=== PATIENT | female | born 1940 | race Caucasian/White ===

== ENCOUNTER 2017-03-29 04:22 | Inpatient (IN) | payer MEDICARE, OTHER ==
[2017-03-29] MEDS: traMADol 50 MG Tab PO PRN ×3 (06:32→18:13)
--- NOTE | 2017-03-29 09:06 | PCM.HP ---
H&P History of Present Illness - General Date of Service: 03/29/17 Admit Problem/Dx: Admission Diagnosis/Problem Admission Diagnosis/Problem Knee pain Source of Information: Patient, Old Records History Limitations: Reports: No Limitations - History of Present Illness Initial Comments - Free Text/Narative: 76-year-old female fell last night. She landed on left knee and complains of left knee swelling and pain. Pain is severe to the point that she is unable to bear any weight. Is associated with redness and stiffness. No fever or chills. She has a history of polymyositis, this has been stable on methotrexate and prednisone. She also has a history of PEs but recently was taken off anticoagulation. She denies any head injury chest pain or shortness of breath. Left Knee Pain Score (Numeric/FACES): 6 - Related Data Allergies/Adverse Reactions: Allergies Allergy/AdvReac Type Severity Reaction Status Date / Time ketorolac [From Toradol] Allergy Hives Verified 03/29/17 04:33 Bee Stings Allergy Hives Uncoded 03/29/17 04:33 Home Medications: Home Meds Folic Acid 800 mcg PO DAILY 05/19/16 [History] Glucosamine & Chonroitin Chewable 2 tab PO DAILY 05/19/16 [History] predniSONE [Prednisone] 5 mg PO DAILY 05/19/16 [History] EPINEPHrine [Epipen] 0.3 mg IM ONETIME PRN 06/28/16 [History] Calcium Carb/Vitamin D3/Vit K1 [Viactiv Soft Chew] 1 tab PO DAILY 03/29/17 [ History] Cholecalciferol (Vitamin D3) [Vitamin D3] 1,000 unit PO DAILY 03/29/17 [History] Methotrexate 10 mg PO WE@,18 03/29/17 [History] Multivitamin [Multivitamins] 2 tab PO DAILY 03/29/17 [History] Past Medical History HEENT History: Reports: Impaired Vision Cardiovascular History: Reports: Other (See Below) Other Cardiovascular History: June 2016: Presently has blood clot between toes on right foot. 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 Genitourinary History: Reports: None [employer] WORK[employer] History: Reports: , Other (See Below) Other OB/BYN History: total hysterectomy Musculoskeletal History: Reports: Other (See Below) Other Musculoskeletal History: IBM - Past Surgical History GI Surgical History: Reports: Appendectomy, Colonoscopy, EGD, Esophageal Dilatation Female Surgical History: Reports: Hysterectomy, Salpingo-Oophorectomy Musculoskeletal Surgical History: Reports: Hip Replacement Social & Family History - Family History Family Medical History: Noncontributory Cardiac: Reports: CAD Neurological: Reports: CVA Oncologic: Reports: Breast, Colon - Tobacco Use Smoking Status *Q: Never Smoker Second Hand Smoke Exposure: No - Caffeine Use Caffeine Use: Reports: Coffee Other Caffeine Use: 8 cups per day - Recreational Drug Use Recreational Drug Use: No H&P Review of Systems - Review of Systems: Review Of Systems: ROS reveals no pertinent complaints other than HPI. Exam - Exam Exam: See Below - Vital Signs Vital Signs: Last Vital Signs Temp 97.4 F 03/29/17 06:00 Pulse 72 03/29/17 06:00 Resp 16 03/29/17 06:00 BP 94/57 L 03/29/17 06:00 Pulse Ox 97 03/29/17 06:00 Weight: 47.4 kg - Exam General: Alert, Oriented, 4 HEENT: PERRLA, Hearing Intact, Mucosa Moist & [place], Nares Patent, Normal Nasal Septum, Posterior Pharynx Clear, Conjunctiva Clear, EOMI, EACs Clear, TMs Clear Neck: Supple, Trachea Midline, 2 Lungs: Clear to Auscultation, Normal Respiratory Effort Cardiovascular: Regular Rate, Regular Rhythm Abdomen: Normal Bowel Sounds, Soft (Female) Exam: Deferred Rectal (Female) Exam: Deferred Back Exam: Normal Inspection, Full Range of Motion, NT Extremities: Other (left knee effusion.tense.Tender.Decreased ROM) Skin: Warm, Dry, Intact Neurological: Cranial Nerves Intact, Reflexes Equal Bilateral Neuro Extensive - Mental Status: Alert, Oriented x3, Normal Mood/Affect, Normal Cognition Neuro Extensive - Motor, Sensory, Reflexes: CN II-XII Intact, Normal Gait, Normal Reflexes Psychiatric: Alert, Normal Affect, Normal Mood - Patient Data Result Diagrams: 03/30/17 05:50 03/30/17 05:50 *Q Meaningful Use (ADM) - VTE *Q VTE Criteria *Q: - Stroke *Q Stroke Criteria *Q: - AMI *Q AMI Criteria *Q: - Problem List (1) Hemarthrosis SNOMED Code(s): 70763418 ICD Code: M25.00 - HEMARTHROSIS, UNSPECIFIED JOINT Status: Acute Current Visit: Yes (2) Polymyositis SNOMED Code(s): 73347779 ICD Code: M33.20 - POLYMYOSITIS, ORGAN INVOLVEMENT UNSPECIFIED Status: Acute Current Visit: Yes (3) IBM (inclusion body myositis) SNOMED Code(s): 50648853 ICD Code: G72.41 - INCLUSION BODY MYOSITIS [IBM] Status: Acute Current Visit: Yes (4) Anemia SNOMED Code(s): 892882503 ICD Code: D64.9 - ANEMIA, UNSPECIFIED Status: Acute Current Visit: Yes (5) H/O venous thrombosis and embolism SNOMED Code(s): 096548733, 535084058 ICD Code: Z86.718 - PERSONAL HISTORY OF OTHER VENOUS THROMBOSIS AND EMBOLISM Status: Acute Current Visit: Yes Problem List Initiated/Reviewed/Updated: Yes Orders Last 24hrs: Medication Orders Enoxaparin Sodium (Lovenox) 30 mg SUBCUT DAILY EWA Tramadol HCl (Ultram) 50 mg PO Q6H PRN PRN Reason: Breakthrough Pain Last Admin: 03/29/17 06:32 Dose: 50 mg Assessment/Plan Comment:: I have consulted Dr. Chaidez, to determine further treatment options. I believe rest elevation ice might help we'll also use tramadol when necessary for pain. I 've asked physical outpatient therapy for evaluation to determine ambulation and disposition. I'll keep an eye on the anemia with a check of hemoglobin daily. We'll give her Lovenox in view of recent PE's for DVT and VTE prophylaxis
--- NOTE | 2017-03-29 14:51 | CR ---
INDICATION: Swollen knee. COMPARISON: None. LEFT KNEE SERIES: Mild degenerative osteoarthritis change tricompartmental regions. Mild suprapatellar joint effusion. No acute fracture, dislocation, destructive change otherwise. Heterotopic calcific nodular foci with lucent centers may represent phleboliths in the anterior prepatellar, suprapatellar region. Marked increased thickening, with lobular margins of the soft tissues of the medial compartment distal thigh, knee region anteriorly. IMPRESSION: 1. Mild degenerative osteoarthritis change with no other evidence of acute osseous pathology. 2. Lobular increased soft tissue thickening anterior medial compartment distal thigh, knee region, which may represent diffuse edema, inflammatory change from posttraumatic or inflammatory process versus possible large mass-like region which may represent fluid collection such as hematoma or seroma or other mass etiologies. If clinical suspicion exists for a fluctuant or a mass process in this region, then at least correlation with ultrasound would be recommended for further evaluation. MTDD
[2017-03-29] MEDS: Acetaminophen 325 MG Tab PO PRN ×2 (17:28→21:56)
[2017-03-29] MEDS: Enoxaparin 30 MG/0.3 ML Syringe SUBCUT SCH (17:30)
--- NOTE | 2017-03-29 22:04 | CONS ---
DATE OF CONSULTATION: 03/29/2017 PROBLEM: Left knee pain. HISTORY OF PRESENT ILLNESS: This pleasant 76-year-old white female began having problems with the lower extremities approximately 3 years ago. She was diagnosed with inclusion-body polymyositis and has noted progressive weakening in both legs during ambulation. She currently uses a walker and walks approximately half a mile per day. This last Wednesday, this patient was walking and tripped on a sidewalk and fell. She landed directly on her left knee. She noted pain, was unable to get up, and was brought to the emergency room and examined. She could not bear weight and was noted to have a significant hematoma of the left knee, and therefore, was admitted. Dr. Mejia requested consultation this morning on this pleasant lady. In visiting with her today, she states that she has noted moderate swelling and developing ecchymosis on the anterior aspect of the left knee. She reports it is painful for her to move her knee and describes most of her pain in the suprapatellar area right above the patella. She denies any previous injuries to the knee or any knee problems other than muscular weakness. On further visiting with this patient, she states that approximately a year ago, she was hit by a door and fell to the floor. She had pain in both shoulders, but primarily the right one. It was examined and felt to have "ligament tears." An MRI apparently was taken and apparently, the comment made that she may need another one. Since her fall on the right shoulder, she reports that she has been left with difficulty with active abduction and has difficulty starting about 40 degrees of abduction. She has significant weakness. No pain on palpation over the AC joint. There is no deformity. She has good passive range of motion. No swelling. Empty water glass test is positive. PHYSICAL EXAMINATION: Examination of the patient's left knee reveals moderate hematoma, early bruising, and some abrasions to be present. There is no evidence of infection at this time. She has no instability in the AP or mediolateral dimensions when tested at 0 and 30 degrees. The patient has marked pain on palpation in the suprapatellar area of the left knee, but also with medial Meli's testing of the knee. Sensation is intact. She moves her toes well and peripheral pulses +1/4. ASSESSMENT: Rotator cuff tear, right shoulder, chronic. PLAN: I will proceed with a shoulder series to see if there is underlying osteoarthritis and/or superior migration of the humeral head. I have also ordered an MRI. I believe, it is important to evaluate her right shoulder since she has a lower extremity weakness, she will need shoulder strength for assisted ambulation with her walker. Concerning her left knee, I am concerned that she has a distal quadriceps tendon tear that may necessitate surgery. Since she also has a positive medial Meli's, the MRI will evaluate the menisci as well. The patient understands our treatment plan, agrees, and therefore, radiological studies will be performed today with further discussion tomorrow based upon these radiological findings. I thank Dr. Finn for this interesting consult. Respectfully, /[id number] NIKHIL/TERRELL
[2017-03-30] MEDS: traMADol 50 MG Tab PO PRN ×3 (04:15→20:21)
--- NOTE | 2017-03-30 08:42 | ER ---
DATE SEEN: 03/29/2017 CHIEF COMPLAINT: Fall. HISTORY OF PRESENT ILLNESS: A 76-year-old female who fell on the left knee yesterday evening, comes back because of increasing swelling and pain. Moderate pain, associated with any movement and is spreading. She has a history of polymyositis and uses a walker. PAST MEDICAL HISTORY: DVT and PE. MEDICATIONS: Reviewed. ALLERGIES: Reviewed. PHYSICAL EXAMINATION: GENERAL: She is not in distress. VITAL SIGNS: Blood pressure is normal. Pulse 80 and temperature is 98. MUSCULOSKELETAL: Left knee moderate hip arthrosis, tenderness around the patella, decreased range of motion. LABORATORY DATA: Pending. IMAGING: Lot of soft tissue swelling, but no fracture noted. IMPRESSION: Hemarthrosis of the left knee. PLAN: Admit the patient. Involve Physical and Occupational Therapy, and Dr. Chaidez. Control pain. /[id number] FANTA/TERRELL
[2017-03-30] MEDS: Calcium Carbonate/Vitamin D3 1250 MG-200 Unit Tab PO SCH (08:56)
[2017-03-30] MEDS: predniSONE 5 MG Tab PO SCH (08:56)
[2017-03-30] MEDS: Multivitamin, Childrens Tab.Chew PO SCH (08:56)
[2017-03-30] MEDS: Cholecalciferol (Vitamin D3) 1,000 Unit Tab PO SCH (08:56)
[2017-03-30] MEDS: Folic Acid 0.8 MG Tab PO SCH (08:56)
[2017-03-30] MEDS: Enoxaparin 30 MG/0.3 ML Syringe SUBCUT SCH (08:57)
[2017-03-30] MEDS: CHONDROITIN PO SCH (08:59)
[2017-03-30] MEDS: GLUCOSAMINE PO SCH (08:59)
[2017-03-30] MEDS ORDERED: [UNRECOGNIZED DRUG - OTHER] PO SCH (09:00)
--- NOTE | 2017-03-30 11:52 | PN ---
DATE SEEN: 03/30/2017 CHIEF COMPLAINT: Knee pain. HISTORY OF PRESENT ILLNESS: This is a 76-year-old female admitted for knee pain and chronic right shoulder pain. The pain in the knee is better, swelling has slightly improved, but she is not able to bear any weight. REVIEW OF SYSTEMS: No fever or chills. PAST MEDICAL HISTORY: [facility]. PHYSICAL EXAMINATION: GENERAL: Well nourished. VITAL SIGNS: Blood pressure 109/59. She is afebrile. MUSCULOSKELETAL: Left knee moderate effusion, slightly fluctuant, better range of motion than yesterday. Normal peripheral pulses. IMAGING: MRI of the right knee showed effusion, possible small meniscal tear. IMPRESSION: 1. Left knee pain and hemarthrosis. 2. Anemia. Hemoglobin is 8.3 today. 3. Right shoulder pain, chronic. PLAN: Continue with treatment with ice, elevation, and ibuprofen. I will repeat a CBC tomorrow morning. I appreciate the wisdom and consultation from Dr. Chaidez, who will see her later today. /[id number] FANTA/TERRELL
[2017-03-30] MEDS: Acetaminophen 325 MG Tab PO PRN (21:55)
[2017-03-30] MEDS ORDERED: Ondansetron 4 MG/2 ML SDV IVPUSH PRN (22:16)
[2017-03-30] MEDS: Morphine 2 MG/ML Syringe IVPUSH PRN (22:29)
[2017-03-30] MEDS: Sodium Chloride 0.9% 10 ML Syringe FLUSH PRN (22:41)
[2017-03-31] MEDS: Sodium Chloride 0.9% 10 ML Syringe FLUSH PRN ×6 (00:27→18:52)
[2017-03-31] MEDS: Morphine 4 MG/ML Syringe IVPUSH PRN ×8 (00:27→23:37)
[2017-03-31] MEDS: Morphine 2 MG/ML Syringe IVPUSH PRN (04:47)
[2017-03-31] MEDS: Methotrexate 2.5 MG Tab PO SCH ×2 (07:46→17:54)
[2017-03-31] MEDS ORDERED: METHOTREXATE 10 MG PO SCH (08:00)
[2017-03-31] MEDS: Multivitamin, Childrens Tab.Chew PO SCH (08:04)
[2017-03-31] MEDS: predniSONE 5 MG Tab PO SCH (08:04)
[2017-03-31] MEDS: Calcium Carbonate/Vitamin D3 1250 MG-200 Unit Tab PO SCH (08:04)
[2017-03-31] MEDS: Cholecalciferol (Vitamin D3) 1,000 Unit Tab PO SCH (08:04)
[2017-03-31] MEDS: Folic Acid 0.8 MG Tab PO SCH (08:04)
[2017-03-31] MEDS: CHONDROITIN PO SCH (08:06)
[2017-03-31] MEDS: GLUCOSAMINE PO SCH (08:06)
[2017-03-31] MEDS ORDERED: Sodium Chloride 0.9% 250 ML IV SCH (08:15)
[2017-03-31] MEDS: Acetaminophen/HYDROcodone 325-5 MG Tab PO SCH ×3 (08:48→20:02)
--- NOTE | 2017-03-31 12:28 | PN ---
DATE SEEN: 03/31/2017 CHIEF COMPLAINT: Left knee pain. HISTORY OF PRESENT ILLNESS: This is a 76-year-old female, who was here yesterday. She had fallen the day before and injured the left knee. She complains of pain overnight that was uncontrollable. She got 4 mg of morphine, that apparently helped around 0300 hours. The swelling has worsened. PAST MEDICAL HISTORY: IBM, hypertension. ALLERGIES: Ketoralac. REVIEW OF SYSTEMS: No fever, chest pain, or shortness of breath. PHYSICAL EXAMINATION: VITAL SIGNS: Blood pressure is 111/50 and temperature is 97.6. CARDIOVASCULAR: Normal. EXTREMITIES: Revealed marked swelling of the knee, fluctuant, extremely tender, and stiff. There is also swelling extending up to the midthigh area. LABORATORY DATA: Hemoglobin 7.3 this morning. Sodium is 131. IMPRESSION: 1. Hemarthrosis and hematoma left knee and left thigh. 2. Anemia from blood loss. 3. IBM, stable, chronic. PLAN: 1. Discontinue Lovenox. 2. Start hydrocodone 1 tablet every 6 hours scheduled, use morphine p.r.n. 3. Type and cross transfuse 1 unit of PRBCs. Repeat a CBC in the morning. 4. Continue elevation and ice. /[id number] FANTA/TERRELL
--- NOTE | 2017-03-31 13:14 | CR ---
INDICATION: Rule out possible patellar tendon disruption. (MRI may be inconclusive.) KNEES, 2 VIEWS: Both lateral views show good position and alignment without any significant variation of patellar height on both lateral views. MTDD
[2017-03-31] MEDS: Docusate Sodium 100 MG Cap PO SCH ×2 (14:05→20:02)
--- NOTE | 2017-03-31 16:18 | PN ---
DATE SEEN: 03/31/2017 PROBLEM: 1. Hematoma, left knee. 2. Meniscal tear medial meniscus, left knee. SUBJECTIVE: The patient states that she had a very uncomfortable night and has some pain when she tries to move her leg. She is concerned about the ecchymosis developing around it as well. OBJECTIVE: Today, her vital signs are stable except her blood pressure is 92/47. The patient's hemoglobin is also down to 7.9. Her neurovascular integrity is intact. The swelling is less pronounced around the knee. No evidence of infection. In trying to put a brace on her leg today, she stated it was too uncomfortable, therefore we did not do it. She does not want to get up and try ambulation today. Dr. Finn has discontinued physical therapy today. ASSESSMENT: 1. Hematoma, left knee. 2. Meniscal tear medial meniscus, left knee. 3. Anemia. PLAN: 1. Orthopedically, we will delay her physical therapy today because of her discomfort. When she is up, she can weight bear as tolerated with the brace on. Brace is to be off while she is in bed. 2. The patient will restart her aspirin as antithrombotic agent 325 mg p.o. b.i.d. 3. Dr. Finn will continue to follow medically and address her anemia (the patient states she is receiving transfusion today). /[id number] NIKHIL/TERRELL
[2017-03-31] MEDS: Aspirin 325 MG Tab.EC PO SCH (20:02)
[2017-04-01] MEDS: Acetaminophen/HYDROcodone 325-5 MG Tab PO SCH ×2 (01:49→07:41)
[2017-04-01] MEDS: Morphine 4 MG/ML Syringe IVPUSH PRN (06:04)
[2017-04-01] MEDS: Sodium Chloride 0.9% 10 ML Syringe FLUSH PRN (07:32)
[2017-04-01] MEDS: GLUCOSAMINE PO SCH (08:52)
[2017-04-01] MEDS: CHONDROITIN PO SCH (08:52)
[2017-04-01] MEDS: predniSONE 5 MG Tab PO SCH (08:53)
[2017-04-01] MEDS: Aspirin 325 MG Tab.EC PO SCH (08:53)
[2017-04-01] MEDS: Folic Acid 0.8 MG Tab PO SCH (08:53)
[2017-04-01] MEDS: Docusate Sodium 100 MG Cap PO SCH (08:53)
[2017-04-01] MEDS: Cholecalciferol (Vitamin D3) 1,000 Unit Tab PO SCH (08:53)
[2017-04-01] MEDS: Calcium Carbonate/Vitamin D3 1250 MG-200 Unit Tab PO SCH (08:53)
[2017-04-01] MEDS: Multivitamin, Childrens Tab.Chew PO SCH (08:53)
[2017-04-01 09:36] VITALS: BP 100/60
--- NOTE | 2017-04-01 09:55 | PN ---
DATE SEEN: 04/01/2017 CHIEF COMPLAINT: Leg and knee pain. HISTORY OF PRESENT ILLNESS: A 76-year-old female with soft tissue injury to the left knee causing hemarthrosis and hematoma. Pain is better. She slept well last night. REVIEW OF SYSTEMS: She feels weak. Denies chest pain or shortness of breath. ALLERGIES: Reviewed. MEDICATIONS: Reviewed. PHYSICAL EXAMINATION: VITAL SIGNS: Blood pressure is 119/69 and pulse is 82. She is afebrile. CARDIOVASCULAR: Normal. RESPIRATIONS: Clear. MUSCULOSKELETAL: Revealed marked swelling of the left thigh and knee. Mildly tender to palpation and warm. Extremities have normal peripheral pulses. LABORATORY DATA: Labs today; hemoglobin is up to 8.6. Electrolytes are normal with the exception of sodium which is 132. FINAL IMPRESSION: 1. Hematoma, left thigh. 2. Hemarthrosis of the left knee. 3. Anemia from blood loss. 4. Inclusion body myositis, chronic. 5. History of pulmonary embolism. PLAN: The patient might go to swing bed for rehab today with continuation of conservative measures, pain control, and a repeat hemoglobin. /[id number] FANTA/TERRELL
--- NOTE | 2017-04-02 09:22 | DISCH ---
DISCHARGE DATE: 04/01/2017 REASON FOR ADMISSION: Hemarthrosis of the left knee. DISCHARGE DIAGNOSES: Hemarthrosis, left knee; hematoma, left thigh; anemia of blood loss; inclusion body myositis; and history of pulmonary embolisms. PROCEDURES: None. CONSULTATIONS: Dr. Chaidez and Physical Therapy. BRIEF HISTORY: A 76-year-old female who fell, landed on the left knee, came in with pain and inability to bear any weight and swelling. She was found to have a huge swelling and effusion to the left knee. She was admitted for pain control and a consultation with Dr. Chaidez, who did an MRI that did not show any significant surgical findings. Her hemoglobin dropped to 7.3, necessitating 1 unit of PRBCs. Her pain was controlled initially by oral tramadol, but later by morphine and hydrocodone as needed. She was deemed unable to go back home because she is not able to bear weight right away. As such, she is being discharged to swing bed for physical strengthening and disposition. DISCHARGE MEDICATIONS: She will use hydrocodone p.r.n. for pain and continue the home doses of methotrexate and prednisone. Please note that I spent more than 35 minutes in the discharge of the patient. /[id number] FANTA/TERRELL
--- NOTE | 2017-05-11 15:01 | CR ---
INDICATION: Osteoarthritis. RIGHT SHOULDER, 3 VIEWS: Three views of the right shoulder revealed no evidence of fracture or dislocation. Mild osteoarthritis is noted. MTDD
== END 2017-04-01 09:20 | disposition swing bed (61) | DRG 554 ==
LOC: FB.ED 04:22 → FB.MS 05:29 → OBSVTOIN 17:09
PROVIDERS: ADMIT Family Medicine; ATTEND Family Medicine
DX: M25.062 Hemarthrosis, left knee (principal); D62 Acute posthemorrhagic anemia; M25.552 Pain in left hip; M33.20 Polymyositis, organ involvement unspecified; S70.12XA Contusion of left thigh, initial encounter; W19.XXXA Unspecified fall, initial encounter; G72.41 Inclusion body myositis [IBM]; Z86.711 Personal history of pulmonary embolism; M25.512 Pain in left shoulder; M75.121 Complete rotator cuff tear or rupture of right shoulder, not specified as traumatic
CPT/HCPCS: 36415; 73030; 73221; 73562; 73721; 80048; 85025; 99285; A9270 ×2; 36430; 73560-50; 80053; 86850; 86900; 86901; 86920; 86922; 97165-GO; 99283; J1650; J2270; J7050; J8610; P9016

== ENCOUNTER 2017-04-01 09:24 | Inpatient (IN) | payer MEDICARE, OTHER ==
[2017-04-01] MEDS: Acetaminophen/HYDROcodone 325-5 MG Tab PO PRN ×2 (19:02→22:39)
[2017-04-01] MEDS: Docusate Sodium 100 MG Cap PO SCH (20:41)
[2017-04-01] MEDS: Enoxaparin 40 MG/0.4 ML Syringe SUBCUT SCH (20:42)
[2017-04-02] MEDS: Acetaminophen/HYDROcodone 325-5 MG Tab PO PRN ×2 (04:49→09:30)
--- NOTE | 2017-04-02 08:28 | PN ---
DATE SEEN: 04/01/2017 A 76-year-old white female. DIAGNOSES: 1. Hematoma, left knee. 2. Contusion, left knee. 3. Medial meniscal tear, left knee. 4. Polymyositis with bilateral thigh atrophy. SUBJECTIVE: The patient states that she is doing better today. She feels, however, that the brace is uncomfortable, but does very well with an Phong wrap according to her description today, as well as the physical therapist. She has been transferred to swing bed with stable vital signs and neurovascular integrity intact. Resolving ecchymosis and swelling of the left knee is noted. Since she is progressing well, we will continue. She has had a pulmonary embolism in the past, so we will restart the Lovenox at 40 mg subcu daily since the time for continued bleeding into her left knee has passed. Her platelets on admission were over 400,000. Current vital signs are stable. /[id number] NIKHIL/TERRELL
[2017-04-02] MEDS ORDERED: GLUCOSAMINE PO SCH (09:00)
[2017-04-02] MEDS ORDERED: CHONDROITIN PO SCH (09:00)
[2017-04-02] MEDS: Docusate Sodium 100 MG Cap PO SCH ×2 (09:27→21:52)
[2017-04-02] MEDS: Calcium Carbonate/Vitamin D3 1250 MG-200 Unit Tab PO SCH (09:28)
[2017-04-02] MEDS: predniSONE 5 MG Tab PO SCH (09:28)
[2017-04-02] MEDS: Cholecalciferol (Vitamin D3) 1,000 Unit Tab PO SCH (09:28)
[2017-04-02] MEDS: Multivitamin, Childrens Tab.Chew PO SCH (09:28)
[2017-04-02] MEDS: Folic Acid 0.8 MG Tab PO SCH (09:28)
[2017-04-02] MEDS ORDERED: Acetaminophen/Codeine 300-30 MG Tab PO PRN (10:55)
[2017-04-02] MEDS: fentaNYL 12 MCG/HR Transdermal Patch TRDERM SCH (14:00)
--- NOTE | 2017-04-02 15:28 | PN ---
DATE SEEN: 04/02/2017 HISTORY: Elsa is a 76-year-old woman from [place], [place] with a history of severe myopathy and leg weakness. She has been managed by Dr. Pozo at [facility] with prednisone and methotrexate. The patient fell sustaining an injury to her left knee on 03/29/2017. She was admitted to [place]. X-ray and MRI of the knee were read as negative for fracture. She has been followed conservatively with physical therapy, Phong wrap, and pain medications. Since that time, she states that she was taking morphine 4 mg IV every 2 hours for the pain until she was switched to swing bed and her IV was taken out. She is wondering about getting a patch for pain. She is comfortable while laying. She is not having symptoms of infection, fever, chills, cough, dyspnea, chest pain, abdominal pain, or nausea. She still states that she is having pain in the left knee and the therapy has only progressed to up pulling herself with her feet in a wheelchair. PHYSICAL EXAMINATION: GENERAL: She is alert. She is a good historian. VITAL SIGNS: Blood pressure 108/74, pulse 87 and regular, respirations 18, O2 temperature 98.6, O2 saturation 98% on room air. SKIN. Anicteric. She has extensive ecchymoses centered at the left knee that extends up to the groin and onto her pubic tubercle area. This also extends down to the ankle on the left. She has no pubic area tenderness but marked tenderness to palpation of the knee. She does have extension to 180 degrees and flexion to greater than 90 degrees that is fairly comfortable and no pain on varus valgus stress of the knee. HEENT: Shows her mouth to be dry. Pupils are equal and reactive. Lungs are clear. HEART: Regular without murmur or gallop. ABDOMEN: Soft and nontender. EXTREMITIES: Showed ecchymotic and tender knee and leg as described above. She does have slight edema in the left foot, no edema in the right foot, and she is generally weak. LABORATORY DATA: Hemoglobin 8.0, MCV 83, and platelets 364 with creatinine 0.3. ASSESSMENT: 1. Contusion of left knee with large ecchymosis. 2. Severe myopathy with weakness on the immunosuppressive therapy. 3. History of pulmonary embolism. Currently on thrombosis prophylaxis with enoxaparin. 4. Anemia exacerbated by recent blood loss into the knee injury. PLAN: We will add oral iron, we will place a Duragesic 12 patch, and supplement her with p.r.n. Tylenol with codeine. She will continue physical therapy with increasing weightbearing as tolerated with plans to go home. In addition to this intervention, we will provide her palliative care for the pain and discomfort and ambulatory difficulty. I anticipate another 4 to 5 days of swing bed stay prior to returning home. /[id number] MARGARITA/MODL
[2017-04-02] MEDS: Acetaminophen/Codeine 300-30 MG Tab PO PRN ×2 (16:12→21:53)
[2017-04-02] MEDS: Ferrous Sulfate 325 MG Tab PO SCH (17:37)
[2017-04-02] MEDS: Enoxaparin 40 MG/0.4 ML Syringe SUBCUT SCH (21:52)
[2017-04-03] MEDS: Acetaminophen/Codeine 300-30 MG Tab PO PRN ×3 (07:41→19:41)
[2017-04-03] MEDS: Multivitamin, Childrens Tab.Chew PO SCH (08:49)
[2017-04-03] MEDS: Calcium Carbonate/Vitamin D3 1250 MG-200 Unit Tab PO SCH (08:49)
[2017-04-03] MEDS: predniSONE 5 MG Tab PO SCH (08:49)
[2017-04-03] MEDS: Folic Acid 0.8 MG Tab PO SCH (08:49)
[2017-04-03] MEDS: Cholecalciferol (Vitamin D3) 1,000 Unit Tab PO SCH (08:50)
[2017-04-03] MEDS: Docusate Sodium 100 MG Cap PO SCH ×2 (08:50→21:51)
[2017-04-03] MEDS: Ferrous Sulfate 325 MG Tab PO SCH ×2 (08:50→18:17)
[2017-04-03] MEDS: Enoxaparin 40 MG/0.4 ML Syringe SUBCUT SCH (21:51)
[2017-04-04] MEDS: Acetaminophen/Codeine 300-30 MG Tab PO PRN ×3 (01:31→21:51)
[2017-04-04] MEDS: Ferrous Sulfate 325 MG Tab PO SCH ×2 (08:35→17:11)
[2017-04-04] MEDS: predniSONE 5 MG Tab PO SCH (08:35)
[2017-04-04] MEDS: Cholecalciferol (Vitamin D3) 1,000 Unit Tab PO SCH (08:35)
[2017-04-04] MEDS: Calcium Carbonate/Vitamin D3 1250 MG-200 Unit Tab PO SCH (08:36)
[2017-04-04] MEDS: Multivitamin, Childrens Tab.Chew PO SCH (08:36)
[2017-04-04] MEDS: Folic Acid 0.8 MG Tab PO SCH (08:36)
[2017-04-04] MEDS: Docusate Sodium 100 MG Cap PO SCH ×2 (08:36→21:36)
--- NOTE | 2017-04-04 10:53 | PN ---
DATE SEEN: 04/04/2017 SUBJECTIVE: Elsa is a 76-year-old woman with severe generalized myopathy and leg weakness. She fell on March 29, sustained an injury to her left knee, and was seen at the emergency room at [place]. MRI was negative and she was admitted for pain control and rehab. She is in swing bed now for recuperation. She is getting physical therapy to the knee, but still has significant pain in the knee with ecchymosis. She was transfused for her anemia and is now on twice per day oral iron. PAST MEDICAL HISTORY: Also is positive for pulmonary embolism, so she is being prophylaxed with daily Lovenox. She is getting better pain control with her current Duragesic patch supplemented with Tylenol and codeine. OBJECTIVE: GENERAL: She is alert. She is a good historian. LUNGS: Clear. HEART: Regular. EXTREMITIES: Knee exam reveals ecchymoses that extends up to her upper groin and down to the mid leg, left side. She is able to lift the heel up off the bed with difficulty, but she reports pain with movement of the knee. LABORATORY DATA: Laboratory done 2 days ago showed a hemoglobin of 8 g, MCV 83, white count 5500, and platelets 364. ASSESSMENT: 1. Left knee contusion. No indication of occult fracture. The formal radiology reading of the MRI is still pending, however. 2. Underlying generalized myopathy, on immunosuppressive therapy. 3. History of pulmonary embolism. 4. Chronic anemia with additional blood loss anemia. PLAN: We will continue to provide physical therapy and analgesia for her acute knee injury as well as maintain her medications for the myopathy. We will provide palliative care for symptoms of pain, but anticipate she will return to home again independently. I will recheck labs again in 48 hours and hope for discharge to home within 1-2 weeks. /[id number] MARGARITA/TERRELL
[2017-04-04] MEDS: Enoxaparin 40 MG/0.4 ML Syringe SUBCUT SCH (21:36)
[2017-04-05] MEDS: Folic Acid 0.8 MG Tab PO SCH (08:44)
[2017-04-05] MEDS: Multivitamin, Childrens Tab.Chew PO SCH (08:44)
[2017-04-05] MEDS: predniSONE 5 MG Tab PO SCH (08:44)
[2017-04-05] MEDS: Cholecalciferol (Vitamin D3) 1,000 Unit Tab PO SCH (08:44)
[2017-04-05] MEDS: Ferrous Sulfate 325 MG Tab PO SCH ×2 (08:44→17:21)
[2017-04-05] MEDS: Calcium Carbonate/Vitamin D3 1250 MG-200 Unit Tab PO SCH (08:44)
[2017-04-05] MEDS: Docusate Sodium 100 MG Cap PO SCH ×2 (08:44→21:25)
[2017-04-05] MEDS: fentaNYL 12 MCG/HR Transdermal Patch TRDERM SCH (12:58)
[2017-04-05] MEDS: Magnesium Hydroxide 400 MG/5 ML Susp 30 ML Cup PO PRN (13:24)
[2017-04-05] MEDS: Acetaminophen/Codeine 300-30 MG Tab PO PRN ×2 (17:21→23:21)
[2017-04-05] MEDS: Enoxaparin 40 MG/0.4 ML Syringe SUBCUT SCH (21:24)
[2017-04-06] MEDS: Acetaminophen/Codeine 300-30 MG Tab PO PRN ×3 (07:32→22:27)
[2017-04-06] MEDS: predniSONE 5 MG Tab PO SCH (08:52)
[2017-04-06] MEDS: Multivitamin, Childrens Tab.Chew PO SCH (08:52)
[2017-04-06] MEDS: Ferrous Sulfate 325 MG Tab PO SCH ×2 (08:52→17:36)
[2017-04-06] MEDS: Calcium Carbonate/Vitamin D3 1250 MG-200 Unit Tab PO SCH (08:52)
[2017-04-06] MEDS: Folic Acid 0.8 MG Tab PO SCH (08:52)
[2017-04-06] MEDS: Cholecalciferol (Vitamin D3) 1,000 Unit Tab PO SCH (08:52)
[2017-04-06] MEDS: Docusate Sodium 100 MG Cap PO SCH ×2 (08:52→21:07)
--- NOTE | 2017-04-06 11:17 | PN ---
DATE SEEN: 04/06/2017 PROBLEMS: 1. Contusion of left knee with hematoma. 2. Left medial meniscal tear per MRI. 3. Irreparable rotator cuff tear, right shoulder. SUBJECTIVE: This pleasant patient states that she is making good progress with ambulation. She continues to work diligently with physical and occupational therapy. OBJECTIVE: Today, she has a resolving ecchymosis over the left knee. She does have some bullae superior medial to the knee. The largest one is about the size of a 50 cent piece and then about 5 mm in height. There is no evidence of infection. She moves her knee well. She continues with the positive medial Meli's. This patient denies any pain with ambulation, getting up out of a chair or twisting or turning, but does have the positive medial Meli's. If she is able to do daily living activities, I would not recommend arthroscopy. If she does have problems with stairs twisting, turning, getting up from a chair or squatting with the positive medial Meli's, then I would recommend diagnostic and operative arthroscopy. The patient will continue with PT and OT and further care for her other medical problems including chronic anemia with her primary care provider. /[id number] NIKHIL/TERRELL
--- NOTE | 2017-04-06 12:05 | PN ---
DATE SEEN: 04/06/2017 SUBJECTIVE: Elsa is a 76-year-old woman with severe myopathy and osteopenia who fell injuring her left knee. She was admitted to acute care on 03/29, consulted by Dr. Chaidez from Orthopedics and admitted to swing bed on 04/01/2017 for continued recuperation. She also injured her shoulder and has had prior shoulder pain as well limiting her ability to use crutches, walker, etc. The patient states she is feeling okay. She feels like the rehab is going very slowly and she has pain with movement of her knee. OBJECTIVE: VITAL SIGNS: Blood pressure 95/50, pulse 76 and regular, respirations 16, temp 97.9, O2 saturation 95% on room air. SKIN: Shows ecchymosis extending from the midthigh down to the ankle, left knee. There are two blood blisters overlying the knee. HEENT: Shows her to be alert, oriented, and a good historian. Respirations are easy. Pulses regular. EXTREMITIES: Edema of the left leg. Right leg is clear. LABORATORY DATA: Hemoglobin 8.1 g. MCV 86. Electrolytes normal. Review of the MRI report showed rotator cuff tear, right shoulder; medial meniscus injury, left knee; and probable patellar fracture, left knee. ASSESSMENT: 1. Left knee injury and right shoulder injury, healing slowly with rehab. 2. Chronic myopathy, on methotrexate and prednisone. 3. Anemia. 4. History of pulmonary embolism, on Lovenox prophylaxis. PLAN: We will continue rehab and analgesia as necessary. We will continue her iron therapy and anticipate at least another week of rehab with the plans to go home after that. /[id number] RO/MODL
[2017-04-06] MEDS: Enoxaparin 40 MG/0.4 ML Syringe SUBCUT SCH (21:07)
[2017-04-07] MEDS: Ferrous Sulfate 325 MG Tab PO SCH ×2 (09:01→17:56)
[2017-04-07] MEDS: Methotrexate 2.5 MG Tab PO SCH ×2 (09:02→17:56)
[2017-04-07] MEDS: Calcium Carbonate/Vitamin D3 1250 MG-200 Unit Tab PO SCH (09:03)
[2017-04-07] MEDS: Multivitamin, Childrens Tab.Chew PO SCH (09:03)
[2017-04-07] MEDS: Docusate Sodium 100 MG Cap PO SCH ×2 (09:03→20:38)
[2017-04-07] MEDS: Cholecalciferol (Vitamin D3) 1,000 Unit Tab PO SCH (09:04)
[2017-04-07] MEDS: predniSONE 5 MG Tab PO SCH (09:04)
[2017-04-07] MEDS: Acetaminophen/Codeine 300-30 MG Tab PO PRN ×3 (09:04→22:32)
[2017-04-07] MEDS: Folic Acid 0.8 MG Tab PO SCH (09:04)
[2017-04-07] MEDS: Enoxaparin 40 MG/0.4 ML Syringe SUBCUT SCH (20:38)
[2017-04-08] MEDS: Acetaminophen/Codeine 300-30 MG Tab PO PRN ×3 (05:57→21:40)
[2017-04-08] MEDS: Ferrous Sulfate 325 MG Tab PO SCH ×2 (08:39→19:29)
[2017-04-08] MEDS: Calcium Carbonate/Vitamin D3 1250 MG-200 Unit Tab PO SCH (08:39)
[2017-04-08] MEDS: Docusate Sodium 100 MG Cap PO SCH ×2 (08:40→20:58)
[2017-04-08] MEDS: Multivitamin, Childrens Tab.Chew PO SCH (08:40)
[2017-04-08] MEDS: predniSONE 5 MG Tab PO SCH (08:40)
[2017-04-08] MEDS: Folic Acid 0.8 MG Tab PO SCH (08:40)
[2017-04-08] MEDS: Cholecalciferol (Vitamin D3) 1,000 Unit Tab PO SCH (08:40)
--- NOTE | 2017-04-08 13:08 | PN ---
DATE SEEN: 04/08/2017 PROBLEMS: 1. Chronic rotator cuff tear, right shoulder. 2. Contusion, left knee, with hematoma. 3. Medial meniscal tear, left knee. SUBJECTIVE: The patient states she is doing well, but at times when she is walking, she will get a sharp pain in her knee. As discussed with her, this could possibly be related to her torn medial meniscus. OBJECTIVE: VITAL SIGNS: Today, the patient's vital signs are stable. MUSCULOSKELETAL: The patient's knee is healing well. There is no evidence of infection. She has 2 large bullae, and the bullae are punctured with an 18- gauge sterile needle. All fluid removed. Then, Xeroform, 4x4s, Phong wrap applied. PLAN: The patient will start warm soapy soaks on her knee twice a day. Continue with physical therapy. We will observe her progress and possible need for operative arthroscopy. /[id number] NIKHIL/TERRELL
--- NOTE | 2017-04-08 15:22 | PN ---
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 She fell and sustained an injury to her left knee consisting of medial meniscal tear and a likely nondisplaced patellar fracture. She has been treated with conservative therapy with physical therapy and analgesics since she had a significant hemoglobin drop with extensive ecchymosis about the left leg and knee. She has been progressing slowly in physical therapy. She still reports pain with movement. She has been on a Duragesic patch and I have just discontinued this. She is hoping to return to her home next week if therapy progresses adequately. PHYSICAL EXAMINATION: GENERAL: She is alert and comfortable. VITAL SIGNS: Blood pressure 122/40, pulse 80 and regular, respirations 18, temperature 97.5, and 93% O2 saturation on room air. SKIN: Clear except for the large ecchymosis from the left groin to the left ankle. She has a compression wrap in place about the knee. Her pulse is regular. NEUROLOGIC: Mental status exam is intact and other than the limitations from her left knee, she has symmetric extremity motion but generalized weakness. LABORATORY: Last hemoglobin 8.1 g, MCV 86, white count 4800, platelets 385, reticulocyte count 237. Electrolytes normal. Creatinine 0.2. ASSESSMENT: 1. Left knee injury post fall due to generalized idiopathic myopathy. 2. Anemia, chronic, with superimposed blood loss anemia. 3. Remote history of pulmonary embolism, now on enoxaparin prophylaxis. 4. Chronic idiopathic myopathy, on methotrexate and prednisone. PLAN: I have discussed with her staying off the Duragesic patch now and managing her pain with just oral medication. We have also had discussion about her potential return to home. I have encouraged her to consider assisted living as she does have stairs in her house and has to go up and down a flight of steps to go to the bathroom and to her shower every day. I have also discussed with her that she is not to be doing any driving. She will have her routine followup with Dr. Pozo regarding the myopathy once she has recuperated adequately from her knee injury. /[id number] RO/MODL
[2017-04-08] MEDS: Enoxaparin 40 MG/0.4 ML Syringe SUBCUT SCH (20:58)
[2017-04-09] MEDS: Acetaminophen/Codeine 300-30 MG Tab PO PRN ×2 (06:28→15:11)
[2017-04-09] MEDS: Ferrous Sulfate 325 MG Tab PO SCH ×2 (09:13→18:11)
[2017-04-09] MEDS: Calcium Carbonate/Vitamin D3 1250 MG-200 Unit Tab PO SCH (09:13)
[2017-04-09] MEDS: Multivitamin, Childrens Tab.Chew PO SCH (09:15)
[2017-04-09] MEDS: Folic Acid 0.8 MG Tab PO SCH (09:16)
[2017-04-09] MEDS: Docusate Sodium 100 MG Cap PO SCH ×2 (09:16→21:30)
[2017-04-09] MEDS: Cholecalciferol (Vitamin D3) 1,000 Unit Tab PO SCH (09:16)
[2017-04-09] MEDS: predniSONE 5 MG Tab PO SCH (09:16)
[2017-04-09] MEDS: Enoxaparin 40 MG/0.4 ML Syringe SUBCUT SCH (21:30)
[2017-04-10] MEDS: Acetaminophen/Codeine 300-30 MG Tab PO PRN ×3 (05:08→20:32)
[2017-04-10] MEDS: Ferrous Sulfate 325 MG Tab PO SCH ×2 (09:00→17:58)
[2017-04-10] MEDS: Multivitamin, Childrens Tab.Chew PO SCH (09:01)
[2017-04-10] MEDS: Cholecalciferol (Vitamin D3) 1,000 Unit Tab PO SCH (09:01)
[2017-04-10] MEDS: Folic Acid 0.8 MG Tab PO SCH (09:01)
[2017-04-10] MEDS: Docusate Sodium 100 MG Cap PO SCH ×2 (09:01→20:28)
[2017-04-10] MEDS: predniSONE 5 MG Tab PO SCH (09:01)
[2017-04-10] MEDS: Calcium Carbonate/Vitamin D3 1250 MG-200 Unit Tab PO SCH (09:01)
[2017-04-10] MEDS: Enoxaparin 40 MG/0.4 ML Syringe SUBCUT SCH (20:28)
[2017-04-11] MEDS: Acetaminophen/Codeine 300-30 MG Tab PO PRN ×3 (05:31→21:30)
[2017-04-11] MEDS: Calcium Carbonate/Vitamin D3 1250 MG-200 Unit Tab PO SCH (09:18)
[2017-04-11] MEDS: Docusate Sodium 100 MG Cap PO SCH ×2 (09:18→21:00)
[2017-04-11] MEDS: Multivitamin, Childrens Tab.Chew PO SCH (09:18)
[2017-04-11] MEDS: Ferrous Sulfate 325 MG Tab PO SCH ×2 (09:18→18:51)
[2017-04-11] MEDS: Folic Acid 0.8 MG Tab PO SCH (09:19)
[2017-04-11] MEDS: Cholecalciferol (Vitamin D3) 1,000 Unit Tab PO SCH (09:19)
[2017-04-11] MEDS: predniSONE 5 MG Tab PO SCH (09:19)
--- NOTE | 2017-04-11 17:07 | PCM.PN ---
- General Info Date of Service: 04/11/17 Admission Dx/Problem (Free Text): Patient states left knee still causes pain. He says Tylenol 3 helps with doesn' t take it away. She would like no pain but she understands that that she will have some and this is okay with her at this time. She lots of bruising. She states she was anemic was requesting if she hemoglobin to make sure her anemia is better. She had blood transfusions in the hospitalization. - Patient Data Vitals - Most Recent: Last Vital Signs Temp 97.9 F 04/11/17 08:00 Pulse 79 04/11/17 08:00 Resp 16 04/11/17 08:00 BP 91/55 L 04/11/17 08:00 Pulse Ox 98 04/11/17 08:00 Weight - Most Recent: 104 lb 9.6 oz I&O - Last 24 Hours: Intake & Output 04/11/17 04/11/17 04/11/17 06:59 14:59 22:59 Intake Total 200 Balance 200 Med Orders - Current: Current Medications Acetaminophen/Codeine Phosphate (Tylenol With Codeine No.3 300mg/30mg) 2 tab PO Q6H PRN PRN Reason: Pain Last Admin: 04/11/17 13:16 Dose: 2 tab Calcium Carbonate (Calcium Carbonate/Vitamin D 1250 Mg-200 Unit) 1 tab PO DAILY [facility] Last Admin: 04/11/17 09:18 Dose: 1 tab Cholecalciferol (Vitamin D3) 1,000 units PO DAILY [facility] Last Admin: 04/11/17 09:19 Dose: 1,000 units Docusate Sodium (Colace) 100 mg PO BID [facility] Last Admin: 04/11/17 09:18 Dose: 100 mg Enoxaparin Sodium (Lovenox) 40 mg SUBCUT DAILY@2100 [facility] Last Admin: 04/10/17 20:28 Dose: 40 mg Ferrous Sulfate (Ferrous Sulfate) 325 mg PO BIDMEALS [facility] Last Admin: 04/11/17 09:18 Dose: 325 mg Folic Acid (Folic Acid) 0.8 mg PO DAILY [facility] Last Admin: 04/11/17 09:19 Dose: 0.8 mg Magnesium Hydroxide (Milk Of Magnesia) 30 ml PO DAILY PRN PRN Reason: Constipation Last Admin: 04/05/17 13:24 Dose: 30 ml Methotrexate (Methotrexate) 10 mg PO WE@08,18 [facility] Last Admin: 04/07/17 17:56 Dose: 10 mg Multivitamins/Minerals/Vitamin C (Childrens Chewable Vitamin) 2 tab PO DAILY [facility] Last Admin: 04/11/17 09:18 Dose: 2 tab Prednisone (Prednisone) 5 mg PO DAILY [facility] Last Admin: 04/11/17 09:19 Dose: 5 mg Discontinued Medications Acetaminophen/Codeine Phosphate (Tylenol With Codeine No.3 300mg/30mg) 1 tab PO Q6H PRN PRN Reason: Pain Hydrocodone Bitart/Acetaminophen ([place] 325-5 Mg) 1 tab PO Q4H PRN PRN Reason: Breakthrough Pain Last Admin: 04/02/17 09:30 Dose: 1 tab Fentanyl (Duragesic) 12 mcg TRDERM Q72H [facility] Stop: 04/08/17 06:00 Last Admin: 04/05/17 12:58 Dose: 12 mcg Miscellaneous Information (Remove Patch) 1 ea TRDERM ONETIME ONE Stop: 04/08/17 06:01 Last Admin: 04/08/17 05:54 Dose: 1 ea Non-Formulary Medication (Glucosamine & Chonroitin Chewable) 2 tab PO DAILY [facility] Last Admin: 04/02/17 09:32 Dose: Not Given - Exam Neck: Supple Lungs: Normal Respiratory Effort Extremities: Other (Left knee I did not examine other than its mildly swollen I did not move it today.) Skin: Ecchymosis (Left leg with hematoma medial thigh) - Problem List & Annotations (1) Contusion of left knee SNOMED Code(s): 09544216, 252909400 Code(s): S80.02XA - CONTUSION OF LEFT KNEE, INITIAL ENCOUNTER Status: Acute Current Visit: Yes (2) Hematoma SNOMED Code(s): 666845177 Code(s): T14.8 - OTHER INJURY OF UNSPECIFIED BODY REGION Status: Acute Current Visit: Yes (3) Anemia SNOMED Code(s): 511146998 Code(s): D64.9 - ANEMIA, UNSPECIFIED Status: Acute Current Visit: No - Problem List Review Problem List Initiated/Reviewed/Updated: Yes - My Orders Last 24 Hours: My Active Orders 04/12/17 05:11 HEMOGLOBIN/HEMATOCRIT,HH [HEME] AM - Plan Plan:: 1. H/H in the a.m. 2. Continue PT/OT 3. Continue current care.
[2017-04-11] MEDS: Enoxaparin 40 MG/0.4 ML Syringe SUBCUT SCH (21:00)
[2017-04-11] MEDS: Magnesium Hydroxide 400 MG/5 ML Susp 30 ML Cup PO PRN (21:00)
[2017-04-12] MEDS: Acetaminophen/Codeine 300-30 MG Tab PO PRN ×2 (05:26→15:01)
[2017-04-12] MEDS: Ferrous Sulfate 325 MG Tab PO SCH ×2 (07:49→18:26)
[2017-04-12] MEDS: Cholecalciferol (Vitamin D3) 1,000 Unit Tab PO SCH (08:07)
[2017-04-12] MEDS: predniSONE 5 MG Tab PO SCH (08:08)
[2017-04-12] MEDS: Calcium Carbonate/Vitamin D3 1250 MG-200 Unit Tab PO SCH (08:08)
[2017-04-12] MEDS: Folic Acid 0.8 MG Tab PO SCH (08:08)
[2017-04-12] MEDS: Docusate Sodium 100 MG Cap PO SCH ×2 (08:08→20:50)
[2017-04-12] MEDS: Multivitamin, Childrens Tab.Chew PO SCH (08:08)
--- NOTE | 2017-04-12 16:32 | PN ---
DATE SEEN: 04/12/2017 PROBLEM: 1. Traumatic hematoma, left knee. 2. Medial meniscal tear, left knee. 3. Irreparable chronic rotator cuff tear, right shoulder. SUBJECTIVE: The patient states she still has some discomfort. OBJECTIVE: Today, the knee is looking better, but she does have a hematoma along the medial aspect of her left thigh. This is a moderate hematoma. There is no evidence of infection. Eschars are noted. Moderate bruising and discoloration around the medial aspect of the thigh is noted. ASSESSMENT: As above. PLAN: We reiterated importance of warm soapy soaks to help these eschars heal and to reduce any chance of infection. We will continue to monitor progress in physical therapy. /[id number] NIKHIL/TERRELL
[2017-04-12] MEDS: Magnesium Hydroxide 400 MG/5 ML Susp 30 ML Cup PO PRN (20:50)
[2017-04-12] MEDS: Enoxaparin 40 MG/0.4 ML Syringe SUBCUT SCH (20:50)
[2017-04-12] MEDS: traMADol 50 MG Tab PO PRN (20:50)
[2017-04-13] MEDS: Ferrous Sulfate 325 MG Tab PO SCH ×2 (08:04→17:16)
[2017-04-13] MEDS: Calcium Carbonate/Vitamin D3 1250 MG-200 Unit Tab PO SCH (08:04)
[2017-04-13] MEDS: traMADol 50 MG Tab PO PRN ×3 (08:04→23:52)
[2017-04-13] MEDS: Cholecalciferol (Vitamin D3) 1,000 Unit Tab PO SCH (08:05)
[2017-04-13] MEDS: Folic Acid 0.8 MG Tab PO SCH (08:05)
[2017-04-13] MEDS: Docusate Sodium 100 MG Cap PO SCH ×2 (08:05→20:44)
[2017-04-13] MEDS: Multivitamin, Childrens Tab.Chew PO SCH (08:05)
[2017-04-13] MEDS: predniSONE 5 MG Tab PO SCH (08:05)
[2017-04-13] MEDS: Enoxaparin 40 MG/0.4 ML Syringe SUBCUT SCH (20:44)
[2017-04-14] MEDS: Methotrexate 2.5 MG Tab PO SCH ×2 (08:55→18:07)
[2017-04-14] MEDS: Ferrous Sulfate 325 MG Tab PO SCH ×2 (08:55→18:07)
[2017-04-14] MEDS: Multivitamin, Childrens Tab.Chew PO SCH (08:56)
[2017-04-14] MEDS: predniSONE 5 MG Tab PO SCH (08:56)
[2017-04-14] MEDS: Cholecalciferol (Vitamin D3) 1,000 Unit Tab PO SCH (08:56)
[2017-04-14] MEDS: Folic Acid 0.8 MG Tab PO SCH (08:56)
[2017-04-14] MEDS: Calcium Carbonate/Vitamin D3 1250 MG-200 Unit Tab PO SCH (08:56)
[2017-04-14] MEDS: Docusate Sodium 100 MG Cap PO SCH (09:00)
[2017-04-14] MEDS: traMADol 50 MG Tab PO PRN ×3 (09:01→21:06)
[2017-04-14] MEDS ORDERED: Docusate Sodium 100 MG Cap PO PRN (10:14)
[2017-04-14] MEDS: Enoxaparin 40 MG/0.4 ML Syringe SUBCUT SCH (21:02)
[2017-04-15] MEDS: Acetaminophen/Codeine 300-30 MG Tab PO PRN (03:39)
[2017-04-15] MEDS: traMADol 50 MG Tab PO PRN ×2 (03:43→09:44)
[2017-04-15 07:37] VITALS: BP 102/64
--- NOTE | 2017-04-15 07:37 | PCM.PN ---
- General Info Date of Service: 04/15/17 Admission Dx/Problem (Free Text): Patient doing well. She says as she takes the tramadol amazes her knee is relatively comfortable. She will be going home today with PT/OT/home health. - Patient Data Vitals - Most Recent: Last Vital Signs Temp 97.9 F 04/14/17 08:00 Pulse 79 04/14/17 08:00 Resp 18 04/14/17 08:00 BP 97/61 04/14/17 08:00 Pulse Ox 95 04/14/17 08:00 Weight - Most Recent: 104 lb 9.6 oz Med Orders - Current: Current Medications Acetaminophen/Codeine Phosphate (Tylenol With Codeine No.3 300mg/30mg) 2 tab PO Q6H PRN PRN Reason: Pain Last Admin: 04/12/17 15:01 Dose: 2 tab Calcium Carbonate (Calcium Carbonate/Vitamin D 1250 Mg-200 Unit) 1 tab PO DAILY [facility] Last Admin: 04/14/17 08:56 Dose: 1 tab Cholecalciferol (Vitamin D3) 1,000 units PO DAILY [facility] Last Admin: 04/14/17 08:56 Dose: 1,000 units Docusate Sodium (Colace) 100 mg PO BID PRN PRN Reason: Constipation Enoxaparin Sodium (Lovenox) 40 mg SUBCUT DAILY@2100 [facility] Last Admin: 04/14/17 21:02 Dose: 40 mg Ferrous Sulfate (Ferrous Sulfate) 325 mg PO BIDMEALS [facility] Last Admin: 04/14/17 18:07 Dose: 325 mg Folic Acid (Folic Acid) 0.8 mg PO DAILY [facility] Last Admin: 04/14/17 08:56 Dose: 0.8 mg Magnesium Hydroxide (Milk Of Magnesia) 30 ml PO DAILY PRN PRN Reason: Constipation Last Admin: 04/12/17 20:50 Dose: 30 ml Methotrexate (Methotrexate) 10 mg PO WE@18 [facility] Last Admin: 04/14/17 18:07 Dose: 10 mg Multivitamins/Minerals/Vitamin C (Childrens Chewable Vitamin) 2 tab PO DAILY [facility] Last Admin: 04/14/17 08:56 Dose: 2 tab Prednisone (Prednisone) 5 mg PO DAILY [facility] Last Admin: 04/14/17 08:56 Dose: 5 mg Tramadol HCl (Ultram) 50 mg PO Q6H PRN PRN Reason: Pain Last Admin: 04/15/17 03:43 Dose: 50 mg Discontinued Medications Acetaminophen/Codeine Phosphate (Tylenol With Codeine No.3 300mg/30mg) 1 tab PO Q6H PRN PRN Reason: Pain Hydrocodone Bitart/Acetaminophen ([place] 325-5 Mg) 1 tab PO Q4H PRN PRN Reason: Breakthrough Pain Last Admin: 04/02/17 09:30 Dose: 1 tab Docusate Sodium (Colace) 100 mg PO BID [facility] Last Admin: 04/14/17 09:00 Dose: Not Given Fentanyl (Duragesic) 12 mcg TRDERM Q72H [facility] Stop: 04/08/17 06:00 Last Admin: 04/05/17 12:58 Dose: 12 mcg Miscellaneous Information (Remove Patch) 1 ea TRDERM ONETIME ONE Stop: 04/08/17 06:01 Last Admin: 04/08/17 05:54 Dose: 1 ea Non-Formulary Medication (Glucosamine & Chonroitin Chewable) 2 tab PO DAILY [facility] Last Admin: 04/02/17 09:32 Dose: Not Given - Exam General: Alert, Oriented Extremities: Other (Left knee less swelling. She has ecchymosis around it and above it.) - Problem List & Annotations (1) Contusion of left knee SNOMED Code(s): 35962927, 996022465 Code(s): S80.02XA - CONTUSION OF LEFT KNEE, INITIAL ENCOUNTER Status: Acute Current Visit: Yes (2) Hematoma SNOMED Code(s): 261891645 Code(s): T14.8 - OTHER INJURY OF UNSPECIFIED BODY REGION Status: Acute Current Visit: Yes (3) Anemia SNOMED Code(s): 964772548 Code(s): D64.9 - ANEMIA, UNSPECIFIED Status: Acute Current Visit: No Qualifiers: Other causes of anemia: acute posthemorrhagic - Problem List Review Problem List Initiated/Reviewed/Updated: Yes - My Orders Last 24 Hours: My Active Orders 04/14/17 10:14 Docusate Sodium [Colace] 100 mg PO BID PRN - Plan Plan:: 1. DC to home on home health, PT/OT. 2. Recheck with Dr. Chaidez in the hospital in 7-10 days.
--- NOTE | 2017-04-15 07:50 | PCM.DCSUM1 ---
Discharge Summary - Hospital Course Free Text/Narrative:: Hospital course-patient had rehabilitation and did really well. Her pain was not well-controlled on Tylenol No. 3 and we switch her to tramadol and that helped in combination with ice. She will be discharged with home health, PT/OT. Brief History: 76-year-old had a fall and hurt her left knee and had a hematoma possible fracture of the patella. Was admitted because she couldn't ambulate and had excruciating pain. And then was admitted to swing bed for rehabilitation. Dr. Chaidez orthopedic following. - Discharge Data Discharge Date: 04/15/17 Discharge Disposition: Home, W Home Health Agency Condition: Good - Discharge Diagnosis/Problem(s) (1) Contusion of left knee SNOMED Code(s): 72448283, 748744728 ICD Code: S80.02XA - CONTUSION OF LEFT KNEE, INITIAL ENCOUNTER Status: Acute Current Visit: Yes (2) Hematoma SNOMED Code(s): 205272675 ICD Code: T14.8 - OTHER INJURY OF UNSPECIFIED BODY REGION Status: Acute Current Visit: Yes (3) Anemia SNOMED Code(s): 152819377 ICD Code: D64.9 - ANEMIA, UNSPECIFIED Status: Acute Current Visit: No Qualifiers: Other causes of anemia: acute posthemorrhagic - Patient Summary/Data Consults: Consultations 04/01/17 09:48 OT Evaluation and Treatment [CONS] Routine Please Evaluate and Treat. OT Reason for Consult: Discharge Planning This query below is only for informational purposes and is not editable. PT Evaluation and Treatment [CONS] Routine Please Evaluate and Treat. PT Reason for Consult: Ambulation This query below is only for informational purposes and is not editable. - Patient Instructions Diet: Heart Healthy Diet Activity: As Tolerated Driving: Do Not Drive Showering/Bathing: May Shower Notify Provider of: Fever, Increased Pain, Swelling and Redness, Drainage Other/Special Instructions: 1. Recheck with Dr. Blandon and Dr. Chaidez 7-10 days. - Discharge Plan Prescriptions/Med Rec: traMADol [Ultram] 50 mg PO Q6H PRN #90 tablet PRN Reason: Pain Home Medications: Home Meds Folic Acid 800 mcg PO DAILY 05/19/16 [History] Glucosamine & Chonroitin Chewable 2 tab PO DAILY 05/19/16 [History] predniSONE [Prednisone] 5 mg PO DAILY 05/19/16 [History] EPINEPHrine [Epipen] 0.3 mg IM ONETIME PRN 06/28/16 [History] Calcium Carb/Vitamin D3/Vit K1 [Viactiv Soft Chew] 1 tab PO DAILY 03/29/17 [ History] Cholecalciferol (Vitamin D3) [Vitamin D3] 1,000 unit PO DAILY 03/29/17 [History] Methotrexate 10 mg PO WE@18 03/29/17 [History] Multivitamin [Multivitamins] 2 tab PO DAILY 03/29/17 [History] Acetaminophen/HYDROcodone [[place] 325-5 MG] 1 tab PO Q4H PRN #30 tab 04/01/17 [Rx ] traMADol [Ultram] 50 mg PO Q6H PRN #90 tablet 04/15/17 [Rx] - Discharge Summary/Plan Comment DC Time >30 min.: No - Patient Data Vitals - Most Recent: Last Vital Signs Temp 98.9 F 04/15/17 07:35 Pulse 85 04/15/17 07:35 Resp 16 04/15/17 07:35 BP 102/64 04/15/17 07:35 Pulse Ox 95 04/15/17 07:35 Weight - Most Recent: 104 lb 9.6 oz Med Orders - Current: Current Medications Acetaminophen/Codeine Phosphate (Tylenol With Codeine No.3 300mg/30mg) 2 tab PO Q6H PRN PRN Reason: Pain Last Admin: 04/12/17 15:01 Dose: 2 tab Calcium Carbonate (Calcium Carbonate/Vitamin D 1250 Mg-200 Unit) 1 tab PO DAILY [facility] Last Admin: 04/14/17 08:56 Dose: 1 tab Cholecalciferol (Vitamin D3) 1,000 units PO DAILY [facility] Last Admin: 04/14/17 08:56 Dose: 1,000 units Docusate Sodium (Colace) 100 mg PO BID PRN PRN Reason: Constipation Enoxaparin Sodium (Lovenox) 40 mg SUBCUT DAILY@2100 [facility] Last Admin: 04/14/17 21:02 Dose: 40 mg Ferrous Sulfate (Ferrous Sulfate) 325 mg PO BIDMEALS [facility] Last Admin: 04/14/17 18:07 Dose: 325 mg Folic Acid (Folic Acid) 0.8 mg PO DAILY [facility] Last Admin: 04/14/17 08:56 Dose: 0.8 mg Magnesium Hydroxide (Milk Of Magnesia) 30 ml PO DAILY PRN PRN Reason: Constipation Last Admin: 04/12/17 20:50 Dose: 30 ml Methotrexate (Methotrexate) 10 mg PO WE@08,18 [facility] Last Admin: 04/14/17 18:07 Dose: 10 mg Multivitamins/Minerals/Vitamin C (Childrens Chewable Vitamin) 2 tab PO DAILY [facility] Last Admin: 04/14/17 08:56 Dose: 2 tab Prednisone (Prednisone) 5 mg PO DAILY [facility] Last Admin: 04/14/17 08:56 Dose: 5 mg Tramadol HCl (Ultram) 50 mg PO Q6H PRN PRN Reason: Pain Last Admin: 04/15/17 03:43 Dose: 50 mg Discontinued Medications Acetaminophen/Codeine Phosphate (Tylenol With Codeine No.3 300mg/30mg) 1 tab PO Q6H PRN PRN Reason: Pain Hydrocodone Bitart/Acetaminophen ([place] 325-5 Mg) 1 tab PO Q4H PRN PRN Reason: Breakthrough Pain Last Admin: 04/02/17 09:30 Dose: 1 tab Docusate Sodium (Colace) 100 mg PO BID [facility] Last Admin: 04/14/17 09:00 Dose: Not Given Fentanyl (Duragesic) 12 mcg TRDERM Q72H [facility] Stop: 04/08/17 06:00 Last Admin: 04/05/17 12:58 Dose: 12 mcg Miscellaneous Information (Remove Patch) 1 ea TRDERM ONETIME ONE Stop: 04/08/17 06:01 Last Admin: 04/08/17 05:54 Dose: 1 ea Non-Formulary Medication (Glucosamine & Chonroitin Chewable) 2 tab PO DAILY [facility] Last Admin: 04/02/17 09:32 Dose: Not Given *Q Meaningful Use (DIS) - VTE *Q VTE Criteria *Q: - Stroke *Q Stroke Criteria *Q: - AMI *Q AMI Criteria *Q:
[2017-04-15] MEDS: Ferrous Sulfate 325 MG Tab PO SCH (08:23)
[2017-04-15] MEDS: Folic Acid 0.8 MG Tab PO SCH (08:24)
[2017-04-15] MEDS: predniSONE 5 MG Tab PO SCH (08:24)
[2017-04-15] MEDS: Calcium Carbonate/Vitamin D3 1250 MG-200 Unit Tab PO SCH (08:24)
[2017-04-15] MEDS: Multivitamin, Childrens Tab.Chew PO SCH (08:24)
[2017-04-15] MEDS: Cholecalciferol (Vitamin D3) 1,000 Unit Tab PO SCH (08:24)
== END 2017-04-15 16:00 | disposition home health service (06) | DRG 554 ==
LOC: FB.MS 09:24
PROVIDERS: ADMIT Family Medicine; ATTEND Family Medicine
DX: M25.062 Hemarthrosis, left knee (principal); D50.0 Iron deficiency anemia secondary to blood loss (chronic); S80.02XD Contusion of left knee, subsequent encounter; Z51.5 Encounter for palliative care; Z86.711 Personal history of pulmonary embolism; G72.89 Other specified myopathies; S83.242D Other tear of medial meniscus, current injury, left knee, subsequent encounter; M75.121 Complete rotator cuff tear or rupture of right shoulder, not specified as traumatic
CPT/HCPCS: 36415; 80048; 82550; 85014; 85018; 85025; 85045; 97110-GP; 97116-GP; 97161-GP; 97530-GO; 97530-GO-KX; 97530-GP; 97535-GO; A9270-GY; J1650; J8610

== ENCOUNTER 2017-04-26 14:05 | Inpatient (IN) | payer MEDICARE, OTHER ==
[2017-04-26] MEDS ORDERED: Lactated Ringers 1,000 ML IV SCH (14:30)
[2017-04-26] MEDS ORDERED: ceFAZolin 1 GM Vial IM ONE (14:33)
--- NOTE | 2017-04-26 14:35 | EDM.PDOC ---
ED HPI GENERAL MEDICAL PROBLEM - General Chief Complaint: Laceration Stated Complaint: RT LEG Time Seen by Provider: 04/26/17 14:20 Source of Information: Reports: Patient, Old Records History Limitations: Reports: No Limitations - History of Present Illness INITIAL COMMENTS - FREE TEXT/NARRATIVE: 76 yo female was walking with a walker with her therapist today and fell in her driveway incurring a large wound to the distal, anterior L thigh. Here for eval and repair. Tetanus is UTD. Onset: Today Onset Date: 04/26/17 Onset Time: 13:55 Duration: Minutes:, Constant Location: Reports: Lower Extremity, Left Quality: Reports: Burning Severity: Severe Improves with: Reports: Rest Worsens with: Reports: Movement Context: Reports: Trauma Associated Symptoms: Reports: Weakness (chronic) Treatments HEAD NURSE: Reports: Other (see below) (none) left knee Pain Score (Numeric/FACES): 5 - Related Data Allergies Allergy/AdvReac Type Severity Reaction Status Date / Time ketorolac [From Toradol] Allergy Hives Verified 04/26/17 14:20 Bee Stings Allergy Hives Uncoded 04/26/17 14:20 Home Meds: Home Meds Folic Acid 800 mcg PO DAILY 05/19/16 [History] Glucosamine & Chonroitin Chewable 2 tab PO DAILY 05/19/16 [History] predniSONE [Prednisone] 5 mg PO DAILY 05/19/16 [History] EPINEPHrine [Epipen] 0.3 mg IM ONETIME PRN 06/28/16 [History] Calcium Carb/Vitamin D3/Vit K1 [Viactiv Soft Chew] 1 tab PO DAILY 03/29/17 [ History] Cholecalciferol (Vitamin D3) [Vitamin D3] 1,000 unit PO DAILY 03/29/17 [History] Methotrexate 10 mg PO WE@,18 03/29/17 [History] Multivitamin [Multivitamins] 2 tab PO DAILY 03/29/17 [History] Acetaminophen/HYDROcodone [[place] 325-5 MG] 1 tab PO Q4H PRN #30 tab 04/01/17 [Rx ] traMADol [Ultram] 50 mg PO Q6H PRN #90 tablet 04/15/17 [Rx] Past Medical History HEENT History: Reports: Impaired Vision Cardiovascular History: Reports: Other (See Below) Other Cardiovascular History: June 2016: Presently has blood clot between toes on right foot. 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 Genitourinary History: Reports: None HEALTHCARE LIAISON History: Reports: , Other (See Below) Other OB/BYN History: Total hysterectomy. Musculoskeletal History: Reports: Other (See Below) Other Musculoskeletal History: IBM - Past Surgical History GI Surgical History: Reports: Appendectomy, Colonoscopy, EGD, Esophageal Dilatation Female Surgical History: Reports: Hysterectomy, Salpingo-Oophorectomy Musculoskeletal Surgical History: Reports: Hip Replacement Social & Family History - Family History Family Medical History: Noncontributory Cardiac: Reports: CAD Neurological: Reports: CVA Oncologic: Reports: Breast, Colon - Tobacco Use Smoking Status *Q: Never Smoker Second Hand Smoke Exposure: No - Caffeine Use Caffeine Use: Reports: Coffee Other Caffeine Use: 8 cups per day Caffeine Use Comment: 8 cups per day - Recreational Drug Use Recreational Drug Use: No ED ROS GENERAL - Review of Systems Review Of Systems: See Below Constitutional: Reports: No Symptoms HEENT: Reports: No Symptoms Respiratory: Reports: No Symptoms Cardiovascular: Reports: No Symptoms GI/Abdominal: Reports: No Symptoms : Reports: No Symptoms Musculoskeletal: Reports: Other (generalized chronic weakness.) Skin: Reports: Wound (Large, deep laceration into muscle transversely across the distal thigh on the left. ) Neurological: Reports: No Symptoms Psychiatric: Reports: No Symptoms ED EXAM, SKIN/RASH Exam: See Below Exam Limited By: No Limitations General Appearance: Alert, No Apparent Distress, Thin Eye Exam: Bilateral Eye: Normal Inspection Ears: Normal External Exam, Normal Canal, Hearing Grossly Normal, Normal TMs Nose: Normal Inspection, Normal Mucosa, No Blood Throat/Mouth: Normal Inspection, Normal Lips, Normal Voice, No Airway Compromise Head: Atraumatic, Normocephalic Neck: Normal Inspection, Supple, Non-Tender Respiratory/Chest: No Respiratory Distress, Lungs Clear, No Accessory Muscle Use Cardiovascular: Regular Rate, Rhythm, No Edema Extremities: Normal Range of Motion, No Pedal Edema Neurological: Alert, Oriented, CN II-XII Intact, Normal Cognition, No Motor/ Sensory Deficits Psychiatric: Normal Affect, Normal Mood Skin: Warm, Dry, Normal Color, No Rash, Wound/Incision (Large, deep transverse laceration of the distal L thigh that extends into muscle. Clotted blood present. No current bleeding. Length of wound approx. 14 cm and width approx. 4 cm.) Location, Skin: Lower Extremity, Left Characteristics: Linear Lymphatic: No Adenopathy Course - Vital Signs Text/Narrative:: IV of LR at 150 ml/h, Ancef 1 gm IV L knee X-ray-no fx L femur X-ray-no fx Dr. Chaidez consulted, to take to the OR for repair. Last Recorded V/S: Last Vital Signs Temp 36.6 C 04/26/17 14:05 Pulse 82 04/26/17 14:05 Resp 17 04/26/17 14:05 BP 121/69 04/26/17 14:05 Pulse Ox 99 04/26/17 14:05 - Orders/Labs/Meds Orders: Active Orders 24 hr Category Date Time Status Femur Min 2V Lt [CR] Stat Exams 04/26/17 15:01 Taken Lactated Ringers [Ringers, Lactated] 1,000 ml Med 04/26/17 14:30 Active IV ASDIRECTED Medication Orders Lactated Ringer's (Ringers, Lactated) 1,000 mls @ 150 mls/hr IV ASDIRECTED EWA Last Admin: 04/26/17 14:51 Dose: 150 mls/hr Meds: Medications Generic Name Dose Route Start Last Admin Trade Name Freq PRN Reason Stop Dose Admin Lactated Ringer's 1,000 mls @ 150 mls/hr 04/26/17 14:30 04/26/17 14:51 Ringers, Lactated IV 150 mls/hr ASDIRECTED EWA Administration Discontinued Medications Generic Name Dose Route Start Last Admin Trade Name Freq PRN Reason Stop Dose Admin Cefazolin Sodium 1 gm 04/26/17 14:33 04/26/17 15:02 Ancef IM 04/26/17 14:34 Not Given ONETIME ONE Cefazolin Sodium 1 gm/ Sodium 50 mls @ 200 mls/hr 04/26/17 14:55 04/26/17 15: 07 Chloride IV 04/26/17 15:09 200 mls/hr ONETIME ONE Administration Departure - Departure Time of Disposition: 15:35 Disposition: Admitted As Inpatient 65 Condition: Fair Clinical Impression: Laceration of thigh, left, complicated Qualifiers: Encounter type: initial encounter Qualified Code(s): S71.112A - Laceration without foreign body, left thigh, initial encounter - Discharge Information Forms: ED Department Discharge - My Orders Last 24 Hours: My Active Orders 04/26/17 14:30 Lactated Ringers [Ringers, Lactated] 1,000 ml IV ASDIRECTED 04/26/17 15:01 Femur Min 2V Lt [CR] Stat - Assessment/Plan Last 24 Hours: My Active Orders 04/26/17 14:30 Lactated Ringers [Ringers, Lactated] 1,000 ml IV ASDIRECTED 04/26/17 15:01 Femur Min 2V Lt [CR] Stat
[2017-04-26] MEDS ORDERED: ceFAZolin 1 GM in Sodium Chloride 0.9% 50 ML IV ONE (14:55)
[2017-04-26] MEDS ORDERED: Hydrocortisone Sodium Succinate 100 MG/2 ML SDV IV ONE (16:00)
[2017-04-26] MEDS ORDERED: fentaNYL 100 MCG/2 ML SDV IV ONE (16:00)
[2017-04-26] MEDS ORDERED: Propofol 200 MG/20 ML SDV IV ONE (16:00)
[2017-04-26] MEDS ORDERED: Lactated Ringers 1,000 ML IV ONE (16:00)
[2017-04-26] MEDS ORDERED: Midazolam 1 MG/ML 2 ML SDV IV ONE (16:00)
[2017-04-26] MEDS ORDERED: Docusate Sodium 100 MG Cap PO PRN (16:12)
--- NOTE | 2017-04-26 16:14 | CR ---
INDICATION: Injury. LEFT FEMUR: Three views of the femur were obtained and revealed evidence of a joint effusion. Severe soft tissue injury is noted anteriorly at the level of the distal shaft of the femur. A definite fracture or dislocation was not identified. Mild degenerative changes are noted at the patellofemoral joint. Mild hypertrophic change is also noted at the medial intercondylar spine. IMPRESSION: 1. Marked soft tissue injury anteriorly and apparently extending medially at the level of the distal shaft of the femur. 2. Mild osteoarthritis. 3. No acute fracture or dislocation. MTDD
[2017-04-26] MEDS: Sodium Chloride 0.9% 250 ML IV SCH (18:45)
[2017-04-26] MEDS: cefTRIAXone 1,000 MG in Sodium Chloride 0.9% 50 ML IV SCH (18:45)
[2017-04-26] MEDS: traMADol 50 MG Tab PO PRN (20:20)
--- NOTE | 2017-04-26 22:03 | CONS ---
DATE OF CONSULTATION: 04/26/2017 PROBLEM: Large laceration, suprapatellar area, left knee. 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 The patient has a history of falling and was recently discharged for similar problem to the left knee approximately 12 days ago. She was hospitalized here 18 days for a fall where she sustained a hematoma to the left knee as well as numerous abrasions around the knee. The patient was discharged from the hospital and was working outside with the physical therapist walking when she fell and landed directly on her left knee. She had pain, bleeding, and a large laceration and therefore was transferred to [facility] via ambulance. The patient was evaluated by Dr. Fahad Angulo and consult for Orthopedics was made. In visiting with the patient today, she denies hitting her head or losing consciousness. She denies any pain except for superficially around her knee. She denies any hip pain. She is able to flex her knee without discomfort to about 75 degrees. Keeping her leg stiff and straight she can do a straight leg raise test. The patient moves her toes well and has good sensation. In viewing the laceration today, it appears to be about 10 to 11 inch laceration superior and then going slightly inferior upon the medial femoral condyle. This large laceration having occurred outside I feel should be treated in the operating room with thorough irrigation, debridement, and closure with insertion of a drain and then admission for observation for possible infection. The patient and her son understand the risks, complications, prognosis, expectations, and the postoperative course. The patient is not very happy about being hospitalized and wants to go home, but this large laceration should be monitored for healing properly and possible infection. The patient last ate at 1130 hours. /[id number] NIKHIL/TERRELL ADORNO
--- NOTE | 2017-04-26 23:43 | OR ---
DATE OF OPERATION: 04/26/2017 SURGEON: Luis Chaidez MD PREOPERATIVE DIAGNOSES: 1. Large laceration, left knee, distal femur. 2. Large preop hematoma from previous injury. POSTOPERATIVE DIAGNOSES: 1. Large laceration, left knee, distal femur. 2. Large preop hematoma from previous injury. PROCEDURE PERFORMED: Irrigation and debridement of laceration with evacuation of hematoma. Lacerations were 4 inches in length and approximately 6 inches in length. INDICATION: This pleasant lady had been in the hospital approximately 12 days ago with a bad bruise to her knee and secondary hematoma in the thigh. She has polymyositis, which makes it difficult for her to have good quad strength. She slipped and fell outside while walking with physical therapist and sustained a large laceration. Prior to surgery, I talked with the patient as well as her son and they understand the risks, complications, prognosis, expectations, and the postoperative course. The concern is with healing of this tissue since she only weighs 99 pounds and is 76 years of age and lacerated an area where she had contused her distal thigh with a large hematoma previously. They agreed to have us proceed with irrigation, debridement, and evacuation of hematoma and admission. DESCRIPTION OF PROCEDURE: The patient was taken to the operating room and placed on the operating room table in a supine position. Prior to her arrival, she did receive 1 g of Ancef in the emergency room. The patient did not have a tourniquet placed around the left thigh because of the condition of the skin from her previous injury and would have interfered with the hematoma itself. The patient prior to being placed in the supine position had a spinal anesthetic administered and Solu-Medrol 100 mg was given per Anesthesia request. The patient was on preoperative cortisone and we felt that it would be prudent in this traumatic situation to make sure her cortisol levels were adequate. After the patient was in the supine position after the sterile technique utilized to administer a spinal anesthetic, she had a sterile ChloraPrep performed from the mid proximal thigh down to the tip of the toes. Sterile draping procedure was then carried out. The patient had 2 areas of skin necrosis that actually had a large eschar about the size of a 50 cent piece of silver dollar in 2 areas. Both of these had basically come off during the fall and exposed a large hole underneath. Extruding through the large openings was hematoma. With the use of 2000 mL of sterile normal saline with bacitracin, we liberally irrigated and removed all the hematoma. We then closed the skin incisions and all areas were closed without any significant difficulty. The some of the areas of the skin were a little questionable from her previous injury. A Hemovac drain was inserted. Following the closure of the open lacerations and debridement, we placed her in a well-padded posterior splint. ESTIMATED BLOOD LOSS: Approximately 10 mL with removal of approximately one pint of hematoma from her prior injury sustained approximately 3 weeks ago. COMPLICATIONS: None. /[id number] NIKHIL/TERRELL
[2017-04-27] MEDS: traMADol 50 MG Tab PO PRN ×4 (00:27→14:25)
[2017-04-27] MEDS: Lactated Ringers 1,000 ML IV SCH ×2 (00:38→08:43)
[2017-04-27] MEDS ORDERED: traMADol 50 MG Tab PO PRN (12:04)
--- NOTE | 2017-04-27 13:36 | PN ---
DATE SEEN: 04/27/2017 PROBLEMS: 1. Laceration, left knee. 2. Status post contusion and hematoma, left knee, 3 weeks. SUBJECTIVE: The patient states that she is having some moderate pain at times. She would like a little increase in her tramadol. She denies any chest pain or shortness of breath. OBJECTIVE: Today, vital signs are reviewed and they are stable. She is moving her toes well. She has no pain in the resting position. Minimal output in the drain. LABORATORY DATA: The patient has no significant abnormalities in the lab work. ASSESSMENT: As above, doing well. PLAN: 1. Continue Rocephin. 2. Increase tramadol to 100 mg every 6 hours. 3. Continue with ice, that gives her comfort, as needed. 4. Removal of Santiago catheter today. 5. The patient may go from bed to commode with assistance and weightbearing as tolerated. /[id number] NIKHIL/TERRELL
[2017-04-27] MEDS: cefTRIAXone 1,000 MG in Sodium Chloride 0.9% 50 ML IV SCH (16:12)
[2017-04-27] MEDS: Sodium Chloride 0.9% 250 ML IV SCH (16:12)
[2017-04-28] MEDS: traMADol 50 MG Tab PO PRN (02:14)
--- NOTE | 2017-04-28 08:56 | PCM.HP ---
H&P History of Present Illness - General Date of Service: 04/28/17 Admit Problem/Dx: Admission Diagnosis/Problem Admission Diagnosis/Problem Laceration of left lower extremity Source of Information: Patient History Limitations: Reports: No Limitations - History of Present Illness Initial Comments - Free Text/Narative: Tory 76-year-old female brought in because of a laceration to the left knee area. She was undergoing physical therapy at home 2 days ago when she fell landing on the knee was brought to the ER. Dr. Chaidez to go to the OR where he repaired the knee drained a large hematoma with a drain She is now being admitted for physical strengthening pain control and I ve been consulted to help with medical management of chronic medical problems. This morning she has no complaints of pain except on movement of left knee,or weight bearing.Denies any chest pain or shortness of breath or fever. She has a history of IBM, stable , a recent admission for Knee hemarthrosis of the left knee,and anemia. left knee Pain Score (Numeric/FACES): 5 - Related Data Allergies/Adverse Reactions: Allergies Allergy/AdvReac Type Severity Reaction Status Date / Time ketorolac [From Toradol] Allergy Hives Verified 04/26/17 14:20 Bee Stings Allergy Hives Uncoded 04/26/17 14:20 Home Medications: Home Meds Folic Acid 800 mcg PO DAILY 05/19/16 [History] Glucosamine & Chonroitin Chewable 2 tab PO DAILY 05/19/16 [History] predniSONE [Prednisone] 5 mg PO DAILY 05/19/16 [History] EPINEPHrine [Epipen] 0.3 mg IM ONETIME PRN 06/28/16 [History] Calcium Carb/Vitamin D3/Vit K1 [Viactiv Soft Chew] 1 tab PO DAILY 03/29/17 [ History] Cholecalciferol (Vitamin D3) [Vitamin D3] 1,000 unit PO DAILY 03/29/17 [History] Methotrexate 10 mg PO WE@,18 03/29/17 [History] Multivitamin [Multivitamins] 2 tab PO DAILY 03/29/17 [History] Acetaminophen/HYDROcodone [[place]obb 325-5 MG] 1 tab PO Q4H PRN #30 tab 04/01/17 [Rx ] Iron 18 mg PO DAILY 04/26/17 [History] Iron Bis-Gly/FA/C/B12/Ca/Succ [Iron / Tablet] 1 each PO DAILY 04/26/17 [ History] Past Medical History HEENT History: Reports: Impaired Vision Cardiovascular History: Reports: Other (See Below) Other Cardiovascular History: June 2016: Presently has blood clot between toes on right foot. 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 Musculoskeletal History: Reports: Other (See Below) Other Musculoskeletal History: IBM - Past Surgical History GI Surgical History: Reports: Appendectomy, Colonoscopy, EGD, Esophageal Dilatation Female Surgical History: Reports: Hysterectomy, Salpingo-Oophorectomy Musculoskeletal Surgical History: Reports: Hip Replacement Social & Family History - Family History Family Medical History: Noncontributory Cardiac: Reports: CAD Neurological: Reports: CVA Oncologic: Reports: Breast, Colon - Tobacco Use Smoking Status *Q: Never Smoker Second Hand Smoke Exposure: No - Caffeine Use Caffeine Use: Reports: Coffee Other Caffeine Use: 8 cups per day Caffeine Use Comment: 8 cups per day - Recreational Drug Use Recreational Drug Use: No H&P Review of Systems - Review of Systems: Review Of Systems: ROS reveals no pertinent complaints other than HPI. Exam - Exam Exam: See Below - Vital Signs Vital Signs: Last Vital Signs Temp 98.6 F 04/28/17 02:05 Pulse 84 04/28/17 02:05 Resp 18 04/28/17 02:05 BP 122/58 L 04/28/17 02:05 Pulse Ox 93 L 04/28/17 02:05 Weight: 43.998 kg - Exam General: Alert, Oriented, 4 HEENT: PERRLA, Hearing Intact, Mucosa Moist & Lindsey, Nares Patent, Normal Nasal Septum, Posterior Pharynx Clear, Conjunctiva Clear, EOMI, EACs Clear, TMs Clear Neck: Supple, Trachea Midline, 2 Lungs: Clear to Auscultation, Normal Respiratory Effort Cardiovascular: Regular Rate, Regular Rhythm GI/Abdominal Exam: Normal Bowel Sounds, Soft, Non-Tender, No Organomegaly, No Distention, No Abnormal Bruit, No Mass, Pelvis Stable (Female) Exam: Deferred Rectal (Female) Exam: Deferred Back Exam: Normal Inspection, Full Range of Motion, NT Extremities: Normal Inspection, Normal Range of Motion, Non-Tender, No Pedal Edema, Normal Capillary Refill Skin: Warm, Dry, Intact Neurological: Cranial Nerves Intact, Reflexes Equal Bilateral Neuro Extensive - Mental Status: Alert, Oriented x3, Normal Mood/Affect, Normal Cognition Neuro Extensive - Motor, Sensory, Reflexes: CN II-XII Intact, Normal Gait, Normal Reflexes Psychiatric: Alert, Normal Affect, Normal Mood - Patient Data Result Diagrams: 04/27/17 06:25 04/27/17 06:25 *Q Meaningful Use (ADM) - VTE *Q VTE Criteria *Q: - Stroke *Q Stroke Criteria *Q: - AMI *Q AMI Criteria *Q: - Problem List (1) Laceration of thigh, left, complicated SNOMED Code(s): 98441539 ICD Code: S71.112A - LACERATION WITHOUT FOREIGN BODY, LEFT THIGH, INIT ENCNTR Status: Acute Current Visit: Yes Qualifiers: Encounter type: initial encounter Qualified Code(s): S71.112A - Laceration without foreign body, left thigh, initial encounter (2) Anemia SNOMED Code(s): 383211591 ICD Code: D64.9 - ANEMIA, UNSPECIFIED Status: Acute Current Visit: No Qualifiers: Other causes of anemia: acute posthemorrhagic (3) H/O venous thrombosis and embolism SNOMED Code(s): 805089391, 665462793 ICD Code: Z86.718 - PERSONAL HISTORY OF OTHER VENOUS THROMBOSIS AND EMBOLISM Status: Chronic Current Visit: No (4) IBM (inclusion body myositis) SNOMED Code(s): 86361652 ICD Code: G72.41 - INCLUSION BODY MYOSITIS [IBM] Status: Chronic Current Visit: No Problem List Initiated/Reviewed/Updated: Yes Orders Last 24hrs: Active Orders 24 hr Category Date Time Status Communication Order [RC] Per Unit Routine Care 04/27/17 12:51 Active Notify Provider Consults [RC] ASDIRECTED Care 04/27/17 15:28 Active Consult to Physician [CONS] Routine Cons 04/27/17 15:25 Ordered traMADol [Ultram] Med 04/27/17 12:27 Active 100 mg PO Q6H PRN Convert IV to Saline Lock [OM.PC] Routine Oth 04/27/17 12:51 Ordered Medication Orders Docusate Sodium (Colace) 100 mg PO BID PRN PRN Reason: Constipation Last Admin: 04/27/17 00:27 Dose: 100 mg Ceftriaxone Sodium 1,000 mg/ (Sodium Chloride) 50 mls @ 100 mls/hr IV Q24H [facility] Last Admin: 04/27/17 16:12 Dose: 100 mls/hr Admin: 04/26/17 18:45 Dose: 100 mls/hr Sodium Chloride (Normal Saline) 250 mls @ 100 mls/hr IV ASDIRECTED [facility] Last Admin: 04/27/17 16:12 Dose: 100 mls/hr Admin: 04/26/17 18:45 Dose: 100 mls/hr Tramadol HCl (Ultram) 100 mg PO Q6H PRN PRN Reason: PAIN Last Admin: 04/28/17 02:14 Dose: 100 mg Admin: 04/27/17 14:25 Dose: 100 mg Assessment/Plan Comment:: Continue current management as per Dr. Chaidez. I will resume her home medications.
[2017-04-28] MEDS ORDERED: CHONDROITIN PO SCH (09:00)
[2017-04-28] MEDS ORDERED: Multivitamin, Childrens Tab.Chew PO SCH (09:00)
[2017-04-28] MEDS ORDERED: GLUCOSAMINE PO SCH (09:00)
[2017-04-28] MEDS ORDERED: [UNRECOGNIZED DRUG - OTHER] PO SCH (09:00)
[2017-04-28] MEDS ORDERED: traMADol 50 MG Tab PO PRN ×2 (09:15)
[2017-04-28] MEDS: Methotrexate 2.5 MG Tab PO SCH ×2 (10:21→18:49)
[2017-04-28] MEDS: Folic Acid 0.8 MG Tab PO SCH (10:21)
[2017-04-28] MEDS: Calcium Carbonate/Vitamin D3 1250 MG-200 Unit Tab PO SCH (10:21)
[2017-04-28] MEDS: predniSONE 5 MG Tab PO SCH (10:22)
[2017-04-28] MEDS: Ferrous Sulfate 325 MG Tab PO SCH (10:22)
[2017-04-28] MEDS: Cholecalciferol (Vitamin D3) 1,000 Unit Tab PO SCH (10:22)
--- NOTE | 2017-04-28 14:48 | PN ---
DATE SEEN: 04/28/2017 PROBLEM: Status post laceration and evacuation of the previous hematoma from a contusion approximately 3 weeks prior to the emergency room presentation. SUBJECTIVE: The patient states she has some moderate pain. She denies any shortness of breath or chest pain. OBJECTIVE: Today, the patient's vital signs are stable. Her drain is removed and there is minimal output in the drain. The patient has lacerations that had been repaired and are healing well although there is one superior to the patella about 2 to 3 fingerbreadths where there is a flap of skin measuring approximately 4 inches x 2 inches that is very suspect of viability. There is no evidence of any localized infection. The swelling is not present. The drain is removed without difficulty. Area was cleansed with alcohol and redressed and splint applied. Since this area of tissue viability is a suspect, we will proceed with a wound VAC since there is still a little drainage from the incision sites and continue to monitor this very closely. The patient may need further surgery. We are also concerned about infection in this area. The patient will continue on Rocephin. /[id number] NIKHIL/TERRELL
[2017-04-28] MEDS ORDERED: Ondansetron 4 MG/2 ML SDV IVPUSH PRN (15:54)
[2017-04-28] MEDS: cefTRIAXone 1,000 MG in Sodium Chloride 0.9% 50 ML IV SCH (16:47)
[2017-04-28] MEDS ORDERED: Morphine 2 MG/ML Syringe IVPUSH PRN (17:10)
[2017-04-28] MEDS ORDERED: hydrOXYzine HCl 50 MG/ML SDV IM PRN (17:10)
[2017-04-29] MEDS: predniSONE 5 MG Tab PO SCH (08:36)
[2017-04-29] MEDS: Folic Acid 0.8 MG Tab PO SCH (08:36)
[2017-04-29] MEDS: Ferrous Sulfate 325 MG Tab PO SCH (08:36)
[2017-04-29] MEDS: Calcium Carbonate/Vitamin D3 1250 MG-200 Unit Tab PO SCH (08:36)
[2017-04-29] MEDS: Cholecalciferol (Vitamin D3) 1,000 Unit Tab PO SCH (08:37)
--- NOTE | 2017-04-29 10:16 | PN ---
DATE SEEN: 04/29/2017 REASON FOR VISIT: Laceration of the knee. SUBJECTIVE: This is a 76-year-old female who was admitted for repair of laceration, complex on the left knee area. She has had a hemarthrosis of that knee previously. Last night, she complained of nausea and inability to keep anything down, dry heaving. It was thought that maybe the tramadol might cause it. This was stopped in favor of morphine, which seems to have controlled her symptoms now. She slept well. REVIEW OF SYSTEMS: No chest pain. Denies any diarrhea. No shortness of breath. No fever. MEDICATIONS: Reviewed. ALLERGIES: Reviewed. OBJECTIVE: VITAL SIGNS: Blood pressure is normal. She is afebrile. ABDOMEN: Soft. MENTAL STATUS: Alert. EXTREMITIES: No edema. LABORATORY DATA: No new labs today. ASSESSMENT: 1. Complex laceration, left knee. 2. History of hemarthrosis. 3. History of IBM. 4. History of pulmonary embolism. PLAN: My plan is to continue p.r.n. morphine, advance her diet as tolerated, repeat a basic metabolic panel and CBC in the morning. Dr. Chaidez is directing her care regarding disposition. /[id number] FANTA/TERRELL
[2017-04-29] MEDS: cefTRIAXone 1,000 MG in Sodium Chloride 0.9% 50 ML IV SCH (16:27)
--- NOTE | 2017-04-29 19:08 | PN ---
DATE SEEN: 04/29/2017 PROBLEM: Multiple lacerations in superior aspect of the left knee, status post a previous fall with significant contusion, hematoma formation, approximately 1 month before admission this time. SUBJECTIVE: The patient is unchanged today. Appetite is slightly suppressed. She is having pain on a scale of 0 to 10 is about a 4 occasionally. She has been up in a chair and transfers well with assistance only. Since she has such weak quads, she needs assistance. OBJECTIVE: Today, her vital signs are stable and the incision appears to be making some progress. It has not completely delineated itself fully. We will continue with the wound VAC since there is still a small amount of drainage through the incision site. It is our expectation that we can reduce some of the swelling with the wound VAC and promote healing. I believe by Wednesday, we will have a better delineation of what tissue is viable and which is not. At this time, it is still a little early to tell with a 100% accuracy. We are trying to avoid any unnecessary surgery or any grafting that has to be done or muscle transfers to this area. /[id number] NIKHIL/TERRELL
--- NOTE | 2017-04-30 09:12 | PCM.PN ---
- General Info Date of Service: 04/30/17 Admission Dx/Problem (Free Text): Patient states that she still has trouble bearing weight on her left leg. It's covered right now. Dr. Chaidez checked yesterday. - Patient Data Vitals - Most Recent: Last Vital Signs Temp 98.0 F 04/29/17 23:47 Pulse 82 04/29/17 23:47 Resp 18 04/29/17 23:47 BP 132/76 04/29/17 23:47 Pulse Ox 95 04/29/17 23:47 Weight - Most Recent: 97 lb I&O - Last 24 Hours: Intake & Output 04/29/17 04/30/17 04/30/17 22:59 06:59 14:59 Intake Total 110 Balance 110 Lab Results Last 24 Hours: Laboratory Results - last 24 hr 04/30/17 04/30/17 Range/Units 06:45 06:45 WBC 7.5 (4.5-12.0) X10-3/uL RBC 4.05 (3.23-5.20) x10(6)uL Hgb 11.6 (11.5-15.5) g/dL Hct 35.5 (30.0-51.3) % MCV 87.7 (80-96) fL MCH 28.6 (27.7-33.6) pg MCHC 32.7 (32.2-35.4) g/dL RDW 19.5 H (11.5-15.5) % Plt Count 459 H (125-369) X10(3)uL MPV 6.6 L (7.4-10.4) fL Neut % (Auto) 71.3 (46-82) % Lymph % (Auto) 18.1 (13-37) % Tyrrell % (Auto) 8.3 (4-12) % Eos % (Auto) 2 (1.0-5.0) % Baso % (Auto) 1 (0-2) % Neut # (Auto) 5.4 (1.6-8.3) # Lymph # (Auto) 1.4 (0.6-5.0) # Tyrrell # (Auto) 0.6 (0.0-1.3) # Eos # (Auto) 0.1 (0.0-0.8) # Baso # (Auto) 0.0 (0.0-0.2) # Sodium 136 (135-145) mmol/L Potassium 3.1 L (3.5-5.3) mmol/L Chloride 100 (100-110) mmol/L Carbon Dioxide 25 (23-29) mmol/L BUN 8 (8-23) mg/dL Creatinine 0.3 L (0.6-1.3) mg/dL Est Cr Clr Drug Dosing 109.08 mL/min Estimated GFR (MDRD) > 60 (>60) BUN/Creatinine Ratio 26.7 H (9-20) Glucose 71 L (80-116) mg/dL Calcium 8.3 L (8.6-10.2) mg/dL Med Orders - Current: Current Medications Calcium Carbonate (Calcium Carbonate/Vitamin D 1250 Mg-200 Unit) 1 tab PO DAILY [facility] Last Admin: 04/29/17 08:36 Dose: 1 tab Cholecalciferol (Vitamin D3) 1,000 units PO DAILY [facility] Last Admin: 04/29/17 08:37 Dose: 1,000 units Docusate Sodium (Colace) 100 mg PO BID PRN PRN Reason: Constipation Last Admin: 04/27/17 00:27 Dose: 100 mg Ferrous Sulfate (Ferrous Sulfate) 325 mg PO DAILY [facility] Last Admin: 04/29/17 08:36 Dose: 325 mg Folic Acid (Folic Acid) 0.8 mg PO DAILY [facility] Last Admin: 04/29/17 08:36 Dose: 0.8 mg Hydroxyzine HCl (Vistaril) 50 mg IM Q6H PRN PRN Reason: Nausea Last Admin: 04/28/17 17:52 Dose: 50 mg Ceftriaxone Sodium 1,000 mg/ (Sodium Chloride) 50 mls @ 100 mls/hr IV Q24H [facility] Last Admin: 04/29/17 16:27 Dose: 100 mls/hr Sodium Chloride (Normal Saline) 250 mls @ 100 mls/hr IV ASDIRECTED [facility] Last Admin: 04/27/17 16:12 Dose: 100 mls/hr Methotrexate (Methotrexate) 10 mg PO WE@ [facility] Last Admin: 04/28/17 18:49 Dose: Not Given Morphine Sulfate (Morphine) 1 mg IVPUSH Q4H PRN PRN Reason: Breakthrough Pain Last Admin: 04/28/17 17:52 Dose: 1 mg Ondansetron HCl (Zofran) 4 mg IVPUSH Q6H PRN PRN Reason: Nausea/Vomiting Last Admin: 04/28/17 16:08 Dose: 4 mg Prednisone (Prednisone) 5 mg PO DAILY [facility] Last Admin: 04/29/17 08:36 Dose: 5 mg Tramadol HCl (Ultram) 100 mg PO TID PRN PRN Reason: PAIN Discontinued Medications Bacitracin (Bacitracin) 50,000 units .XX .STK-MED ONE Stop: 04/26/17 17:21 Last Admin: 04/26/17 17:20 Dose: 50,000 units Cefazolin Sodium (Ancef) 1 gm IM ONETIME ONE Stop: 04/26/17 14:34 Last Admin: 04/26/17 15:02 Dose: Not Given Fentanyl (Sublimaze) 100 mcg IV .STK-MED ONE Stop: 04/26/17 16:01 Hydrocortisone Sodium Succinate (Solu-Cortef) 100 mg IV .STK-MED ONE Stop: 04/26/17 16:01 Lactated Ringer's (Ringers, Lactated) 1,000 mls @ 150 mls/hr IV ASDIRECTED [facility] Stop: 04/27/17 00:18 Last Admin: 04/26/17 14:51 Dose: 150 mls/hr Cefazolin Sodium 1 gm/ Sodium (Chloride) 50 mls @ 200 mls/hr IV ONETIME ONE Stop: 04/26/17 15:09 Last Admin: 04/26/17 15:07 Dose: 200 mls/hr Lactated Ringer's (Ringers, Lactated) 1,000 mls @ 125 mls/hr IV ASDIRECTED [facility] Last Admin: 04/27/17 08:43 Dose: 125 mls/hr Lactated Ringer's (Ringers, Lactated) 1,000 mls @ as directed IV .STK-MED ONE Stop: 04/26/17 16:01 Midazolam HCl (Versed 1 Mg/Ml) 2 mg IV .STK-MED ONE Stop: 04/26/17 16:01 Multivitamins/Minerals/Vitamin C (Childrens Chewable Vitamin) 2 tab PO DAILY [facility] Last Admin: 04/28/17 10:28 Dose: Not Given Non-Formulary Medication (Glucosamine & Chonroitin Chewable) 2 tab PO DAILY [facility] Last Admin: 04/28/17 10:28 Dose: Not Given Non-Formulary Medication (Iron Bis-Gly/Fa/C/B12/Ca/Succ [Iron 21/7 Tablet]) 1 each PO DAILY [facility] Last Admin: 04/28/17 10:28 Dose: Not Given Propofol (Diprivan 20 Ml) 220 mg IV .STK-MED ONE Stop: 04/26/17 16:01 Tramadol HCl (Ultram) 50 mg PO Q4H PRN PRN Reason: Pain Last Admin: 04/27/17 09:28 Dose: 50 mg Tramadol HCl (Ultram) 100 mg PO Q4H PRN PRN Reason: Pain Tramadol HCl (Ultram) 100 mg PO Q6H PRN PRN Reason: PAIN Last Admin: 04/28/17 02:14 Dose: 100 mg Tramadol HCl (Ultram) 50 mg PO TID PRN PRN Reason: PAIN Last Admin: 04/28/17 10:34 Dose: 50 mg - Exam General: Alert, Oriented, Cooperative Extremities: Other (Leg is completely wrapped up. Wound not to be checked today. ) - Problem List & Annotations (1) Laceration of thigh, left, complicated SNOMED Code(s): 91439259 Code(s): S71.112A - LACERATION WITHOUT FOREIGN BODY, LEFT THIGH, INIT ENCNTR Status: Acute Current Visit: Yes Qualifiers: Encounter type: initial encounter Qualified Code(s): S71.112A - Laceration without foreign body, left thigh, initial encounter - Problem List Review Problem List Initiated/Reviewed/Updated: Yes - Plan Plan:: Continue current care. Following the patient for Dr. Chaidez wants the patient and over the weekend.
[2017-04-30] MEDS: Calcium Carbonate/Vitamin D3 1250 MG-200 Unit Tab PO SCH (09:16)
[2017-04-30] MEDS: Cholecalciferol (Vitamin D3) 1,000 Unit Tab PO SCH (09:17)
[2017-04-30] MEDS: Ferrous Sulfate 325 MG Tab PO SCH (09:17)
[2017-04-30] MEDS: Folic Acid 0.8 MG Tab PO SCH (09:17)
[2017-04-30] MEDS: predniSONE 5 MG Tab PO SCH (09:17)
[2017-04-30] MEDS: cefTRIAXone 1,000 MG in Sodium Chloride 0.9% 50 ML IV SCH (16:55)
[2017-04-30] MEDS: Sodium Chloride 0.9% 250 ML IV SCH (16:56)
[2017-04-30] MEDS ORDERED: traMADol 50 MG Tab PO PRN (17:12)
[2017-05-01] MEDS: Calcium Carbonate/Vitamin D3 1250 MG-200 Unit Tab PO SCH (08:06)
[2017-05-01] MEDS: Ferrous Sulfate 325 MG Tab PO SCH (08:06)
[2017-05-01] MEDS: predniSONE 5 MG Tab PO SCH (08:07)
[2017-05-01] MEDS: Folic Acid 0.8 MG Tab PO SCH (08:07)
[2017-05-01] MEDS: Cholecalciferol (Vitamin D3) 1,000 Unit Tab PO SCH (08:08)
--- NOTE | 2017-05-01 09:15 | PCM.PN ---
- General Info Date of Service: 05/01/17 Admission Dx/Problem (Free Text): Patient states she still has some discomfort in her knee. She denies drainage. She denies fevers or chills. - Patient Data Vitals - Most Recent: Last Vital Signs Temp 98 F 05/01/17 08:00 Pulse 80 05/01/17 08:00 Resp 16 05/01/17 08:00 BP 136/76 05/01/17 08:00 Pulse Ox 96 05/01/17 08:00 Weight - Most Recent: 97 lb I&O - Last 24 Hours: Intake & Output 04/30/17 05/01/17 05/01/17 22:59 06:59 14:59 Intake Total 572 Balance 572 Med Orders - Current: Current Medications Calcium Carbonate (Calcium Carbonate/Vitamin D 1250 Mg-200 Unit) 1 tab PO DAILY [facility] Last Admin: 05/01/17 08:06 Dose: 1 tab Cholecalciferol (Vitamin D3) 1,000 units PO DAILY [facility] Last Admin: 05/01/17 08:08 Dose: 1,000 units Docusate Sodium (Colace) 100 mg PO BID PRN PRN Reason: Constipation Last Admin: 04/27/17 00:27 Dose: 100 mg Ferrous Sulfate (Ferrous Sulfate) 325 mg PO DAILY [facility] Last Admin: 05/01/17 08:06 Dose: 325 mg Folic Acid (Folic Acid) 0.8 mg PO DAILY [facility] Last Admin: 05/01/17 08:07 Dose: 0.8 mg Hydroxyzine HCl (Vistaril) 50 mg IM Q6H PRN PRN Reason: Nausea Last Admin: 04/28/17 17:52 Dose: 50 mg Ceftriaxone Sodium 1,000 mg/ (Sodium Chloride) 50 mls @ 100 mls/hr IV Q24H [facility] Last Admin: 04/30/17 16:55 Dose: 100 mls/hr Sodium Chloride (Normal Saline) 250 mls @ 100 mls/hr IV ASDIRECTED [facility] Last Admin: 04/30/17 16:56 Dose: 100 mls/hr Methotrexate (Methotrexate) 10 mg PO WE@ [facility] Last Admin: 04/28/17 18:49 Dose: Not Given Prednisone (Prednisone) 5 mg PO DAILY [facility] Last Admin: 05/01/17 08:07 Dose: 5 mg Tramadol HCl (Ultram) 50 mg PO Q6H PRN PRN Reason: Pain Discontinued Medications Bacitracin (Bacitracin) 50,000 units .XX .STK-MED ONE Stop: 04/26/17 17:21 Last Admin: 04/26/17 17:20 Dose: 50,000 units Cefazolin Sodium (Ancef) 1 gm IM ONETIME ONE Stop: 04/26/17 14:34 Last Admin: 04/26/17 15:02 Dose: Not Given Fentanyl (Sublimaze) 100 mcg IV .STK-MED ONE Stop: 04/26/17 16:01 Hydrocortisone Sodium Succinate (Solu-Cortef) 100 mg IV .STK-MED ONE Stop: 04/26/17 16:01 Lactated Ringer's (Ringers, Lactated) 1,000 mls @ 150 mls/hr IV ASDIRECTED [facility] Stop: 04/27/17 00:18 Last Admin: 04/26/17 14:51 Dose: 150 mls/hr Cefazolin Sodium 1 gm/ Sodium (Chloride) 50 mls @ 200 mls/hr IV ONETIME ONE Stop: 04/26/17 15:09 Last Admin: 04/26/17 15:07 Dose: 200 mls/hr Lactated Ringer's (Ringers, Lactated) 1,000 mls @ 125 mls/hr IV ASDIRECTED [facility] Last Admin: 04/27/17 08:43 Dose: 125 mls/hr Lactated Ringer's (Ringers, Lactated) 1,000 mls @ as directed IV .STK-MED ONE Stop: 04/26/17 16:01 Midazolam HCl (Versed 1 Mg/Ml) 2 mg IV .STK-MED ONE Stop: 04/26/17 16:01 Morphine Sulfate (Morphine) 1 mg IVPUSH Q4H PRN PRN Reason: Breakthrough Pain Last Admin: 04/28/17 17:52 Dose: 1 mg Multivitamins/Minerals/Vitamin C (Childrens Chewable Vitamin) 2 tab PO DAILY [facility] Last Admin: 04/28/17 10:28 Dose: Not Given Non-Formulary Medication (Glucosamine & Chonroitin Chewable) 2 tab PO DAILY [facility] Last Admin: 04/28/17 10:28 Dose: Not Given Non-Formulary Medication (Iron Bis-Gly/Fa/C/B12/Ca/Succ [Iron 21/7 Tablet]) 1 each PO DAILY [facility] Last Admin: 04/28/17 10:28 Dose: Not Given Ondansetron HCl (Zofran) 4 mg IVPUSH Q6H PRN PRN Reason: Nausea/Vomiting Last Admin: 04/28/17 16:08 Dose: 4 mg Propofol (Diprivan 20 Ml) 220 mg IV .STK-MED ONE Stop: 04/26/17 16:01 Tramadol HCl (Ultram) 50 mg PO Q4H PRN PRN Reason: Pain Last Admin: 04/27/17 09:28 Dose: 50 mg Tramadol HCl (Ultram) 100 mg PO Q4H PRN PRN Reason: Pain Tramadol HCl (Ultram) 100 mg PO Q6H PRN PRN Reason: PAIN Last Admin: 04/28/17 02:14 Dose: 100 mg Tramadol HCl (Ultram) 50 mg PO TID PRN PRN Reason: PAIN Last Admin: 04/28/17 10:34 Dose: 50 mg Tramadol HCl (Ultram) 100 mg PO TID PRN PRN Reason: PAIN - Exam General: Alert, Oriented, Cooperative Skin: Other (Left knee-sutures are in place with no drainage. There is an open area healing by secondary intention with good healing. There is a lot of tension on this wound due to pulling the skin together and around the knee.) - Problem List & Annotations (1) Laceration of thigh, left, complicated SNOMED Code(s): 22142672 Code(s): S71.112A - LACERATION WITHOUT FOREIGN BODY, LEFT THIGH, INIT ENCNTR Status: Acute Current Visit: Yes Qualifiers: Encounter type: initial encounter Qualified Code(s): S71.112A - Laceration without foreign body, left thigh, initial encounter - Problem List Review Problem List Initiated/Reviewed/Updated: Yes - My Orders Last 24 Hours: My Active Orders 04/30/17 17:12 traMADol [Ultram] 50 mg PO Q6H PRN - Assessment Assessment:: Continue current care. Orthopedic surgeon wants her in at least on Wednesday. - Plan Plan:: Continue current care. Following the patient for Dr. Chaidez wants the patient and over the weekend.
[2017-05-01] MEDS: cefTRIAXone 1,000 MG in Sodium Chloride 0.9% 50 ML IV SCH (15:30)
--- NOTE | 2017-05-02 08:25 | PCM.PN ---
- General Info Date of Service: 05/02/17 Admission Dx/Problem (Free Text): Patient without complaints. She is wondering how long she'll have to have her stitches on. She is currently tiptoed transfer. - Patient Data Vitals - Most Recent: Last Vital Signs Temp 98.4 F 05/01/17 16:00 Pulse 88 05/01/17 18:00 Resp 18 05/02/17 00:00 BP 135/82 05/01/17 16:00 Pulse Ox 98 05/01/17 16:00 Weight - Most Recent: 97 lb I&O - Last 24 Hours: Intake & Output 05/01/17 05/02/17 05/02/17 22:59 06:59 14:59 Intake Total 280 250 Output Total 100 Balance 180 250 Med Orders - Current: Current Medications Calcium Carbonate (Calcium Carbonate/Vitamin D 1250 Mg-200 Unit) 1 tab PO DAILY [facility] Last Admin: 05/01/17 08:06 Dose: 1 tab Cholecalciferol (Vitamin D3) 1,000 units PO DAILY [facility] Last Admin: 05/01/17 08:08 Dose: 1,000 units Docusate Sodium (Colace) 100 mg PO BID PRN PRN Reason: Constipation Last Admin: 04/27/17 00:27 Dose: 100 mg Ferrous Sulfate (Ferrous Sulfate) 325 mg PO DAILY [facility] Last Admin: 05/01/17 08:06 Dose: 325 mg Folic Acid (Folic Acid) 0.8 mg PO DAILY [facility] Last Admin: 05/01/17 08:07 Dose: 0.8 mg Hydroxyzine HCl (Vistaril) 50 mg IM Q6H PRN PRN Reason: Nausea Last Admin: 04/28/17 17:52 Dose: 50 mg Ceftriaxone Sodium 1,000 mg/ (Sodium Chloride) 50 mls @ 100 mls/hr IV Q24H [facility] Last Admin: 05/01/17 15:30 Dose: 100 mls/hr Sodium Chloride (Normal Saline) 250 mls @ 100 mls/hr IV ASDIRECTED [facility] Last Admin: 04/30/17 16:56 Dose: 100 mls/hr Methotrexate (Methotrexate) 10 mg PO WE@ [facility] Last Admin: 04/28/17 18:49 Dose: Not Given Prednisone (Prednisone) 5 mg PO DAILY [facility] Last Admin: 05/01/17 08:07 Dose: 5 mg Tramadol HCl (Ultram) 50 mg PO Q6H PRN PRN Reason: Pain Discontinued Medications Bacitracin (Bacitracin) 50,000 units .XX .STK-MED ONE Stop: 04/26/17 17:21 Last Admin: 04/26/17 17:20 Dose: 50,000 units Cefazolin Sodium (Ancef) 1 gm IM ONETIME ONE Stop: 04/26/17 14:34 Last Admin: 04/26/17 15:02 Dose: Not Given Fentanyl (Sublimaze) 100 mcg IV .STK-MED ONE Stop: 04/26/17 16:01 Hydrocortisone Sodium Succinate (Solu-Cortef) 100 mg IV .STK-MED ONE Stop: 04/26/17 16:01 Lactated Ringer's (Ringers, Lactated) 1,000 mls @ 150 mls/hr IV ASDIRECTED [facility] Stop: 04/27/17 00:18 Last Admin: 04/26/17 14:51 Dose: 150 mls/hr Cefazolin Sodium 1 gm/ Sodium (Chloride) 50 mls @ 200 mls/hr IV ONETIME ONE Stop: 04/26/17 15:09 Last Admin: 04/26/17 15:07 Dose: 200 mls/hr Lactated Ringer's (Ringers, Lactated) 1,000 mls @ 125 mls/hr IV ASDIRECTED [facility] Last Admin: 04/27/17 08:43 Dose: 125 mls/hr Lactated Ringer's (Ringers, Lactated) 1,000 mls @ as directed IV .STK-MED ONE Stop: 04/26/17 16:01 Midazolam HCl (Versed 1 Mg/Ml) 2 mg IV .STK-MED ONE Stop: 04/26/17 16:01 Morphine Sulfate (Morphine) 1 mg IVPUSH Q4H PRN PRN Reason: Breakthrough Pain Last Admin: 04/28/17 17:52 Dose: 1 mg Multivitamins/Minerals/Vitamin C (Childrens Chewable Vitamin) 2 tab PO DAILY [facility] Last Admin: 04/28/17 10:28 Dose: Not Given Non-Formulary Medication (Glucosamine & Chonroitin Chewable) 2 tab PO DAILY [facility] Last Admin: 04/28/17 10:28 Dose: Not Given Non-Formulary Medication (Iron Bis-Gly/Fa/C/B12/Ca/Succ [Iron 21/7 Tablet]) 1 each PO DAILY [facility] Last Admin: 04/28/17 10:28 Dose: Not Given Ondansetron HCl (Zofran) 4 mg IVPUSH Q6H PRN PRN Reason: Nausea/Vomiting Last Admin: 04/28/17 16:08 Dose: 4 mg Propofol (Diprivan 20 Ml) 220 mg IV .STK-MED ONE Stop: 04/26/17 16:01 Tramadol HCl (Ultram) 50 mg PO Q4H PRN PRN Reason: Pain Last Admin: 04/27/17 09:28 Dose: 50 mg Tramadol HCl (Ultram) 100 mg PO Q4H PRN PRN Reason: Pain Tramadol HCl (Ultram) 100 mg PO Q6H PRN PRN Reason: PAIN Last Admin: 04/28/17 02:14 Dose: 100 mg Tramadol HCl (Ultram) 50 mg PO TID PRN PRN Reason: PAIN Last Admin: 04/28/17 10:34 Dose: 50 mg Tramadol HCl (Ultram) 100 mg PO TID PRN PRN Reason: PAIN - Exam General: Alert, Oriented, Cooperative Skin: Other (Left leg sutures in place without erythema or drainage. Open wound is healing nicely. No signs of infection.) - Problem List & Annotations (1) Laceration of thigh, left, complicated SNOMED Code(s): 24609235 Code(s): S71.112A - LACERATION WITHOUT FOREIGN BODY, LEFT THIGH, INIT ENCNTR Status: Acute Current Visit: Yes Qualifiers: Encounter type: initial encounter Qualified Code(s): S71.112A - Laceration without foreign body, left thigh, initial encounter - Problem List Review Problem List Initiated/Reviewed/Updated: Yes - Plan Plan:: Continue current care. Following the patient for Dr. Chaidez wants the patient and over the weekend. Dr. Chaidez to take over in the a.m.
[2017-05-02] MEDS: Ferrous Sulfate 325 MG Tab PO SCH (08:57)
[2017-05-02] MEDS: Cholecalciferol (Vitamin D3) 1,000 Unit Tab PO SCH (08:57)
[2017-05-02] MEDS: predniSONE 5 MG Tab PO SCH (08:57)
[2017-05-02] MEDS: Folic Acid 0.8 MG Tab PO SCH (08:57)
[2017-05-02] MEDS: Calcium Carbonate/Vitamin D3 1250 MG-200 Unit Tab PO SCH (08:57)
[2017-05-02] MEDS: cefTRIAXone 1,000 MG in Sodium Chloride 0.9% 50 ML IV SCH (16:46)
[2017-05-03] MEDS: Sodium Chloride 0.9% 10 ML Syringe FLUSH PRN (07:58)
[2017-05-03] MEDS: Calcium Carbonate/Vitamin D3 1250 MG-200 Unit Tab PO SCH (08:12)
[2017-05-03] MEDS: Ferrous Sulfate 325 MG Tab PO SCH (08:12)
[2017-05-03] MEDS: predniSONE 5 MG Tab PO SCH (08:12)
[2017-05-03] MEDS: Cholecalciferol (Vitamin D3) 1,000 Unit Tab PO SCH (08:12)
[2017-05-03] MEDS: Folic Acid 0.8 MG Tab PO SCH (08:12)
[2017-05-03] MEDS: cefTRIAXone 1,000 MG in Sodium Chloride 0.9% 50 ML IV SCH (17:29)
[2017-05-03] MEDS: Sodium Chloride 0.9% 250 ML IV SCH (17:29)
--- NOTE | 2017-05-04 07:24 | PN ---
DATE SEEN: 05/03/2017 PROBLEMS: 1. Complex laceration, left distal femur secondary to fall in an area of skin damage, which occurred approximately one month prior to admission. 2. Retained hematoma. SUBJECTIVE: The patient states she is having some minimal discomfort, but this only happens when we try to bend the knee to 90 degrees or so, when we are changing the dressing. MEDICATIONS: The patient currently is on ceftriaxone 1 g every 24 hours. OBJECTIVE: Her vital signs remain stable. Her C-reactive protein, however, was 6.9. On examination of the incisions today, they appear to be healing well. There is one area that looks like it is going to be about the size of a silver dollar where it will be necrotic, but it does look much better than it did last . There is no evidence of any infection at this time. No swelling, no erythema. PLAN: I did visit with her today about her needing a usp or assisted living. She obviously, like most people, did not want to hear this. I will discuss this more again tomorrow. Her quadriceps bilaterally are so weak that she has already had 2 falls, and I am afraid that she could fracture her femur or the C-spine, and I think that her days of living at home alone are not going to work. Even with long-leg knee braces, I do not think she has the strength really to even walk with them in upright position with the drop locks at the knee locked. We will visit again tomorrow about this, and then I will visit with our staff about the possible usp placement. Social Service consult will be entered in today. /[id number] NIHKIL/TERRELL
[2017-05-04] MEDS: Sodium Chloride 0.9% 10 ML Syringe FLUSH PRN (08:05)
[2017-05-04] MEDS: Ferrous Sulfate 325 MG Tab PO SCH (08:20)
[2017-05-04] MEDS: Calcium Carbonate/Vitamin D3 1250 MG-200 Unit Tab PO SCH (08:20)
[2017-05-04] MEDS: Cholecalciferol (Vitamin D3) 1,000 Unit Tab PO SCH (08:20)
[2017-05-04] MEDS: Folic Acid 0.8 MG Tab PO SCH (08:20)
[2017-05-04] MEDS: predniSONE 5 MG Tab PO SCH (08:20)
[2017-05-04 08:53] VITALS: BP 110/72
--- NOTE | 2017-05-05 03:12 | DISCH ---
DISCHARGE DATE: 05/04/2017 Discharge from Med-Surg to swing bed. HISTORY AND HOSPITAL COURSE: This patient was admitted for her second fall within 4 weeks. Her first fall 4 weeks ago she contused the left knee significantly with large hematoma. At the time of discharge, she had 2 areas, 1 on the knee and 1 around the knee about the size of 50 cent piece that appeared to be developing eschar with skin underneath. When she fell prior to this admission, the patient tore open both of those areas, which indeed did show a vascular skin and sustained several other large lacerations in the area that was already contused. Moderate amount of hematoma was removed at the time of surgery for irrigation, debridement, and closure. While in the operative suite, we trimmed back any tissue, and any tissue that was thought to be viable was going to be left to declare itself. The goal was to get this closed without any infection and to hopefully refrain from having to do a flap to get adequate coverage. At the time of discharge, the patient's vital signs are stable, and she will be fitted with long-leg brace with strengthening by the therapist, as well as visitation by occupational therapy. It is explained to her that I am not optimistic about her returning home, and she is very adamant on trying to return home; therefore, family conference will be convened on May 06 to discuss the risk that this poses to her. 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 CONSULTATIONS: The patient was followed by Dr. Finn and Dr. Garcia, hospitalists during her stay. COMPLICATIONS: The patient had no operative or medical complications, but again we are concerned about the healing area to her knee and around the knee. ACTIVITY: The patient will work with Physical Therapy and Occupational Therapy, but we will have a long leg knee brace on when she is up. Dressing will be changed again on Wednesday for re-evaluation of progressive healing. MEDICATIONS: The patient will resume her current medications, including her ceftriaxone 1 g every 24 hours while in the swing bed. DIET: Regular. /[id number] NIKHIL/TERRELL MTDD
--- NOTE | 2017-05-06 20:34 | PN ---
DATE SEEN: 05/06/2017 PROBLEM: Multiple complex lacerations, left knee, status post previous fall with contusion and large hematoma, left knee. SUBJECTIVE: The patient states she is asymptomatic today. Her vital signs are stable, and the incision actually looks about 30%-40% better than it did last week at this time. Some of the areas that we thought that would be developing tissue actually now are healing well. She still has an area about the 4 cm x 2.5 cm, that is very questionable. There is no evidence of infection. The other parts of the laceration appear to be healing well. We did have a care conference and the patient refuses to go to a halfway. She cannot do stairs because of her weakness in the quad. She has trouble standing alone on balance, and due to the fact that her last fall occurred while she was being cared for in attendance by the therapist, makes her very large risk for going home, and that is why I cannot recommend that. During the conference, her son from [place] stated that she could live with them for a while to see how this goes. I have recommended that she go to the halfway here, so we can keep a close eye on the incision, and we also know that it has been progressing. The area definitely, if it would have been excised down to healthy skin on her last surgical encounter, she would have required a large flap to get this closed. Right now, she is making good progress and I am concerned that if someone who is not familiar with her and does not have patience to let the body to declare its own tissue margins, a surgery would be done probably too early with still the need of a smaller flap. We have elected at the conference to let her continue to try some strengthening and we will continue daily IV antibiotics with daily changes of her dressing. When the dressing is removed, warm soapy soaks will be used for about 10-15 minutes and then dried and then a new dressing applied to help combat infection. We still are concerned about this as a possible problem also. Overall, she is a very complex patient who is not aligning with our recommended treatment protocol. Vital signs are stable. There is no evidence of infection at this time. C- reactive protein to be drawn Wednesday morning. /[id number] NIKHIL/TERRELL
== END 2017-05-04 12:10 | disposition swing bed (61) | DRG 605 ==
LOC: FB.ED 14:05 → FB.MS 15:49
PROVIDERS: ADMIT Emergency Medicine; ATTEND Orthopaedic Surgery
PROC: 0HQLXZZ Repair Left Lower Leg Skin, External Approach (ICD-10-PCS; principal; 2017-04-26)
PROC: 0H9LX0Z Drainage of Left Lower Leg Skin with Drainage Device, External Approach (ICD-10-PCS; 2017-04-26)
DX: S81.012A Laceration without foreign body, left knee, initial encounter (principal); L76.32 Postprocedural hematoma of skin and subcutaneous tissue following other procedure; S71.112A Laceration without foreign body, left thigh, initial encounter; Z91.81 History of falling; G72.41 Inclusion body myositis [IBM]; W01.0XXA Fall on same level from slipping, tripping and stumbling without subsequent striking against object, initial encounter; Y92.007 Garden or yard of unspecified non-institutional (private) residence as the place of occurrence of the external cause; Z86.718 Personal history of other venous thrombosis and embolism; Z86.711 Personal history of pulmonary embolism; H54.7 Unspecified visual loss; Z91.030 Bee allergy status; Z88.8 Allergy status to other drugs, medicaments and biological substances; Z79.52 Long term (current) use of systemic steroids
CPT/HCPCS: 73562; 96361; 96365; 99284 ×2; J0690; J7050; J7120; 36415; 80048; 85014; 85018; 85025; 86140; 94150; A9270-GY; J0696; J1720; J2250; J2270; J2405; J2704; J3010; J3410; J8610

== ENCOUNTER 2017-05-04 12:10 | Inpatient (IN) | payer MEDICARE, OTHER ==
[2017-05-04] MEDS: cefTRIAXone 1,000 MG in Sodium Chloride 0.9% 50 ML IV SCH (17:15)
[2017-05-05] MEDS: predniSONE 5 MG Tab PO SCH (08:13)
[2017-05-05] MEDS: Multivitamin, Childrens Tab.Chew PO SCH (08:13)
[2017-05-05] MEDS: Cholecalciferol (Vitamin D3) 1,000 Unit Tab PO SCH (08:13)
[2017-05-05] MEDS: Ferrous Sulfate 325 MG Tab PO SCH (08:13)
[2017-05-05] MEDS: Methotrexate 2.5 MG Tab PO SCH ×2 (08:13→17:56)
[2017-05-05] MEDS: Folic Acid 0.8 MG Tab PO SCH (08:13)
[2017-05-05] MEDS: Calcium Carbonate/Vitamin D3 1250 MG-200 Unit Tab PO SCH (08:13)
[2017-05-05] MEDS ORDERED: [UNRECOGNIZED DRUG - OTHER] PO SCH (09:00)
[2017-05-05] MEDS: cefTRIAXone 1,000 MG in Sodium Chloride 0.9% 50 ML IV SCH (16:51)
[2017-05-06] MEDS: Cholecalciferol (Vitamin D3) 1,000 Unit Tab PO SCH (09:40)
[2017-05-06] MEDS: Calcium Carbonate/Vitamin D3 1250 MG-200 Unit Tab PO SCH (09:40)
[2017-05-06] MEDS: Folic Acid 0.8 MG Tab PO SCH (09:40)
[2017-05-06] MEDS: predniSONE 5 MG Tab PO SCH (09:40)
[2017-05-06] MEDS: Ferrous Sulfate 325 MG Tab PO SCH (09:40)
[2017-05-06] MEDS: Multivitamin, Childrens Tab.Chew PO SCH (09:40)
[2017-05-06] MEDS: cefTRIAXone 1,000 MG in Sodium Chloride 0.9% 50 ML IV SCH (16:30)
[2017-05-06] MEDS: Sodium Chloride 0.9% 10 ML Syringe FLUSH PRN (16:30)
[2017-05-06] MEDS: Sodium Chloride 0.9% 250 ML IV SCH (16:30)
[2017-05-07] MEDS: predniSONE 5 MG Tab PO SCH (09:56)
[2017-05-07] MEDS: Calcium Carbonate/Vitamin D3 1250 MG-200 Unit Tab PO SCH (09:56)
[2017-05-07] MEDS: Cholecalciferol (Vitamin D3) 1,000 Unit Tab PO SCH (09:56)
[2017-05-07] MEDS: Folic Acid 0.8 MG Tab PO SCH (09:56)
[2017-05-07] MEDS: Ferrous Sulfate 325 MG Tab PO SCH (09:56)
[2017-05-07] MEDS: Multivitamin, Childrens Tab.Chew PO SCH (09:56)
[2017-05-07] MEDS: cefTRIAXone 1,000 MG in Sodium Chloride 0.9% 50 ML IV SCH (16:00)
[2017-05-07] MEDS: Sodium Chloride 0.9% 250 ML IV SCH (16:00)
[2017-05-07] MEDS: Sodium Chloride 0.9% 10 ML Syringe FLUSH PRN (16:00)
[2017-05-08] MEDS: Folic Acid 0.8 MG Tab PO SCH (08:00)
[2017-05-08] MEDS: Ferrous Sulfate 325 MG Tab PO SCH (08:00)
[2017-05-08] MEDS: Calcium Carbonate/Vitamin D3 1250 MG-200 Unit Tab PO SCH (08:00)
[2017-05-08] MEDS: Multivitamin, Childrens Tab.Chew PO SCH (08:00)
[2017-05-08] MEDS: predniSONE 5 MG Tab PO SCH (08:00)
[2017-05-08] MEDS: Cholecalciferol (Vitamin D3) 1,000 Unit Tab PO SCH (08:00)
[2017-05-08] MEDS: cefTRIAXone 1,000 MG in Sodium Chloride 0.9% 50 ML IV SCH (16:50)
[2017-05-09] MEDS: Sodium Chloride 0.9% 10 ML Syringe FLUSH PRN (07:55)
[2017-05-09] MEDS: predniSONE 5 MG Tab PO SCH (08:21)
[2017-05-09] MEDS: Calcium Carbonate/Vitamin D3 1250 MG-200 Unit Tab PO SCH (08:21)
[2017-05-09] MEDS: Folic Acid 0.8 MG Tab PO SCH (08:21)
[2017-05-09] MEDS: Cholecalciferol (Vitamin D3) 1,000 Unit Tab PO SCH (08:21)
[2017-05-09] MEDS: Multivitamin, Childrens Tab.Chew PO SCH (08:21)
[2017-05-09] MEDS: Ferrous Sulfate 325 MG Tab PO SCH (08:21)
[2017-05-09] MEDS: cefTRIAXone 1,000 MG in Sodium Chloride 0.9% 50 ML IV SCH (16:59)
[2017-05-10] MEDS: Ferrous Sulfate 325 MG Tab PO SCH (10:00)
[2017-05-10] MEDS: Calcium Carbonate/Vitamin D3 1250 MG-200 Unit Tab PO SCH (10:00)
[2017-05-10] MEDS: Folic Acid 0.8 MG Tab PO SCH (10:00)
[2017-05-10] MEDS: Cholecalciferol (Vitamin D3) 1,000 Unit Tab PO SCH (10:00)
[2017-05-10] MEDS: Multivitamin, Childrens Tab.Chew PO SCH (10:00)
[2017-05-10] MEDS: predniSONE 5 MG Tab PO SCH (10:00)
[2017-05-10] MEDS: cefTRIAXone 1,000 MG in Sodium Chloride 0.9% 50 ML IV SCH (16:18)
[2017-05-10] MEDS: Sodium Chloride 0.9% 250 ML IV SCH (16:18)
--- NOTE | 2017-05-10 18:37 | PN ---
DATE SEEN: 05/10/2017 PROBLEM: Complex laceration, left knee, with retained hematoma. SUBJECTIVE: Patient states she is asymptomatic. OBJECTIVE: Her vital signs remain stable and her C-reactive protein was drawn and is less than 0.5 today. On inspection of the area today, this wound continues to make good progress healing and I doubt that she will need a muscle flap to close this. She has made good progress. There is no evidence of swelling of the knee. There is no active discharge. There is some eschar and healing tissue that comes off the daily dressing in the area that we were concerned about. This area, however, continues to diminish in size. We will continue with daily dressings, continue with IV antibiotics, and all sutures except 2 are removed today. Those [address] another small area is granulating in. She will be discharged on . Per her request, we will let her go home. I am somewhat worried even though she can get up by herself and she uses a walker and walks well with a knee immobilizer on. She has been instructed how to use the knee immobilizer. Despite her ability to walk, she does have significant thigh atrophy which will get worse with time, and again I am concerned about her falling and hurting her neck or getting a hip fracture, but she is adamant about going home. Dressings will be changed again on Wednesday. Prescription for oral antibiotics then will be started. /[id number] NIKHIL/TERRELL
[2017-05-11] MEDS: Sodium Chloride 0.9% 10 ML Syringe FLUSH PRN (07:59)
[2017-05-11] MEDS: Ferrous Sulfate 325 MG Tab PO SCH (08:00)
[2017-05-11] MEDS: Folic Acid 0.8 MG Tab PO SCH (08:00)
[2017-05-11] MEDS: Calcium Carbonate/Vitamin D3 1250 MG-200 Unit Tab PO SCH (08:00)
[2017-05-11] MEDS: Cholecalciferol (Vitamin D3) 1,000 Unit Tab PO SCH (08:00)
[2017-05-11] MEDS: predniSONE 5 MG Tab PO SCH (08:00)
[2017-05-11] MEDS: Multivitamin, Childrens Tab.Chew PO SCH (08:00)
[2017-05-11] MEDS: cefTRIAXone 1,000 MG in Sodium Chloride 0.9% 50 ML IV SCH (16:08)
[2017-05-11] MEDS: Sodium Chloride 0.9% 250 ML IV SCH (16:08)
[2017-05-12] MEDS: Sodium Chloride 0.9% 10 ML Syringe FLUSH PRN ×2 (07:53→16:57)
[2017-05-12] MEDS: Ferrous Sulfate 325 MG Tab PO SCH (08:19)
[2017-05-12] MEDS: Calcium Carbonate/Vitamin D3 1250 MG-200 Unit Tab PO SCH (08:19)
[2017-05-12] MEDS: predniSONE 5 MG Tab PO SCH (08:19)
[2017-05-12] MEDS: Multivitamin, Childrens Tab.Chew PO SCH (08:19)
[2017-05-12] MEDS: Folic Acid 0.8 MG Tab PO SCH (08:19)
[2017-05-12] MEDS: Cholecalciferol (Vitamin D3) 1,000 Unit Tab PO SCH (08:19)
[2017-05-12] MEDS: Methotrexate 2.5 MG Tab PO SCH ×2 (08:19→18:13)
--- NOTE | 2017-05-12 13:53 | PN ---
DATE SEEN: 05/12/2017 PROBLEMS: 1. Six weeks status post contusion with hematoma, left knee. 2. Approximately 2-1/2 weeks post repeat injury with multiple lacerations of the left knee. SUBJECTIVE: The patient is asymptomatic today. Objectively, the patient is doing very well with no apparent difficulties walking with the brace on. OBJECTIVE: Her vital signs are stable. PLAN: 1. This patient does have some chronic anemia, so we are repeating a CBC today. 2. She will be discharged under the care of Dr. Blackmon who has agreed to follow her laceration and healing process. Return appointment with Dr. Blackmon in approximately 6 days. 3. The patient will be discharged tomorrow and home health will be involved with daily dressing changes. 4. The patient will be placed on Cipro 500 p.o. b.i.d. for 10 days with modifications of antibiotic to be made in the future by Dr. Blackmon. /[id number] NIKHIL/TERRELL
--- NOTE | 2017-05-12 15:39 | PCM.CONS ---
H&P History of Present Illness - General Date of Service: 05/12/17 Admit Problem/Dx: Admission Diagnosis/Problem Admission Diagnosis/Problem Laceration - injury Source of Information: Patient - History of Present Illness Initial Comments - Free Text/Narative: 76 yo wf who is currently in a swing bed. she has sustained a fall with subsequent injury to the lle above the knee. she had a closure in the OR by Dr Chaidez. She has been in swing bed for wound care and iv antibiotics. She has had some eschar formation on the over the wound. This has been responding slowly to the wound care provided by PT. I have been asked to assume the Pt's care as Dr Chaidez is retiring. Pain Pain Score (Numeric/FACES): 0 denies when asked Pain Score (Numeric/FACES): 0 - Related Data Allergies/Adverse Reactions: Allergies Allergy/AdvReac Type Severity Reaction Status Date / Time ketorolac [From Toradol] Allergy Hives Verified 05/04/17 18:44 Bee Stings Allergy Hives Uncoded 05/04/17 18:44 Home Medications: Home Meds Folic Acid 800 mcg PO DAILY 05/19/16 [History] Glucosamine & Chonroitin Chewable 2 tab PO DAILY 05/19/16 [History] Calcium Carb/Vitamin D3/Vit K1 [Viactiv Soft Chew] 1 tab PO DAILY 03/29/17 [ History] Cholecalciferol (Vitamin D3) [Vitamin D3] 1,000 unit PO DAILY 03/29/17 [History] Methotrexate 10 mg PO WE@08,18 03/29/17 [History] Multivitamin [Multivitamins] 2 tab PO DAILY 03/29/17 [History] Iron 18 mg PO DAILY 04/26/17 [History] Iron Bis-Gly/FA/C/B12/Ca/Succ [Iron 21/7 Tablet] 1 each PO DAILY 04/26/17 [ History] predniSONE 5 mg PO DAILY tablet 05/12/17 [Rx] Past Medical History HEENT History: Reports: Impaired Vision Cardiovascular History: Reports: Other (See Below) Other Cardiovascular History: June 2016: Presently has blood clot between toes on right foot. 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 Musculoskeletal History: Reports: Other (See Below) Other Musculoskeletal History: IBM - Past Surgical History GI Surgical History: Reports: Appendectomy, Colonoscopy, EGD, Esophageal Dilatation Female Surgical History: Reports: Hysterectomy, Salpingo-Oophorectomy Musculoskeletal Surgical History: Reports: Hip Replacement Social & Family History - Family History Family Medical History: Noncontributory Cardiac: Reports: CAD GI: Reports: None Neurological: Reports: CVA Oncologic: Reports: Breast, Colon - Tobacco Use Smoking Status *Q: Never Smoker Second Hand Smoke Exposure: No - Caffeine Use Caffeine Use: Reports: Coffee Other Caffeine Use: 8 cups per day Caffeine Use Comment: 8 cups per day - Recreational Drug Use Recreational Drug Use: No H&P Review of Systems - Review of Systems: Review Of Systems: See Below Pulmonary: Reports: No Symptoms Cardiovascular: Reports: No Symptoms Skin: Reports: Wound Exam - Exam Exam: See Below - Vital Signs Vital Signs: Last Vital Signs Temp 36.5 C 05/12/17 07:46 Pulse 77 05/12/17 07:46 Resp 16 05/12/17 07:46 BP 109/66 05/12/17 07:46 Pulse Ox 97 05/12/17 07:46 Weight: 43.998 kg - Exam General: Alert, Oriented Lungs: Clear to Auscultation Cardiovascular: Regular Rate GI/Abdominal Exam: Normal Bowel Sounds Extremities: Other (pt has a [id number] cm area of eschar above the left knee. ) - Patient Data Lab Results Last 24 hrs: Laboratory Results - last 24 hr 05/12/17 Range/Units 14:00 WBC 10.1 (4.5-12.0) X10-3/uL RBC 4.75 (3.23-5.20) x10(6)uL Hgb 12.9 (11.5-15.5) g/dL Hct 40.6 (30.0-51.3) % MCV 85.4 (80-96) fL MCH 27.2 L (27.7-33.6) pg MCHC 31.8 L (32.2-35.4) g/dL RDW 19.0 H (11.5-15.5) % Plt Count 494 H (125-369) X10(3)uL MPV 7.2 L (7.4-10.4) fL Neut % (Auto) 69.6 (46-82) % Lymph % (Auto) 22.5 (13-37) % Curry % (Auto) 5.0 (4-12) % Eos % (Auto) 1 (1.0-5.0) % Baso % (Auto) 2 (0-2) % Neut # (Auto) 7.0 (1.6-8.3) # Lymph # (Auto) 2.3 (0.6-5.0) # Curry # (Auto) 0.5 (0.0-1.3) # Eos # (Auto) 0.1 (0.0-0.8) # Baso # (Auto) 0.2 (0.0-0.2) # Result Diagrams: 05/12/17 14:00 Consult PN Assessment/Plan Procedures: Procedures ASSAY OF NATRIURETIC PEPTIDE (05/18/16) ASSAY OF TROPONIN QUANT (05/18/16) BLOOD TRANSFUSION SERVICE (03/29/17) BLOOD TYPING SEROLOGIC ABO (03/29/17) BLOOD TYPING SEROLOGIC RH(D) (03/29/17) C-REACTIVE PROTEIN (04/26/17) CHEST X-RAY 1 VIEW FRONTAL (05/18/16) COMP SCREEN MAMMOGRAM ADD-ON (08/30/15) COMPATIBILITY TEST ANTIGLOB (03/29/17) COMPATIBILITY TEST SPIN (03/29/17) COMPLETE CBC AUTOMATED (05/18/16) COMPLETE CBC W/AUTO DIFF WBC (04/26/17) COMPREHEN METABOLIC PANEL (03/29/17) CT ANGIOGRAPHY CHEST (05/18/16) CT HEAD/BRAIN W/O DYE (02/27/16) DXA BONE DENSITY AXIAL (12/07/16) ELECTROCARDIOGRAM TRACING (05/18/16) EMERGENCY DEPT VISIT (04/26/17) EMERGENCY DEPT VISIT (03/29/17) EMERGENCY DEPT VISIT (06/28/16) EMERGENCY DEPT VISIT (05/18/16) EMERGENCY DEPT VISIT (05/18/16) EMERGENCY DEPT VISIT (02/27/16) EXTREMITY STUDY (07/15/16) FIBRIN DEGRADATION QUANT (05/18/16) HEMATOCRIT (04/26/17) HEMOGLOBIN (04/26/17) HYDRATE IV INFUSION ADD-ON (04/26/17) MANUAL THERAPY 1/> REGIONS (07/20/14) METABOLIC PANEL TOTAL CA (04/26/17) MRI JNT OF LWR EXTRE W/O DYE (03/29/17) MRI JOINT UPR EXTREM W/O DYE (03/29/17) OCCULT BLOOD FECES (05/18/16) OT EVAL LOW COMPLEX 30 MIN (03/29/17) PHYSICAL MEDICINE PROCEDURE (05/14/16) PROTHROMBIN TIME (05/18/16) PT EVALUATION (05/11/14) RBC ANTIBODY SCREEN (03/29/17) ROUTINE VENIPUNCTURE (04/26/17) THER/PROPH/DIAG IV INF INIT (04/26/17) THROMBOPLASTIN TIME PARTIAL (05/18/16) ULTRASOUND THERAPY (07/20/14) URINALYSIS AUTO W/SCOPE (05/18/16) VITAL CAPACITY TEST (04/26/17) X-RAY EXAM HIP UNI 1 VIEW (06/28/16) X-RAY EXAM OF KNEE 1 OR 2 (03/29/17) X-RAY EXAM OF KNEE 3 (04/26/17) X-RAY EXAM OF SHOULDER (03/29/17) (1) Skin eschar SNOMED Code(s): 283581564 Code(s): R23.4 - CHANGES IN SKIN TEXTURE Current Visit: Yes (2) Laceration of thigh, left, complicated SNOMED Code(s): 91982793 Code(s): S71.112A - LACERATION WITHOUT FOREIGN BODY, LEFT THIGH, INIT ENCNTR Current Visit: No Qualifiers: Encounter type: sequela Qualified Code(s): S71.112S - Laceration without foreign body, left thigh, sequela Problem List Initiated/Reviewed/Updated: Yes Plan: debridement of this area in the am. procedure and risks were explained to the pt to include bleeding infection and the need for repeat operations. She expressed understanding and asks us to proceed.
--- NOTE | 2017-05-12 16:07 | DISCH ---
DISCHARGE DATE: 05/12/2017 PROBLEMS: 1. Contusion left knee with hematoma approximately 6 weeks ago. 2. Repeat contusion and multiple lacerations on left knee, 16 days ago. CONSULTATIONS: 1. Dr. Jak Garcia, hospitalist. 2. Dr. Andreas Blackmon. COMPLICATIONS: None. ACTIVITY: 1. The patient is to be up with a walker and assistance only. 2. The patient is to be utilizing a knee immobilizer when she is up. RETURN APPOINTMENT: The patient will see Dr. Blackmon in 6 days approximately for recheck. SPECIAL CARES: The patient will be examined daily by home health, where dressings will be changed on a daily basis. MEDICATIONS: 1. Resume pre-admission medications, usual dosage and frequency. 2. Cipro 500 p.o. b.i.d. for 10 days. DIET: Regular. /[id number] NIKHIL/TERRELL
[2017-05-12] MEDS: cefTRIAXone 1,000 MG in Sodium Chloride 0.9% 50 ML IV SCH (16:59)
[2017-05-13] MEDS ORDERED: Propofol 200 MG/20 ML SDV IV ONE (08:30)
[2017-05-13] MEDS ORDERED: fentaNYL 100 MCG/2 ML SDV IV ONE (08:30)
[2017-05-13] MEDS ORDERED: Midazolam 1 MG/ML 2 ML SDV IV ONE (08:30)
--- NOTE | 2017-05-13 09:58 | PCM.OPNOTE ---
- General Post-Op/Procedure Note Date of Surgery/Procedure: 05/13/17 Operative Procedure(s): debridement of eschar and fat left thigh wound Findings: necrotic skin and fat debrided back to normal tissue Pre Op Diagnosis: eschar left thigh Post-Op Diagnosis: Same Anesthesia Technique: Local (10 ml 1 % lido with epi / 0.5% buvipicaine), MAC Primary Surgeon: Andreas Blackmon Anesthesia Provider: Mary Beth Meléndez Pathology: tissue for culture Complications: None Condition: Good Free Text/Narrative:: Intake & Output 05/12/17 05/13/17 05/13/17 22:59 06:59 14:59 Intake Total 84 Balance 84 see dictation
[2017-05-13] MEDS: Ferrous Sulfate 325 MG Tab PO SCH (10:06)
[2017-05-13] MEDS: Multivitamin, Childrens Tab.Chew PO SCH (10:06)
[2017-05-13] MEDS: Calcium Carbonate/Vitamin D3 1250 MG-200 Unit Tab PO SCH (10:06)
[2017-05-13] MEDS: Folic Acid 0.8 MG Tab PO SCH (10:07)
[2017-05-13] MEDS: Cholecalciferol (Vitamin D3) 1,000 Unit Tab PO SCH (10:07)
[2017-05-13] MEDS: Acetaminophen/HYDROcodone 325-5 MG Tab PO PRN ×2 (10:09→17:13)
[2017-05-13] MEDS: predniSONE 5 MG Tab PO SCH (10:09)
[2017-05-13] MEDS: traMADol 50 MG Tab PO PRN ×2 (13:48→21:50)
[2017-05-14] MEDS: Acetaminophen/HYDROcodone 325-5 MG Tab PO PRN (03:19)
[2017-05-14] MEDS: Calcium Carbonate/Vitamin D3 1250 MG-200 Unit Tab PO SCH (09:30)
[2017-05-14] MEDS: Cholecalciferol (Vitamin D3) 1,000 Unit Tab PO SCH (09:30)
[2017-05-14] MEDS: Folic Acid 0.8 MG Tab PO SCH (09:30)
[2017-05-14] MEDS: Ferrous Sulfate 325 MG Tab PO SCH (09:30)
[2017-05-14] MEDS: predniSONE 5 MG Tab PO SCH (09:30)
[2017-05-14] MEDS: Multivitamin, Childrens Tab.Chew PO SCH (09:30)
[2017-05-14] MEDS: traMADol 50 MG Tab PO PRN (09:31)
--- NOTE | 2017-05-14 10:20 | PCM.SURGPN ---
- General Info Date of Service: 05/14/17 Functional Status: Reports: Pain Controlled, Ambulating, Urinating - Review of Systems Musculoskeletal: Reports: No Symptoms Skin: Reports: No Symptoms - Patient Data Vitals - Most Recent: Last Vital Signs Temp 37.1 C 05/13/17 11:15 Pulse 72 05/13/17 11:15 Resp 18 05/13/17 11:15 BP 107/56 L 05/13/17 11:15 Pulse Ox 93 L 05/13/17 11:15 Weight - Most Recent: 43.998 kg I&O - Last 24 Hours: Intake & Output 05/13/17 05/14/17 05/14/17 22:59 06:59 14:59 Intake Total 80 0 Balance 80 0 Med Orders - Current: Current Medications Hydrocodone Bitart/Acetaminophen ([place] 325-5 Mg) 1 tab PO Q4H PRN PRN Reason: Pain Last Admin: 05/14/17 03:19 Dose: 1 tab Calcium Carbonate (Calcium Carbonate/Vitamin D 1250 Mg-200 Unit) 1 tab PO DAILY [facility] Last Admin: 05/14/17 09:30 Dose: 1 tab Cholecalciferol (Vitamin D3) 1,000 units PO DAILY [facility] Last Admin: 05/14/17 09:30 Dose: 1,000 units Ferrous Sulfate (Ferrous Sulfate) 325 mg PO DAILY [facility] Last Admin: 05/14/17 09:30 Dose: 325 mg Folic Acid (Folic Acid) 0.8 mg PO DAILY [facility] Last Admin: 05/14/17 09:30 Dose: 0.8 mg Sodium Chloride (Normal Saline) 250 mls @ 125 mls/hr IV ASDIRECTED [facility] Last Admin: 05/11/17 16:08 Dose: 125 mls/hr Methotrexate (Methotrexate) 10 mg PO WE@18 [facility] Last Admin: 05/12/17 18:13 Dose: 10 mg Multivitamins/Minerals/Vitamin C (Childrens Chewable Vitamin) 2 tab PO DAILY [facility] Last Admin: 05/14/17 09:30 Dose: Not Given Prednisone (Prednisone) 5 mg PO DAILY [facility] Last Admin: 05/14/17 09:30 Dose: 5 mg Senna/Docusate Sodium (Senna Plus) 1 tab PO DAILY PRN PRN Reason: Constipation Sodium Chloride (Saline Flush) 10 ml FLUSH ASDIRECTED PRN PRN Reason: IV Use Last Admin: 05/12/17 16:57 Dose: 10 ml Tramadol HCl (Ultram) 50 mg PO Q4H PRN PRN Reason: Pain Last Admin: 05/14/17 09:31 Dose: 50 mg Discontinued Medications Fentanyl (Sublimaze) 25 mcg IV .STK-MED ONE Stop: 05/13/17 08:31 Ceftriaxone Sodium 1,000 mg/ (Sodium Chloride) 50 mls @ 100 mls/hr IV Q24H EWA Last Admin: 05/12/17 16:59 Dose: 100 mls/hr Midazolam HCl (Versed 1 Mg/Ml) 1 mg IV .STK-MED ONE Stop: 05/13/17 08:31 Propofol (Diprivan 20 Ml) 120 mg IV .STK-MED ONE Stop: 05/13/17 08:31 - Exam Wound/Incisions: Other (dressing taken done and aquacel ag removed. no evidence of infection. some ecchymosis on the inf flap. ) General: Alert, Oriented - Problem List & Annotations (1) Skin eschar SNOMED Code(s): 000205299 Code(s): R23.4 - CHANGES IN SKIN TEXTURE Status: Acute Current Visit: Yes (2) Laceration of thigh, left, complicated SNOMED Code(s): 59309349 Code(s): S71.112A - LACERATION WITHOUT FOREIGN BODY, LEFT THIGH, INIT ENCNTR Status: Acute Current Visit: No Qualifiers: Encounter type: sequela Qualified Code(s): S71.112S - Laceration without foreign body, left thigh, sequela - Problem List Review Problem List Initiated/Reviewed/Updated: Yes - My Orders Last 24 Hours: Active Orders 24 hr Category Date Time Status Ready for Discharge [RC] PER UNIT ROUTINE Care 05/13/17 10:00 Inactive Regular Diet [DIET] Diet 05/13/17 Lunch Active Acetaminophen/HYDROcodone [[place] 325-5 MG] Med 05/13/17 09:55 Active 1 tab PO Q4H PRN Wound Vac Management [OM.PC] Routine Oth 05/14/17 10:17 Ordered Medication Orders Hydrocodone Bitart/Acetaminophen ([place] 325-5 Mg) 1 tab PO Q4H PRN PRN Reason: Pain Last Admin: 05/14/17 03:19 Dose: 1 tab Admin: 05/13/17 17:13 Dose: 1 tab Admin: 05/13/17 10:09 Dose: 1 tab Calcium Carbonate (Calcium Carbonate/Vitamin D 1250 Mg-200 Unit) 1 tab PO DAILY [facility] Last Admin: 05/14/17 09:30 Dose: 1 tab Admin: 05/13/17 10:06 Dose: Not Given Admin: 05/12/17 08:19 Dose: 1 tab Admin: 05/11/17 08:00 Dose: 1 tab Admin: 05/10/17 10:00 Dose: 1 tab Admin: 05/09/17 08:21 Dose: 1 tab Admin: 05/08/17 08:00 Dose: 1 tab Admin: 05/07/17 09:56 Dose: 1 tab Admin: 05/06/17 09:40 Dose: 1 tab Admin: 05/05/17 08:13 Dose: 1 tab Cholecalciferol (Vitamin D3) 1,000 units PO DAILY [facility] Last Admin: 05/14/17 09:30 Dose: 1,000 units Admin: 05/13/17 10:07 Dose: Not Given Admin: 05/12/17 08:19 Dose: 1,000 units Admin: 05/11/17 08:00 Dose: 1,000 units Admin: 05/10/17 10:00 Dose: 1,000 units Admin: 05/09/17 08:21 Dose: 1,000 units Admin: 05/08/17 08:00 Dose: 1,000 units Admin: 05/07/17 09:56 Dose: 1,000 units Admin: 05/06/17 09:40 Dose: 1,000 units Admin: 05/05/17 08:13 Dose: 1,000 units Ferrous Sulfate (Ferrous Sulfate) 325 mg PO DAILY [facility] Last Admin: 05/14/17 09:30 Dose: 325 mg Admin: 05/13/17 10:06 Dose: Not Given Admin: 05/12/17 08:19 Dose: 325 mg Admin: 05/11/17 08:00 Dose: 325 mg Admin: 05/10/17 10:00 Dose: 325 mg Admin: 05/09/17 08:21 Dose: 325 mg Admin: 05/08/17 08:00 Dose: 325 mg Admin: 05/07/17 09:56 Dose: 325 mg Admin: 05/06/17 09:40 Dose: 325 mg Admin: 05/05/17 08:13 Dose: 325 mg Folic Acid (Folic Acid) 0.8 mg PO DAILY [facility] Last Admin: 05/14/17 09:30 Dose: 0.8 mg Admin: 05/13/17 10:07 Dose: Not Given Admin: 05/12/17 08:19 Dose: 0.8 mg Admin: 05/11/17 08:00 Dose: 0.8 mg Admin: 05/10/17 10:00 Dose: 0.8 mg Admin: 05/09/17 08:21 Dose: 0.8 mg Admin: 05/08/17 08:00 Dose: 0.8 mg Admin: 05/07/17 09:56 Dose: 0.8 mg Admin: 05/06/17 09:40 Dose: 0.8 mg Admin: 05/05/17 08:13 Dose: 0.8 mg Sodium Chloride (Normal Saline) 250 mls @ 125 mls/hr IV ASDIRECTED [facility] Last Admin: 05/11/17 16:08 Dose: 125 mls/hr Admin: 05/10/17 16:18 Dose: 125 mls/hr Admin: 05/07/17 16:00 Dose: 125 mls/hr Admin: 05/06/17 16:30 Dose: 125 mls/hr Methotrexate (Methotrexate) 10 mg PO WE@,18 [facility] Last Admin: 05/12/17 18:13 Dose: 10 mg Admin: 05/12/17 08:19 Dose: 10 mg Admin: 05/05/17 17:56 Dose: 10 mg Admin: 05/05/17 08:13 Dose: 10 mg Multivitamins/Minerals/Vitamin C (Childrens Chewable Vitamin) 2 tab PO DAILY [facility] Last Admin: 05/14/17 09:30 Dose: Not Given Admin: 05/13/17 10:06 Dose: Not Given Admin: 05/12/17 08:19 Dose: 2 tab Admin: 05/11/17 08:00 Dose: 2 tab Admin: 05/10/17 10:00 Dose: 2 tab Admin: 05/09/17 08:21 Dose: 2 tab Admin: 05/08/17 08:00 Dose: 2 tab Admin: 05/07/17 09:56 Dose: 2 tab Admin: 05/06/17 09:40 Dose: 2 tab Admin: 05/05/17 08:13 Dose: 2 tab Prednisone (Prednisone) 5 mg PO DAILY [facility] Last Admin: 05/14/17 09:30 Dose: 5 mg Admin: 05/13/17 10:09 Dose: 5 mg Admin: 05/12/17 08:19 Dose: 5 mg Admin: 05/11/17 08:00 Dose: 5 mg Admin: 05/10/17 10:00 Dose: 5 mg Admin: 05/09/17 08:21 Dose: 5 mg Admin: 05/08/17 08:00 Dose: 5 mg Admin: 05/07/17 09:56 Dose: 5 mg Admin: 05/06/17 09:40 Dose: 5 mg Admin: 05/05/17 08:13 Dose: 5 mg Senna/Docusate Sodium (Senna Plus) 1 tab PO DAILY PRN PRN Reason: Constipation Sodium Chloride (Saline Flush) 10 ml FLUSH ASDIRECTED PRN PRN Reason: IV Use Last Admin: 05/12/17 16:57 Dose: 10 ml Admin: 05/12/17 07:53 Dose: 10 ml Admin: 05/11/17 07:59 Dose: 10 ml Admin: 05/09/17 07:55 Dose: 10 ml Admin: 05/07/17 16:00 Dose: 10 ml Admin: 05/06/17 16:30 Dose: 10 ml Tramadol HCl (Ultram) 50 mg PO Q4H PRN PRN Reason: Pain Last Admin: 05/14/17 09:31 Dose: 50 mg Admin: 05/13/17 21:50 Dose: 50 mg Admin: 05/13/17 13:48 Dose: 50 mg - Assessment Assessment (Free Text/Narrative):: will start wound vac, with PT - Plan Plan (Free Text/Narrative):: wound vac order placed.
--- NOTE | 2017-05-14 16:28 | OR ---
DATE OF OPERATION: 05/14/2017 SURGEON: Andreas Blackmon MD PROCEDURE PERFORMED: Debridement of left thigh. PREOPERATIVE DIAGNOSIS: Eschar, left anterior thigh. POSTOPERATIVE DIAGNOSIS: Eschar, left anterior thigh. INDICATIONS FOR PROCEDURE: This is a 76-year-old white female, who has been having some issues with pain or a chronic wound anterior to her left knee. This has been an issue for approximately a month. She fell and had a complex wound. She has been treated conservatively with Aquacel Ag, and on exam of the wound, it appeared that she would benefit from debridement of this area. DESCRIPTION OF PROCEDURE: After an excellent IV sedation was administered, the area was prepped and draped in usual sterile manner. A 10 mL of 1:1 mixture of 1% lidocaine with epinephrine 0.5% bupivacaine was used to infiltrate the area around the wound. A sharp surgical debridement was carried out removing the skin and the underlying fat down to what appeared to be viable tissue. The area was then irrigated with a normal saline using a vacuum prepared foods team leader. Dressing was applied of Aquacel Ag, and the patient was taken to recovery room in good condition. Area debrided was an area measuring [id number] cm, partially down into the fat. /[id number] KEYA/TERRELL ADORNO
[2017-05-15] MEDS: Acetaminophen/HYDROcodone 325-5 MG Tab PO PRN (00:03)
[2017-05-15] MEDS: Multivitamin, Childrens Tab.Chew PO SCH (08:36)
[2017-05-15] MEDS: Calcium Carbonate/Vitamin D3 1250 MG-200 Unit Tab PO SCH (08:36)
[2017-05-15] MEDS: Folic Acid 0.8 MG Tab PO SCH (08:36)
[2017-05-15] MEDS: Cholecalciferol (Vitamin D3) 1,000 Unit Tab PO SCH (08:36)
[2017-05-15] MEDS: Ferrous Sulfate 325 MG Tab PO SCH (08:37)
[2017-05-15] MEDS: predniSONE 5 MG Tab PO SCH (08:37)
[2017-05-15] MEDS: traMADol 50 MG Tab PO PRN (08:40)
--- NOTE | 2017-05-15 09:53 | PCM.SN ---
- Free Text/Narrative Note: wound check no sig issue. wound vac in place and functioning. will d/c iv as we are not using it.
[2017-05-16] MEDS: Ferrous Sulfate 325 MG Tab PO SCH (08:25)
[2017-05-16] MEDS: predniSONE 5 MG Tab PO SCH (08:25)
[2017-05-16] MEDS: Multivitamin, Childrens Tab.Chew PO SCH (08:25)
[2017-05-16] MEDS: Folic Acid 0.8 MG Tab PO SCH (08:25)
[2017-05-16] MEDS: Calcium Carbonate/Vitamin D3 1250 MG-200 Unit Tab PO SCH (08:25)
[2017-05-16] MEDS: Cholecalciferol (Vitamin D3) 1,000 Unit Tab PO SCH (08:26)
[2017-05-16] MEDS: traMADol 50 MG Tab PO PRN (08:28)
[2017-05-17] MEDS: predniSONE 5 MG Tab PO SCH (08:29)
[2017-05-17] MEDS: Folic Acid 0.8 MG Tab PO SCH (08:29)
[2017-05-17] MEDS: Cholecalciferol (Vitamin D3) 1,000 Unit Tab PO SCH (08:29)
[2017-05-17] MEDS: Ferrous Sulfate 325 MG Tab PO SCH (08:29)
[2017-05-17] MEDS: Calcium Carbonate/Vitamin D3 1250 MG-200 Unit Tab PO SCH (08:29)
[2017-05-17] MEDS: Multivitamin, Childrens Tab.Chew PO SCH (08:29)
[2017-05-17] MEDS: traMADol 50 MG Tab PO PRN (08:30)
--- NOTE | 2017-05-17 10:27 | PCM.SN ---
- Free Text/Narrative Note: wound vac change. granulation tissue is forming. tissue culture results back. will place on some levaquin for a week.
[2017-05-17] MEDS ORDERED: Levofloxacin 500 MG Tab PO SCH ×2 (11:00→15:00)
[2017-05-18] MEDS: Calcium Carbonate/Vitamin D3 1250 MG-200 Unit Tab PO SCH (08:17)
[2017-05-18] MEDS: traMADol 50 MG Tab PO PRN (08:18)
[2017-05-18] MEDS: Cholecalciferol (Vitamin D3) 1,000 Unit Tab PO SCH (08:18)
[2017-05-18] MEDS: Ferrous Sulfate 325 MG Tab PO SCH (08:18)
[2017-05-18] MEDS: Folic Acid 0.8 MG Tab PO SCH (08:18)
[2017-05-18] MEDS: predniSONE 5 MG Tab PO SCH (08:18)
[2017-05-18] MEDS: Multivitamin, Childrens Tab.Chew PO SCH (08:22)
[2017-05-18] MEDS: Amoxicillin 500 MG Cap PO SCH ×2 (10:04→20:37)
[2017-05-19 09:32] VITALS: BP 125/78
[2017-05-19] MEDS: Multivitamin, Childrens Tab.Chew PO SCH (09:39)
[2017-05-19] MEDS: Methotrexate 2.5 MG Tab PO SCH (09:39)
[2017-05-19] MEDS: Calcium Carbonate/Vitamin D3 1250 MG-200 Unit Tab PO SCH (09:39)
[2017-05-19] MEDS: predniSONE 5 MG Tab PO SCH (09:40)
[2017-05-19] MEDS: Folic Acid 0.8 MG Tab PO SCH (09:40)
[2017-05-19] MEDS: Ferrous Sulfate 325 MG Tab PO SCH (09:40)
[2017-05-19] MEDS: Cholecalciferol (Vitamin D3) 1,000 Unit Tab PO SCH (09:40)
[2017-05-19] MEDS: Amoxicillin 500 MG Cap PO SCH (09:40)
[2017-05-19] MEDS: Acetaminophen/HYDROcodone 325-5 MG Tab PO PRN (09:52)
--- NOTE | 2017-05-19 11:37 | PCM.DCSUM1 ---
Discharge Summary - Hospital Course Free Text/Narrative:: Pt was taken to OR and had debridement performed of the narcotic tissue. Was placed on a wound vac to and did well. granulation tissue is forming. tissue culture demonstrated some infection and she was placed on 4 days worth of antibiotic. she will be discharged with follow up in PT for outpt wound care. - Discharge Data Discharge Date: 05/19/17 Discharge Disposition: Home, W Home Health Agency 06 Condition: Good - Discharge Diagnosis/Problem(s) (1) Skin eschar SNOMED Code(s): 273271369 ICD Code: R23.4 - CHANGES IN SKIN TEXTURE Status: Acute Current Visit: Yes (2) Laceration of thigh, left, complicated SNOMED Code(s): 67407323 ICD Code: S71.112A - LACERATION WITHOUT FOREIGN BODY, LEFT THIGH, INIT ENCNTR Status: Acute Current Visit: No Qualifiers: Encounter type: sequela Qualified Code(s): S71.112S - Laceration without foreign body, left thigh, sequela - Patient Summary/Data Operative Procedure(s) Performed: debridement of eschar and fat left thigh wound Consults: Consultations 05/04/17 13:34 OT Evaluation and Treatment [CONS] Routine Please Evaluate and Treat. OT Reason for Consult: ADL's Pending Discharge: No Discharge Disposition: [facility] This query below is only for informational purposes and is not editable. Admission Diagnosis/Problem: Laceration - injury 05/04/17 13:42 PT Evaluation and Treatment [CONS] Routine Please Evaluate and Treat. PT Reason for Consult: Ambulation Pending Discharge: No Discharge Disposition: [facility] Facility This query below is only for informational purposes and is not editable. Admission Diagnosis/Problem: Laceration - injury - Patient Instructions Diet: Usual Diet as Tolerated Activity: Bedrest, May Use Bathroom, Full Weight Bearing, No Lifting Over 10 Pounds Activity, Other: full length knee brace to be on at all times when wt.bearing Showering/Bathing: May Shower Wound/Incision Care: Do NOT Change Dressing Notify Provider of: Fever, Increased Pain, Swelling and Redness, Drainage - Discharge Plan Prescriptions/Med Rec: Acetaminophen/HYDROcodone [[place] 325-5 MG] 1 tab PO Q4H PRN #10 tablet PRN Reason: Pain Amoxicillin [Amoxil] 500 mg PO Q12H #8 cap Home Medications: Home Meds Folic Acid 800 mcg PO DAILY 05/19/16 [History] Glucosamine & Chonroitin Chewable 2 tab PO DAILY 05/19/16 [History] Calcium Carb/Vitamin D3/Vit K1 [Viactiv Soft Chew] 1 tab PO DAILY 03/29/17 [ History] Cholecalciferol (Vitamin D3) [Vitamin D3] 1,000 unit PO DAILY 03/29/17 [History] Methotrexate 10 mg PO WE@08,18 03/29/17 [History] Multivitamin [Multivitamins] 2 tab PO DAILY 03/29/17 [History] Iron 18 mg PO DAILY 04/26/17 [History] Iron Bis-Gly/FA/C/B12/Ca/Succ [Iron 21/7 Tablet] 1 each PO DAILY 04/26/17 [ History] predniSONE 5 mg PO DAILY tablet 05/12/17 [Rx] Acetaminophen/HYDROcodone [[place] 325-5 MG] 1 tab PO Q4H PRN #10 tablet 05/19/17 [Rx] Amoxicillin [Amoxil] 500 mg PO Q12H #8 cap 05/19/17 [Rx] Other Amb Orders: PT Evaluation and Treatment [CONS] Location: Determined By Patient Patient Handouts: Fall Prevention in Hospitals, Adult Referrals: Andreas Blackmon MD [Physician] - 05/18/17 - Review of Systems General: Reports: No Symptoms Skin: Reports: Other (wound is developing granulation tissue ) - Patient Data Vitals - Most Recent: Last Vital Signs Temp 36.6 C 05/19/17 08:00 Pulse 78 05/19/17 08:00 Resp 18 05/19/17 08:00 BP 125/78 05/19/17 08:00 Pulse Ox 95 05/19/17 08:00 Weight - Most Recent: 43.998 kg STACEY Results - Last 24 hrs: Microbiology 05/13/17 09:05 Specimen Source - Final Tissue - Thigh, Left Gram Stain - Final Tissue Culture - Preliminary Med Orders - Current: Current Medications Hydrocodone Bitart/Acetaminophen ([place] 325-5 Mg) 1 tab PO Q4H PRN PRN Reason: Pain Last Admin: 05/19/17 09:52 Dose: 1 tab Amoxicillin (Amoxil) 500 mg PO Q12H EWA Last Admin: 05/19/17 09:40 Dose: 500 mg Calcium Carbonate (Calcium Carbonate/Vitamin D 1250 Mg-200 Unit) 1 tab PO DAILY [facility] Last Admin: 05/19/17 09:39 Dose: 1 tab Cholecalciferol (Vitamin D3) 1,000 units PO DAILY [facility] Last Admin: 05/19/17 09:40 Dose: 1,000 units Ferrous Sulfate (Ferrous Sulfate) 325 mg PO DAILY [facility] Last Admin: 05/19/17 09:40 Dose: 325 mg Folic Acid (Folic Acid) 0.8 mg PO DAILY [facility] Last Admin: 05/19/17 09:40 Dose: 0.8 mg Sodium Chloride (Normal Saline) 250 mls @ 125 mls/hr IV ASDIRECTED [facility] Last Admin: 05/11/17 16:08 Dose: 125 mls/hr Methotrexate (Methotrexate) 10 mg PO WE@ [facility] Last Admin: 05/19/17 09:39 Dose: 10 mg Multivitamins/Minerals/Vitamin C (Childrens Chewable Vitamin) 2 tab PO DAILY [facility] Last Admin: 05/19/17 09:39 Dose: 2 tab Prednisone (Prednisone) 5 mg PO DAILY [facility] Last Admin: 05/19/17 09:40 Dose: 5 mg Senna/Docusate Sodium (Senna Plus) 1 tab PO DAILY PRN PRN Reason: Constipation Sodium Chloride (Saline Flush) 10 ml FLUSH ASDIRECTED PRN PRN Reason: IV Use Last Admin: 05/12/17 16:57 Dose: 10 ml Tramadol HCl (Ultram) 50 mg PO Q4H PRN PRN Reason: Pain Last Admin: 05/18/17 08:18 Dose: 50 mg Discontinued Medications Fentanyl (Sublimaze) 25 mcg IV .STK-MED ONE Stop: 05/13/17 08:31 Ceftriaxone Sodium 1,000 mg/ (Sodium Chloride) 50 mls @ 100 mls/hr IV Q24H [facility] Last Admin: 05/12/17 16:59 Dose: 100 mls/hr Levofloxacin (Levaquin) 500 mg PO Q24H [facility] Last Admin: 05/17/17 14:15 Dose: Not Given Levofloxacin (Levaquin) 500 mg PO Q24H [facility] Last Admin: 05/17/17 14:14 Dose: 500 mg Midazolam HCl (Versed 1 Mg/Ml) 1 mg IV .STK-MED ONE Stop: 05/13/17 08:31 Propofol (Diprivan 20 Ml) 120 mg IV .STK-MED ONE Stop: 05/13/17 08:31 - Exam Skin: Reports: Warm, Dry, Intact Wound/Incisions: Reports: Healing Well *Q Meaningful Use (DIS) - VTE *Q VTE Criteria *Q: - Stroke *Q Stroke Criteria *Q: - AMI *Q AMI Criteria *Q:
[2017-05-19] MEDS ORDERED: Amoxicillin 250 MG/5 ML Susp 100 ML Bottle PO SCH (12:15)
[2017-05-19] MEDS ORDERED: Amoxicillin 250 MG/5 ML Susp 100 ML Bottle PO ONE (12:38)
== END 2017-05-19 16:00 | disposition home health service (06) | DRG 572 ==
LOC: FB.MS 12:10
PROVIDERS: ADMIT Orthopaedic Surgery; ATTEND Surgery
PROC: 0JBM0ZZ Excision of Left Upper Leg Subcutaneous Tissue and Fascia, Open Approach (ICD-10-PCS; principal; 2017-05-14)
DX: S71.112A Laceration without foreign body, left thigh, initial encounter (principal); S81.012D Laceration without foreign body, left knee, subsequent encounter; G72.41 Inclusion body myositis [IBM]; D64.9 Anemia, unspecified; W18.30XD Fall on same level, unspecified, subsequent encounter; Y92.009 Unspecified place in unspecified non-institutional (private) residence as the place of occurrence of the external cause; Z91.81 History of falling; Z79.52 Long term (current) use of systemic steroids
CPT/HCPCS: 36415; 85025; 86140; 87070; 87075; 87205; 94150; 97110-GP; 97116-GP; 97163-GP; 97165-GO; 97530-GO-KX; 97530-GP; 97535-GO; 97597-GP; 97606-GP; 97760-GO; A4217; A9270-GY; J0696; J2250; J2704; J3010; J7050; J8610

== ENCOUNTER 2023-06-21 18:28 | Inpatient (IN) | payer MEDICARE, OTHER ==
[2023-06-21] MEDS: Sodium Chloride 0.9% 10 ML Syringe FLUSH PRN (18:49)
[2023-06-21] MEDS ORDERED: Sodium Chloride 0.9% 500 ML IV ONE ×3 (19:09→21:36)
[2023-06-21 19:25] LABS: HEMATOCRIT 55.1 % (34.2-48.2); HEMOGLOBIN 18.2 g/dL (11.4-15.5); MEAN CORPUSCULAR HEMOGLOBIN 30.8 pg (23.9-33.9); MEAN CORPUSCULAR VOLUME 93.3 fL (76.7-100.5); MEAN PLATELET VOLUME 7.7 fL (7.1-12.4); PLATELET COUNT,PLT 415 x10(3)uL (151-488); RED BLOOD CELL COUNT 5.91 x10(6)uL (3.60-5.20); RED CELL DISTRIBUTION WIDTH 15.8 % (12.3-16.5); WHITE BLOOD CELL COUNT,WBC 26.8 x10-3/uL (3.0-10.3)
[2023-06-21 19:30] LABS: BLOOD UREA NITROGEN,BUN 49 mg/dL (7-18); CALCIUM 8.9 mg/dL (8.6-10.2); CARBON DIOXIDE,CO2 22 mmol/L (21-32); CHLORIDE,CL 95 mmol/L (100-110); CREATININE 0.7 mg/dL (0.55-1.02); ESTIMATED GFR 85 mL/min (>60); GLUCOSE RANDOM 105 mg/dL (80-116); POTASSIUM,K 4.5 mmol/L (3.5-5.3); SODIUM,NA 134 mmol/L (135-145)
[2023-06-21 19:46] LABS: C-REACTIVE PROTEIN 5.75 mg/dL (<0.33); TROPONIN I 1097.7 pg/mL (4.0-60.3)
[2023-06-21 19:47] LABS: A/G RATIO 1.1; ALANINE AMINOTRANSFERASE,ALT 99 U/L (12-36); ALBUMIN 3.8 g/dL (3.2-4.6); ALKALINE PHOSPHATASE 82 IU/L (56-112); BILIRUBIN TOTAL 1.2 mg/dL (0.1-1.3); MAGNESIUM 2.3 mg/dL (1.8-2.5); PROTEIN TOTAL,TP 7.4 g/dL (6.0-8.0)
[2023-06-21 19:56] LABS: BASE EXCESS VENOUS,POC -1 mmol/L (-2 - 3+); PCO2 VENOUS,POC 38 mmHg (41-51)
[2023-06-21 20:05] LABS: BAND PERCENT MAN 7 % (0-6); EOSINOPHILS PERCENT MAN 1 % (0-5); LYMPHOCYTES PERCENT MAN 12 % (13-37); MONOCYTES PERCENT MAN 7 % (4-12); SEG NEUTROPHILS PERCENT MAN 73 % (46-82)
[2023-06-21 20:06] LABS: BILIRUBIN,URINE NEGATIVE (NEGATIVE); GLUCOSE,URINE NORMAL (NORMAL); KETONES,URINE 15 mg/dL (NEGATIVE); LEUKOCYTE ESTERASE,URINE NEGATIVE (NEGATIVE); NITRITE,URINE NEGATIVE (NEGATIVE); OCCULT BLOOD,URINE LARGE (NEGATIVE); PROTEIN,URINE 500 mg/dL (NEGATIVE); UROBILINOGEN,URINE NORMAL (NEGATIVE)
[2023-06-21 20:09] LABS: APPEARANCE,URINE SLIGHTLY CLOUDY (CLEAR); BACTERIA,URINE FEW (NS); COARSE GRANULAR CASTS,URINE RARE (NS); COLOR,URINE YELLOW (YELLOW); RBC,URINE 0-5 (0-5); SQUAMOUS EPITHELIAL CELLS,UR OCCASIONAL (NS,R,O); WBC,URINE 0-5 (0-5)
[2023-06-21 20:10] LABS: INFLUENZA A NAA NEGATIVE (NEGATIVE); INFLUENZA B NAA NEGATIVE (NEGATIVE); RESPIRATORY SYNCYTIAL VIR NAA NEGATIVE (NEGATIVE)
[2023-06-21 20:12] LABS: CORONAVIRUS COVID-19 NAA NEGATIVE (NEGATIVE)
[2023-06-21 20:52] LABS: ASPARTATE AMNIOTRANSFERASE,AST 433 IU/L (5-25)
[2023-06-21 20:53] LABS: CREATINE KINASE,CK 6344 IU/L (60-160)
[2023-06-21] MEDS ORDERED: cefTRIAXone 1 GM Vial IVPUSH ONE (21:38)
[2023-06-21] MEDS: Sodium Chloride 0.9% 1,000 ML IV SCH (22:43)
[2023-06-21] MEDS ORDERED: Iopamidol 755 Mg/ML 100 ML Bottle IV SCH (23:45)
[2023-06-22] MEDS ORDERED: Acetaminophen 500 MG Tab PO ONE (02:36)
[2023-06-22] MEDS ORDERED: Ondansetron 4 MG/2 ML SDV IV PRN (03:06)
[2023-06-22] MEDS: Saccharomyces Boulardii (Probiotic) 250 MG Cap PO SCH ×3 (05:03→20:55)
[2023-06-22] MEDS ORDERED: Acetaminophen 325 MG Tab PO PRN (06:30)
[2023-06-22 06:54] LABS: HEMATOCRIT 45.8 % (34.2-48.2); HEMOGLOBIN 15.1 g/dL (11.4-15.5); MEAN CORPUSCULAR HEMOGLOBIN 30.9 pg (23.9-33.9); MEAN CORPUSCULAR HGB CONC 33.1 g/dL (31.9-34.8); MEAN CORPUSCULAR VOLUME 93.5 fL (76.7-100.5); MEAN PLATELET VOLUME 7.6 fL (7.1-12.4); PLATELET COUNT,PLT 301 x10(3)uL (151-488); RED BLOOD CELL COUNT 4.89 x10(6)uL (3.60-5.20); RED CELL DISTRIBUTION WIDTH 15.7 % (12.3-16.5); WHITE BLOOD CELL COUNT,WBC 14.6 x10-3/uL (3.0-10.3)
[2023-06-22 07:20] LABS: BLOOD UREA NITROGEN,BUN 46 mg/dL (7-18); CALCIUM 7.4 mg/dL (8.6-10.2); CARBON DIOXIDE,CO2 18 mmol/L (21-32); CHLORIDE,CL 104 mmol/L (100-110); CREATININE 0.5 mg/dL (0.55-1.02); EST CRCL DRUG DOSING (CG) 56.68 mL/min; ESTIMATED GFR 92 mL/min (>60); GLUCOSE RANDOM 81 mg/dL (80-116); POTASSIUM,K 3.7 mmol/L (3.5-5.3); SODIUM,NA 139 mmol/L (135-145)
[2023-06-22 07:23] LABS: CREATINE KINASE,CK 5169 IU/L (60-160)
[2023-06-22 07:27] LABS: BAND PERCENT MAN 2 % (0-6); LYMPHOCYTES PERCENT MAN 5 % (13-37); MONOCYTES PERCENT MAN 8 % (4-12); SEG NEUTROPHILS PERCENT MAN 85 % (46-82)
[2023-06-22] MEDS: Enoxaparin 40 MG/0.4 ML Syringe SUBCUT SCH (09:18)
[2023-06-22] MEDS: Pantoprazole 40 MG Vial IVPUSH SCH ×2 (09:18→21:07)
[2023-06-22] MEDS: Sodium Chloride 0.9% 1,000 ML IV SCH ×2 (09:18→18:05)
[2023-06-22] MEDS: Acetaminophen Soln 650 MG/20.3 ML UD Cup PO PRN (11:21)
[2023-06-22] MEDS ORDERED: VANCOmycin 1.25 GM/250 ML 1.25 GM in Premix Bag 1 BAG IV SCH (17:00)
[2023-06-22] MEDS: Acetaminophen/HYDROcodone 325-5 MG Tab PO PRN (20:53)
[2023-06-22] MEDS: cefTRIAXone 1 GM Vial IVPUSH SCH (21:20)
[2023-06-23] MEDS: Sodium Chloride 0.9% 1,000 ML IV SCH (04:28)
[2023-06-23 06:53] LABS: BASOPHILS PERCENT AUTO 0.2 % (0.2-1.5); HEMATOCRIT 42.7 % (34.2-48.2); HEMOGLOBIN 13.9 g/dL (11.4-15.5); LYMPHOCYTES ABSOLUTE AUTO 1.1 x10-3/uL (1.0-4.4); LYMPHOCYTES PERCENT AUTO 10.8 % (18.4-52.1); MEAN CORPUSCULAR HEMOGLOBIN 30.5 pg (23.9-33.9); MEAN CORPUSCULAR HGB CONC 32.6 g/dL (31.9-34.8); MEAN CORPUSCULAR VOLUME 93.5 fL (76.7-100.5); MEAN PLATELET VOLUME 7.3 fL (7.1-12.4); MONOCYTES ABSOLUTE AUTO 1.1 x10-3/uL (0.3-1.0); MONOCYTES PERCENT AUTO 11.1 % (4.4-15.7); NEUTROPHILS PERCENT AUTO 77.9 % (30.8-76.2); PLATELET COUNT,PLT 230 x10(3)uL (151-488); RED BLOOD CELL COUNT 4.57 x10(6)uL (3.60-5.20); RED CELL DISTRIBUTION WIDTH 16.1 % (12.3-16.5); WHITE BLOOD CELL COUNT,WBC 10.3 x10-3/uL (3.0-10.3)
[2023-06-23 07:28] LABS: A/G RATIO 0.8; ALANINE AMINOTRANSFERASE,ALT 66 U/L (12-36); ALBUMIN 2.4 g/dL (3.2-4.6); ALKALINE PHOSPHATASE 51 IU/L (56-112); BILIRUBIN TOTAL 0.7 mg/dL (0.1-1.3); BLOOD UREA NITROGEN,BUN 29 mg/dL (7-18); CALCIUM 6.9 mg/dL (8.6-10.2); CARBON DIOXIDE,CO2 21 mmol/L (21-32); CHLORIDE,CL 111 mmol/L (100-110); CREATININE 0.3 mg/dL (0.55-1.02); EST CRCL DRUG DOSING (CG) 94.46 mL/min; ESTIMATED GFR 105 mL/min (>60); GLUCOSE RANDOM 69 mg/dL (80-116); POTASSIUM,K 3.2 mmol/L (3.5-5.3); PROTEIN TOTAL,TP 5.3 g/dL (6.0-8.0); SODIUM,NA 145 mmol/L (135-145)
[2023-06-23 07:30] LABS: ASPARTATE AMNIOTRANSFERASE,AST 166 IU/L (5-25); BUN/CREATININE RATIO 96.7 (9-20); CREATINE KINASE,CK 1739 IU/L (60-160)
[2023-06-23] MEDS: Saccharomyces Boulardii (Probiotic) 250 MG Cap PO SCH ×2 (08:48→20:54)
[2023-06-23] MEDS: Enoxaparin 40 MG/0.4 ML Syringe SUBCUT SCH (08:49)
[2023-06-23] MEDS: Pantoprazole 40 MG Vial IVPUSH SCH ×2 (08:50→20:55)
[2023-06-23] MEDS: Dextrose 5%-0.9% NaCl with KCl 1,000 ML IV SCH (11:08)
[2023-06-23] MEDS: VANCOmycin 1.5 GM/300 ML 1.5 GM in Premix Bag 1 BAG IV SCH (11:15)
[2023-06-23] MEDS ORDERED: hydrOXYzine HCl 10 MG Tab PO PRN (11:51)
[2023-06-23] MEDS: Melatonin 3 MG Tab PO SCH (20:54)
[2023-06-23] MEDS: Acetaminophen Soln 650 MG/20.3 ML UD Cup PO PRN (20:55)
[2023-06-23] MEDS: cefTRIAXone 1 GM Vial IVPUSH SCH (21:20)
[2023-06-23] MEDS: Sodium Chloride 0.9% 10 ML Syringe FLUSH PRN (21:30)
[2023-06-24] MEDS: Dextrose 5%-0.9% NaCl with KCl 1,000 ML IV SCH ×3 (01:32→16:08)
[2023-06-24] MEDS: VANCOmycin 1.5 GM/300 ML 1.5 GM in Premix Bag 1 BAG IV SCH ×2 (04:58→22:44)
[2023-06-24 06:18] LABS: BASOPHILS PERCENT AUTO 0.2 % (0.2-1.5); EOSINOPHILS PERCENT AUTO 0.5 % (0.6-8.1); HEMATOCRIT 41.2 % (34.2-48.2); HEMOGLOBIN 13.7 g/dL (11.4-15.5); LYMPHOCYTES PERCENT AUTO 12.9 % (18.4-52.1); MEAN CORPUSCULAR HEMOGLOBIN 31.3 pg (23.9-33.9); MEAN CORPUSCULAR HGB CONC 33.3 g/dL (31.9-34.8); MEAN CORPUSCULAR VOLUME 93.9 fL (76.7-100.5); MEAN PLATELET VOLUME 7.1 fL (7.1-12.4); MONOCYTES ABSOLUTE AUTO 0.8 x10-3/uL (0.3-1.0); MONOCYTES PERCENT AUTO 11.2 % (4.4-15.7); NEUTROPHILS ABSOLUTE AUTO 5.7 x10-3/uL (1.5-6.3); NEUTROPHILS PERCENT AUTO 75.2 % (30.8-76.2); PLATELET COUNT,PLT 222 x10(3)uL (151-488); RED BLOOD CELL COUNT 4.39 x10(6)uL (3.60-5.20); RED CELL DISTRIBUTION WIDTH 15.8 % (12.3-16.5); WHITE BLOOD CELL COUNT,WBC 7.6 x10-3/uL (3.0-10.3)
[2023-06-24 06:39] LABS: A/G RATIO 0.8; ALANINE AMINOTRANSFERASE,ALT 57 U/L (12-36); ALBUMIN 2.1 g/dL (3.2-4.6); ALKALINE PHOSPHATASE 49 IU/L (56-112); ASPARTATE AMNIOTRANSFERASE,AST 92 IU/L (5-25); BILIRUBIN TOTAL 0.6 mg/dL (0.1-1.3); BLOOD UREA NITROGEN,BUN 15 mg/dL (7-18); CALCIUM 7.3 mg/dL (8.6-10.2); CARBON DIOXIDE,CO2 25 mmol/L (21-32); CHLORIDE,CL 115 mmol/L (100-110); CREATININE 0.3 mg/dL (0.55-1.02); EST CRCL DRUG DOSING (CG) 94.45 mL/min; ESTIMATED GFR 105 mL/min (>60); GLUCOSE RANDOM 112 mg/dL (80-116); POTASSIUM,K 3.4 mmol/L (3.5-5.3); PROTEIN TOTAL,TP 4.8 g/dL (6.0-8.0); SODIUM,NA 148 mmol/L (135-145)
[2023-06-24 06:41] LABS: CREATINE KINASE,CK 794 IU/L (60-160)
[2023-06-24] MEDS: Acetaminophen/HYDROcodone 325-5 MG Tab PO PRN (08:49)
[2023-06-24] MEDS: Saccharomyces Boulardii (Probiotic) 250 MG Cap PO SCH ×2 (08:57→21:12)
[2023-06-24] MEDS: Enoxaparin 40 MG/0.4 ML Syringe SUBCUT SCH (08:58)
[2023-06-24] MEDS: Pantoprazole 40 MG Vial IVPUSH SCH ×2 (08:58→21:13)
[2023-06-24] MEDS: Acetaminophen Soln 650 MG/20.3 ML UD Cup PO PRN (16:25)
[2023-06-24] MEDS: Acetaminophen 325 MG Tab PO PRN (21:10)
[2023-06-24] MEDS: Melatonin 3 MG Tab PO SCH (21:12)
[2023-06-24] MEDS: cefTRIAXone 1 GM Vial IVPUSH SCH (21:19)
[2023-06-25] MEDS: Dextrose 5%-0.9% NaCl with KCl 1,000 ML IV SCH (06:55)
[2023-06-25] MEDS: Saccharomyces Boulardii (Probiotic) 250 MG Cap PO SCH ×2 (09:25→20:21)
[2023-06-25] MEDS: Enoxaparin 40 MG/0.4 ML Syringe SUBCUT SCH (09:25)
[2023-06-25] MEDS: Pantoprazole 40 MG Vial IVPUSH SCH ×2 (09:25→20:25)
[2023-06-25] MEDS: Sodium Chloride 0.9% 10 ML Syringe FLUSH PRN ×4 (09:34→21:21)
[2023-06-25] MEDS: Sodium Chloride 0.45% with KCl 1,000 ML IV SCH ×2 (09:41→22:47)
[2023-06-25] MEDS: Acetaminophen/HYDROcodone 325-5 MG Tab PO PRN ×2 (11:33→20:33)
[2023-06-25] MEDS: Melatonin 3 MG Tab PO SCH (20:20)
[2023-06-25] MEDS: Magnesium Hydroxide 400 MG/5 ML Susp 30 ML Cup PO PRN (20:33)
[2023-06-25] MEDS: cefTRIAXone 1 GM Vial IVPUSH SCH (21:20)
[2023-06-26 06:22] LABS: BASOPHILS PERCENT AUTO 0.6 % (0.2-1.5); EOSINOPHILS ABSOLUTE AUTO 0.4 x10-3/uL (0.0-0.8); EOSINOPHILS PERCENT AUTO 5.5 % (0.6-8.1); HEMATOCRIT 41.8 % (34.2-48.2); HEMOGLOBIN 13.8 g/dL (11.4-15.5); LYMPHOCYTES ABSOLUTE AUTO 1.4 x10-3/uL (1.0-4.4); LYMPHOCYTES PERCENT AUTO 19.8 % (18.4-52.1); MEAN CORPUSCULAR HEMOGLOBIN 30.9 pg (23.9-33.9); MEAN CORPUSCULAR HGB CONC 33.1 g/dL (31.9-34.8); MEAN CORPUSCULAR VOLUME 93.5 fL (76.7-100.5); MEAN PLATELET VOLUME 7.4 fL (7.1-12.4); MONOCYTES ABSOLUTE AUTO 0.5 x10-3/uL (0.3-1.0); MONOCYTES PERCENT AUTO 7.2 % (4.4-15.7); NEUTROPHILS ABSOLUTE AUTO 4.8 x10-3/uL (1.5-6.3); NEUTROPHILS PERCENT AUTO 66.9 % (30.8-76.2); PLATELET COUNT,PLT 212 x10(3)uL (151-488); RED BLOOD CELL COUNT 4.47 x10(6)uL (3.60-5.20); RED CELL DISTRIBUTION WIDTH 15.6 % (12.3-16.5); WHITE BLOOD CELL COUNT,WBC 7.2 x10-3/uL (3.0-10.3)
[2023-06-26 06:41] LABS: A/G RATIO 0.8; ALANINE AMINOTRANSFERASE,ALT 43 U/L (12-36); ALBUMIN 2.1 g/dL (3.2-4.6); ALKALINE PHOSPHATASE 62 IU/L (56-112); ASPARTATE AMNIOTRANSFERASE,AST 50 IU/L (5-25); BILIRUBIN TOTAL 0.5 mg/dL (0.1-1.3); BLOOD UREA NITROGEN,BUN 6 mg/dL (7-18); CALCIUM 7.4 mg/dL (8.6-10.2); CARBON DIOXIDE,CO2 27 mmol/L (21-32); CHLORIDE,CL 109 mmol/L (100-110); CREATININE 0.2 mg/dL (0.55-1.02); EST CRCL DRUG DOSING (CG) 141.68 mL/min; ESTIMATED GFR 115 mL/min (>60); GLUCOSE RANDOM 87 mg/dL (80-116); POTASSIUM,K 4.2 mmol/L (3.5-5.3); PROTEIN TOTAL,TP 4.9 g/dL (6.0-8.0); SODIUM,NA 140 mmol/L (135-145)
[2023-06-26 06:43] LABS: CREATINE KINASE,CK 321 IU/L (60-160)
[2023-06-26] MEDS: Saccharomyces Boulardii (Probiotic) 250 MG Cap PO SCH ×2 (08:22→20:20)
[2023-06-26] MEDS: Enoxaparin 40 MG/0.4 ML Syringe SUBCUT SCH (08:22)
[2023-06-26] MEDS: Sodium Chloride 0.9% 10 ML Syringe FLUSH PRN ×5 (09:03→21:38)
[2023-06-26] MEDS: Pantoprazole 40 MG Vial IVPUSH SCH ×2 (09:04→20:15)
[2023-06-26] MEDS: Acetaminophen/HYDROcodone 325-5 MG Tab PO PRN ×2 (09:45→20:28)
[2023-06-26] MEDS: Melatonin 3 MG Tab PO SCH (20:20)
[2023-06-26] MEDS: cefTRIAXone 1 GM Vial IVPUSH SCH (21:37)
[2023-06-27] MEDS: Magnesium Hydroxide 400 MG/5 ML Susp 30 ML Cup PO PRN (04:30)
[2023-06-27] MEDS: Acetaminophen 325 MG Tab PO PRN ×3 (04:40→20:32)
[2023-06-27] MEDS: Enoxaparin 40 MG/0.4 ML Syringe SUBCUT SCH (08:53)
[2023-06-27] MEDS: Saccharomyces Boulardii (Probiotic) 250 MG Cap PO SCH ×2 (08:53→20:32)
[2023-06-27] MEDS: Sodium Chloride 0.9% 10 ML Syringe FLUSH PRN ×4 (10:02→21:04)
[2023-06-27] MEDS: Pantoprazole 40 MG Vial IVPUSH SCH ×2 (10:02→20:35)
[2023-06-27] MEDS: Melatonin 3 MG Tab PO SCH (20:32)
[2023-06-27] MEDS ORDERED: cefTRIAXone 1 GM Vial ONE (20:59)
[2023-06-27] MEDS: cefTRIAXone 1 GM Vial IVPUSH SCH (21:03)
[2023-06-28 07:04] LABS: BLOOD UREA NITROGEN,BUN 7 mg/dL (7-18); CALCIUM 7.8 mg/dL (8.6-10.2); CARBON DIOXIDE,CO2 29 mmol/L (21-32); CHLORIDE,CL 105 mmol/L (100-110); CREATININE 0.2 mg/dL (0.55-1.02); EST CRCL DRUG DOSING (CG) 141.68 mL/min; ESTIMATED GFR 115 mL/min (>60); GLUCOSE RANDOM 79 mg/dL (80-116); POTASSIUM,K 3.7 mmol/L (3.5-5.3); SODIUM,NA 138 mmol/L (135-145)
[2023-06-28 07:05] LABS: BASOPHILS PERCENT AUTO 0.6 % (0.2-1.5); EOSINOPHILS ABSOLUTE AUTO 0.4 x10-3/uL (0.0-0.8); EOSINOPHILS PERCENT AUTO 5.9 % (0.6-8.1); HEMATOCRIT 42.7 % (34.2-48.2); HEMOGLOBIN 14.3 g/dL (11.4-15.5); LYMPHOCYTES ABSOLUTE AUTO 1.2 x10-3/uL (1.0-4.4); LYMPHOCYTES PERCENT AUTO 15.3 % (18.4-52.1); MEAN CORPUSCULAR HGB CONC 33.4 g/dL (31.9-34.8); MEAN CORPUSCULAR VOLUME 92.9 fL (76.7-100.5); MEAN PLATELET VOLUME 7.6 fL (7.1-12.4); MONOCYTES ABSOLUTE AUTO 0.6 x10-3/uL (0.3-1.0); MONOCYTES PERCENT AUTO 8.2 % (4.4-15.7); NEUTROPHILS ABSOLUTE AUTO 5.3 x10-3/uL (1.5-6.3); PLATELET COUNT,PLT 246 x10(3)uL (151-488); RED CELL DISTRIBUTION WIDTH 15.4 % (12.3-16.5); WHITE BLOOD CELL COUNT,WBC 7.6 x10-3/uL (3.0-10.3)
[2023-06-28] MEDS: Enoxaparin 40 MG/0.4 ML Syringe SUBCUT SCH (08:54)
[2023-06-28] MEDS: Pantoprazole 40 MG Vial IVPUSH SCH ×2 (08:55→21:39)
[2023-06-28] MEDS: Sodium Chloride 0.9% 10 ML Syringe FLUSH PRN (08:56)
[2023-06-28] MEDS: Saccharomyces Boulardii (Probiotic) 250 MG Cap PO SCH ×2 (09:00→21:34)
[2023-06-28] MEDS: Melatonin 3 MG Tab PO SCH (21:35)
[2023-06-28] MEDS: cefTRIAXone 1 GM Vial IVPUSH SCH (21:42)
[2023-06-29 06:34] LABS: BASOPHILS PERCENT AUTO 0.5 % (0.2-1.5); EOSINOPHILS ABSOLUTE AUTO 0.3 x10-3/uL (0.0-0.8); EOSINOPHILS PERCENT AUTO 3.6 % (0.6-8.1); HEMATOCRIT 42.4 % (34.2-48.2); HEMOGLOBIN 13.9 g/dL (11.4-15.5); LYMPHOCYTES PERCENT AUTO 12.5 % (18.4-52.1); MEAN CORPUSCULAR HEMOGLOBIN 30.8 pg (23.9-33.9); MEAN CORPUSCULAR HGB CONC 32.8 g/dL (31.9-34.8); MEAN CORPUSCULAR VOLUME 93.7 fL (76.7-100.5); MEAN PLATELET VOLUME 7.6 fL (7.1-12.4); MONOCYTES ABSOLUTE AUTO 0.8 x10-3/uL (0.3-1.0); MONOCYTES PERCENT AUTO 10.1 % (4.4-15.7); NEUTROPHILS ABSOLUTE AUTO 5.6 x10-3/uL (1.5-6.3); NEUTROPHILS PERCENT AUTO 73.3 % (30.8-76.2); PLATELET COUNT,PLT 248 x10(3)uL (151-488); RED BLOOD CELL COUNT 4.52 x10(6)uL (3.60-5.20); RED CELL DISTRIBUTION WIDTH 15.8 % (12.3-16.5); WHITE BLOOD CELL COUNT,WBC 7.7 x10-3/uL (3.0-10.3)
[2023-06-29 06:48] LABS: BLOOD UREA NITROGEN,BUN 8 mg/dL (7-18); CALCIUM 7.9 mg/dL (8.6-10.2); CARBON DIOXIDE,CO2 31 mmol/L (21-32); CHLORIDE,CL 105 mmol/L (100-110); CREATINE KINASE,CK 164 IU/L (60-160); CREATININE 0.2 mg/dL (0.55-1.02); EST CRCL DRUG DOSING (CG) 141.68 mL/min; ESTIMATED GFR 115 mL/min (>60); GLUCOSE RANDOM 91 mg/dL (80-116); POTASSIUM,K 3.5 mmol/L (3.5-5.3); SODIUM,NA 138 mmol/L (135-145)
[2023-06-29 06:53] LABS: C-REACTIVE PROTEIN 1.43 mg/dL (<0.33); TROPONIN I 49.1 pg/mL (4.0-60.3)
[2023-06-29] MEDS: Pantoprazole 40 MG Vial IVPUSH SCH (08:53)
[2023-06-29] MEDS: Enoxaparin 40 MG/0.4 ML Syringe SUBCUT SCH (08:53)
[2023-06-29] MEDS: Saccharomyces Boulardii (Probiotic) 250 MG Cap PO SCH (08:54)
[2023-06-29 11:25] VITALS: BP 130/75; PULSE 87
== END 2023-06-29 10:25 | DRG 557 ==
LOC: FB.ED 18:28 → FB.MS 06-22 00:45
PROVIDERS: ADMIT Emergency Medicine; ATTEND Family Medicine
DX: I21.4 Non-ST elevation (NSTEMI) myocardial infarction (principal); M62.82 Rhabdomyolysis; E43 Unspecified severe protein-calorie malnutrition; G93.41 Metabolic encephalopathy; L89.153 Pressure ulcer of sacral region, stage 3; S50.11XA Contusion of right forearm, initial encounter; S60.221A Contusion of right hand, initial encounter; L89.319 Pressure ulcer of right buttock, unspecified stage; L89.899 Pressure ulcer of other site, unspecified stage; Z20.822 Contact with and (suspected) exposure to COVID-19; Z66 Do not resuscitate; I21.A1 Myocardial infarction type 2; W19.XXXA Unspecified fall, initial encounter; R65.20 Severe sepsis without septic shock; L03.111 Cellulitis of right axilla; N39.0 Urinary tract infection, site not specified; E87.20 Acidosis, unspecified; R64 Cachexia; Z68.1 Body mass index [BMI] 19.9 or less, adult; R29.6 Repeated falls; I95.89 Other hypotension; E86.1 Hypovolemia; R13.14 Dysphagia, pharyngoesophageal phase; G72.41 Inclusion body myositis [IBM]; K59.00 Constipation, unspecified; G89.29 Other chronic pain; B96.20 Unspecified Escherichia coli [E. coli] as the cause of diseases classified elsewhere; Z96.649 Presence of unspecified artificial hip joint; E86.0 Dehydration; Z88.8 Allergy status to other drugs, medicaments and biological substances; Z91.030 Bee allergy status; Z79.899 Other long term (current) drug therapy; Z90.710 Acquired absence of both cervix and uterus; Z86.73 Personal history of transient ischemic attack (TIA), and cerebral infarction without residual deficits; Z90.49 Acquired absence of other specified parts of digestive tract; Z90.721 Acquired absence of ovaries, unilateral
CPT/HCPCS: 0241U; 36415; 51702; 70450; 71045; 71275; 73020-50; 73090-RT; 73130-RT; 73560-LT; 73610-LT; 80048; 80053; 80202; 81001; 82550; 82947; 83605; 83735; 84484; 85025; 85379; 86140; 87040; 87086; 87186; 93005; 93010; 94150; 96361; 96374; 97110-GO; 97161-GP; 97165-GO; 99223; 99232; 99233; 99239; 99285; 99285-25; A9270-GY; C9113; J0696; J1650; J3370; J3480; J3490; J7030; J7040; J7050; Q9967; U0002